=== PATIENT | female | born 1955 | race Caucasian/White ===

== ENCOUNTER 2017-03-06 05:35 | Day surgery (SDC) | payer BC, OTHER ==
[2017-03-02 08:49] VITALS: Ht 170.2 cm; Wt 100.2 kg
--- NOTE | 2017-03-02 09:40 | PAT Medication Instructions ---
Service Date Mar 02, 2017. Current Home Medication List Ascorbic Acid (Vitamin C), 1,000 MG PO QAM Aspirin (Aspirin 81), 81 MG PO QAM Atorvastatin (Lipitor), 40 MG PO QPM Cholecalciferol (Vitamin D3), 2,000 UNIT PO QAM Citalopram Hydrobromide (Citalopram Hydrobromide), 40 MG PO QAM Cyanocobalamin (Vitamin B-12 Inj), 1,000 MCG IM MONTHLY Cyclobenzaprine Hcl (Flexeril), 1 TAB PO TID Diclofenac (Voltaren), 75 MG PO BID Esomeprazole Magnesium (Nexium), 40 MG PO QAM Estrogens, Conjugated (Premarin), 1.25 MG PO HS Ferrous Sulfate (Feosol), 65 MG PO QAM Furosemide (Lasix), 40 MG PO QAM Gabapentin (Neurontin), 100 MG PO QAM Gabapentin (Neurontin), 200 MG PO HS Metformin Hcl (Glucophage), 500 MG PO BID Metoprolol Succinate (Toprol Xl), 25 MG PO QPM Montelukast Sodium (Montelukast Sodium), 10 MG PO QAM Multivitamin (Multivitamin), 1 TAB PO QAM Nitroglycerin (Nitrostat), 0.4 MG UT UD PRN for Chest Pain Pramipexole Dihydrochloride (Pramipexole Dihydrochlori), 2 MG PO HS Valsartan (Diovan), 320 MG PO QAM Medication Instructions For Your Scheduled Surgery - Continue as directed: Cyanocobalamin (Vitamin B-12 Inj), 1,000 MCG IM MONTHLY Nitroglycerin (Nitrostat), 0.4 MG UT UD PRN for Chest Pain - Hold the following medications per surgeon's instructions Aspirin (Aspirin 81), 81 MG PO QAM Diclofenac (Voltaren), 75 MG PO BID - Hold the following medications 48 hours prior to surgery: Metformin Hcl (Glucophage), 500 MG PO BID - Hold the following medications 24 hours prior to surgery: Pramipexole Dihydrochloride (Pramipexole Dihydrochlori), 2 MG PO HS - Hold the following medications the morning of surgery: Valsartan (Diovan), 320 MG PO QAM Ascorbic Acid (Vitamin C), 1,000 MG PO QAM Cyclobenzaprine Hcl (Flexeril), 1 TAB PO TID Ferrous Sulfate (Feosol), 65 MG PO QAM Furosemide (Lasix), 40 MG PO QAM Cholecalciferol (Vitamin D3), 2,000 UNIT PO QAM Multivitamin (Multivitamin), 1 TAB PO QAM - Take the following medications the morning of surgery with a sip of water OTHERWISE NOTHING TO EAT OR DRINK AFTER MIDNIGHT: Citalopram Hydrobromide (Citalopram Hydrobromide), 40 MG PO QAM Montelukast Sodium (Montelukast Sodium), 10 MG PO QAM Esomeprazole Magnesium (Nexium), 40 MG PO QAM Gabapentin (Neurontin), 100 MG PO QAM - Take the following medications as scheduled the night before surgery: Atorvastatin (Lipitor), 40 MG PO QPM Cyclobenzaprine Hcl (Flexeril), 1 TAB PO TID Metoprolol Succinate (Toprol Xl), 25 MG PO QPM Estrogens, Conjugated (Premarin), 1.25 MG PO HS Gabapentin (Neurontin), 200 MG PO HS If you have any questions please call us at [phone] or [phone] or [phone]
--- NOTE | 2017-03-02 10:24 | DIAGNOSTIC IMAGING REPORT ---
CHEST PREADMISSION(PA/LAT) CLINICAL HISTORY: Preoperative chest. Shortness of breath. COMPARISON STUDY: 12/06/2014 FINDINGS: The cardiac and mediastinal contours are normal. There is no evidence of focal pulmonary consolidation. There is no evidence of failure. No pleural effusions are visualized.[ Postsurgical changes are present within the lumbar spine. IMPRESSION: No active disease in the chest. Electronically signed by: Santana Gunderson M.D. 03/02/2017 10:23 AM Dictated Date/Time: 03/02/2017 10:23 AM
[2017-03-02 10:40] LABS: BASO % 0.5 %; BASO ABS # 0.04 K/uL (0-0.2); COMPLETE YES; HEMATOCRIT 36.1 % (37-47); IG% 0.1 %; LYMPH % 24.9 %; LYMPH ABS # 2.02 K/uL (1.2-3.4); MEAN CELL VOLUME 88.5 fL (80-100); MEAN CORPUSCULAR HEMOGLOBIN 28.7 pg (25-34); MEAN CORPUSCULAR HGB CONC 32.4 g/dl (32-36); MONO % 7.5 %; PLATELET COUNT 252 K/uL (130-400); RED BLOOD COUNT 4.08 M/uL (4.2-5.4)
[2017-03-02 10:43] LABS: URINE APPEARANCE CLEAR (CLEAR); URINE BILIRUBIN NEG (NEG); URINE COLOR YELLOW; URINE EPITHELIAL CELL AUTO >30 /lpf (0-5); URINE NITRITE NEG (NEG); URINE PH 5.5 (4.5-7.5); URINE SPECIFIC GRAVITY 1.024 (1.000-1.030); UROBILINOGEN NEG (NEG); ZZUR CULT IF INDIC CLEAN CATCH NO
[2017-03-02 10:44] LABS: MANUAL MICROSCOPIC REQUIRED? NO; REVIEW REQ? YES
[2017-03-02 10:45] LABS: BUN/CREATININE RATIO 25.8 (10-20); CREATININE 1.5 mg/dl (0.60-1.20); POTASSIUM 4.8 mmol/L (3.5-5.1)
[2017-03-02 10:51] LABS: INR 0.9 (0.9-1.1); PARTIAL THROMBOPLASTIN RATIO 0.9
[2017-03-02 11:07] LABS: URINE PATH CASTS 0-3 GRANULAR CASTS /lpf (0)
--- NOTE | 2017-03-05 22:11 | History and Physical ---
History & Physical Date Mar 05, 2017. Chief Complaint Left achilles pain History of Present Illness The patient is a 62 year old female with complaints of left achilles pain after tripping over a stool in December of this year. She had an MRI which showed a partial tear of the midsubstance of the achilles. She is now being set up for surgical management. Past Medical/Surgical History PMH: DM, HTN, hyperlipidemia, osteoarthritis, acid reflux, obesity Past surgical hx: Right and left hand, right knee, right shoulder, cholecystectomy, hysterectomy, C section Allergies Coded Allergies: Morphine (Verified Allergy, Intermediate, RASH, 03/02/17) Sulfa Drugs (Verified Allergy, Intermediate, RASH, 03/02/17) Clarithromycin (Verified Allergy, Unknown, GI SYMPTOMS, 03/02/17) Clindamycin (Verified Allergy, Unknown, GI SYMPTOMS, 03/02/17) Levofloxacin (Verified Allergy, Unknown, HIVES, 03/02/17) Moxifloxacin (Verified Allergy, Unknown, GI SYMPTOMS, 03/02/17) Penicillins (Verified Adverse Reaction, Intermediate, SEVERE VOMITING, ) Prochlorperazine (Verified Adverse Reaction, Intermediate, MUSCLE SPASMS, 03/02/17) Uncoded Allergies: ADHESIVE (Allergy, Unknown, rash, 03/02/17) Home Medications Scheduled Ascorbic Acid (Vitamin C), 1,000 MG PO QAM Aspirin (Aspirin 81), 81 MG PO QAM Atorvastatin (Lipitor), 40 MG PO QPM Cholecalciferol (Vitamin D3), 2,000 UNIT PO QAM Citalopram Hydrobromide (Citalopram Hydrobromide), 40 MG PO QAM Cyanocobalamin (Vitamin B-12 Inj), 1,000 MCG IM MONTHLY Cyclobenzaprine Hcl (Flexeril), 1 TAB PO TID Diclofenac (Voltaren), 75 MG PO BID Esomeprazole Magnesium (Nexium), 40 MG PO QAM Estrogens, Conjugated (Premarin), 1.25 MG PO HS Ferrous Sulfate (Feosol), 65 MG PO QAM Furosemide (Lasix), 40 MG PO QAM Gabapentin (Neurontin), 100 MG PO QAM Gabapentin (Neurontin), 200 MG PO HS Metformin Hcl (Glucophage), 500 MG PO BID Metoprolol Succinate (Toprol Xl), 25 MG PO QPM Montelukast Sodium (Montelukast Sodium), 10 MG PO QAM Multivitamin (Multivitamin), 1 TAB PO QAM Pramipexole Dihydrochloride (Pramipexole Dihydrochlori), 2 MG PO HS Valsartan (Diovan), 320 MG PO QAM Scheduled PRN Nitroglycerin (Nitrostat), 0.4 MG UT UD PRN for Chest Pain Physical Examination Skin: warm/dry, no rash ENT: normal ENT inspection Head: normocephalic, atraumatic Neck: supple Respiratory/Chest: lungs clear, normal breath sounds, no respiratory distress Cardiovascular: regular rate, rhythm, no murmur Abdomen / GI: normal bowel sounds, non tender Extremities: + pertinent finding (Left ankle: swelling and enlargement of the left achilles. Tender to palpation at the midsubstance achilles. 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 Plan of Treatment Recommend a left ankle achilles debridement, resection Carlos's and application PRP. All potential risks, benefits, complications, alternatives and rehab have been discussed and she wishes to proceed. She will be scheduled for 03.06.17 with ASA 81 mg BID x 4 wks for DVT prophylaxis.
[~2017-03-06] VITALS: Ht 170.2 cm; Wt 100.2 kg
[~2017-03-06 05:35] MED LIST: ASCO10003 PO; ASPI-435 PO; ATOR-24 PO; CHOL2000 PO; CITA40TA4 PO; CYAN3INJ IM; CYCL5TAB PO; DICL-201 PO; FERR1TAB24 PO; FRS/40 PO; GABA-112 PO; GLC/500 PO; METO1TAB31 PO; MONT1TAB5 PO; MULT-506 PO; NTRGSL/4 UT; NXM/40 PO; PRAM1TAB6 PO; PRM/125 PO; VALS320T PO
[2017-03-06] MEDS ORDERED: LACTATED RINGER'S 1000ML 1,000 ML IV SCH (06:00)
[2017-03-06] MEDS ORDERED: CEFAZOLIN 2000 MG/60 ML D5W IV SCH (06:00)
[2017-03-06 06:03] VITALS: BP 111/65; PULSE 70; TEMP 36.9; O2SAT 97
[2017-03-06] MEDS ORDERED: DEXAMETHASONE SOD INJ 4 MG/ML VIAL ONE (06:28)
[2017-03-06] MEDS ORDERED: BUPIVACAINE/EPINEPHRINE 0.25% 10 ML VIAL ONE (06:28)
[2017-03-06] MEDS ORDERED: MIDAZOLAM HCL 1 MG/ML 2ML VIAL ONE (06:57)
[2017-03-06] MEDS ORDERED: FENTANYL CITRATE INJ 50 MCG/1 ML 2 ML VIAL ONE ×3 (06:57→10:09)
[2017-03-06] MEDS ORDERED: BACITRACIN 50000 UNIT VIAL ONE (07:01)
--- NOTE | 2017-03-06 07:37 | History & Physical Bridge Note ---
H&P Re-Evaluation Bridge Note: I have examined the patient, reviewed the History & Physical and in the interval since the performance of the History & Physical I have noted the following changes of clinical significance: No changes noted
[2017-03-06] MEDS ORDERED: CALCIUM CHLORIDE 10% 10 ML SYR ONE (08:22)
[2017-03-06] MEDS ORDERED: THROMBIN 5000 UNITS KIT ONE (08:22)
[2017-03-06] MEDS ORDERED: GLYCOPYRROLATE INJ 0.2 MG/ML VIAL ONE (08:55)
[2017-03-06] MEDS ORDERED: LIDOCAINE HCL 2% 2 ML VIAL (20MG/ML) ONE (08:55)
[2017-03-06] MEDS ORDERED: ROCURONIUM BROMIDE 10 MG/ML 5 ML VIAL ONE (08:55)
[2017-03-06] MEDS ORDERED: NEOSTIGMINE METHYLSULFATE 5 MG/5 ML SYR ONE (08:55)
[2017-03-06] MEDS ORDERED: PROPOFOL IV EMULSION 10 MG/ML 20 ML VIAL IV ONE (08:55)
[2017-03-06] MEDS ORDERED: DiphenhydrAMINE HCL 50 MG/ML VIAL ONE (08:56)
[2017-03-06] MEDS ORDERED: ASPI-589 PEG (09:31)
[2017-03-06] MEDS ORDERED: OXYC-57 PO (09:31)
--- NOTE | 2017-03-06 09:32 | Discharge Instructions ---
Discharge Instructions Date of Service Mar 06, 2017. Admission Reason for Admission: Left Ankle Achilles Tendon Partial Tear Discharge Discharge Diagnosis / Problem: left achilles tendon partial tear Discharge Goals Goal(s): Decrease discomfort, Improve function Activity Recommendations Activity Limitations: per Instructions/Follow-up section Weightbearing Status: Left non-weightbearing . Instructions / Follow-Up Instructions / Follow-Up ACTIVITY RECOMMENDATIONS: Limitations: No weight bearing to affected limb at all times. SPECIAL CARE INSTRUCTIONS: * Take Aspirin 81 mg every 12 hours for 30 days. * Some drainage onto the dressing is normal and is no cause for alarm. * Some swelling is natural especially after walking. * When resting, keep your foot elevated above the level of your heart. * Call [facility] if you notice: -Increased drainage -Fever over 101 degrees F -Severe constant pain BANDAGE: * Leave bandage/cast in place unless otherwise directed. * Keep bandage/cast dry at all times. FOLLOW UP VISIT WITH DR. MEYERS If appointment is not already scheduled: Please call [facility] after you get home today to schedule a follow-up appointment for [address] Meyers at . Current Hospital Diet Patient's current hospital diet: Discharge Diet Recommended Diet: Regular Diet Procedures Procedures Performed: Left Ankle Achilles Debridement; Resection Carlos's Deformity; Application of Platelet Rich Plasma Pending Studies Studies pending at discharge: no Medical Emergencies . Who to Call and When: Medical Emergencies: If at any time you feel your situation is an emergency, please call 911 immediately. . Non-Emergent Contact Non-Emergency issues call your: Surgeon Call Non-Emergent contact if: temperature is above 101, your pain is not controlled, your pain is worsening . "Provider Documentation" section prepared by Josh Michael. . VTE Core Measure Inpt VTE Proph given/why not?: Other Anticoagulation, SCD's
--- NOTE | 2017-03-06 09:37 | [facility] Operative Report ---
Operative Report Operative Date Mar 06, 2017. Pre-Operative Diagnosis Left achilles tendinitis and partial tear Left Carlos's deformity. Post-Operative Diagnosis Left achilles tendinitis and partial tear Left Carlos's deformity. Procedure(s) Performed Left Ankle Achilles Debridement; Resection Carlos's Deformity; Application of Platelet Rich Plasma Concentrate Surgeon Dr. Her Adult Neurologist Surgeon(s) Josh Michael PA-C Estimated Blood Loss 1 ML Findings See dict Specimens none per surgeon Drains None Anesthesia GETT w/ popliteal block Complication(s) None Disposition Recovery Room / PACU Indications This is a 62-year-old female with severe left Achilles pain and tendinitis. Is been ongoing for the last 7-8 months. She attempted and failed conservative management including activity modification, home exercises, physical therapy, anti-inflammatories, rest, shoewear modification and bracing. MRI was performed and she was diagnosed with Left Achilles tendonosis and partial tear with Carlos's deformity. She was scheduled for surgery as indicated. Description of Procedure All potential risks, benefits, complications, alternatives, rehabilitation, potential for incomplete relief of symptoms, need for further surgery, persistent numbness, weakness, stiffness, persistent pain, DVT, PE, , bone fracture, hardware breakage, nonunion, malunion or wound complications were discussed with the patient. The patient decided to proceed with the procedure as indicated. Procedure: A popliteal block was administered in the preoperative holding area. The patient and taken to the operative suite and placed supine on the operating table. After review the consent dedication proper operative site the patient was anesthetized and endotracheal tube was placed. Next patient then rolled prone over bolsters with all bony prominences properly padded and protected. A tourniquet was applied high on the left lower extremity over cast padding. The left lower extremity was then sterilely prepped and draped in usual fashion. The left lotion was then elevated and exsanguinated and Esmarch bandage. Tourniquet was inflated to 3 50 mmHg. 15 blade scalpel was make an incision on the lateral aspect of the Achilles. The incision was deepened to subcutaneous tissue. Meticulous hemostasis was achieved with cautery. The peritenon was then identified and incised in line with skin incision. This carefully elevated both superiorly and inferiorly. Next the Carlos deformity was then clearly identified. Hohmann retractors were placed to protect soft tissues. An osteotome and mallet were used to resect the Carlos's deformity. A bone rasp then used to smooth and contour the remainder the calcaneus. This irrigated with sternal saline until clear. A small amount of bone wax was then applied to the cut bony surface of the calcaneus. The residual excess was then removed. Next a 11 blade scalpel was then used to split the Achilles tendon at the site of the thickening and partial tear. This incision was made almost through and through the tendon. Next the central one third of the damaged portion the Achilles tendon was then sharply resected with 11 blade scalpel. Mucoid degeneration was evident within the damaged portion of the Achilles. There is no fluid cyst encountered. Next the incision was scoped C irrigated until clear. Next #2 FiberWire suture was then used to perform a buried locking loop suture within the Achilles tendon and the medial half of the tendon was then closed with a buried locking loop suture. Next the lateral aspect the tendon was then closed using a buried locking loop #2 FiberWire suture. The wound as well as skin was irrigated with sternal saline. Venous blood was harvested from the patient and then spun a proprietary centrifuge and the platelet rich plasma concentrate was then extracted and then injected into the Achilles tendon at the site of the repair and also into the ceramic soft tissues. The peritenon was then closed using 3- 0 Vicryl. The dermis was closed using buried interrupted 3-0 Vicryl. The skin is closed using 4-0 nylon. A sterile compressive dressing and bulky Seth Benedict plaster splint was applied in gravity equinus position. The tourniquet was released. The patient was awakened and taken to recovery in stable condition. I attest to the content of the Intraoperative Record and any orders documented therein. Any exceptions are noted below.
[2017-03-06] MEDS ORDERED: OXYCODONE/ACETAMINOPHEN 5-325 TAB PO PRN (09:45)
[2017-03-06 10:30] VITALS: BP 111/65; PULSE 67; TEMP 36.9; O2SAT 94
[2017-03-06 11:00] VITALS: BP 132/68; PULSE 70; O2SAT 95
--- NOTE | 2017-03-06 11:01 | Anesthesiology Progress Note ---
Anesthesia Post Op Note Date & Time Mar 06, 2017 at 11:00 Vital Signs Pain Intensity: 0 Vital Signs Past 12 Hours Date Time Temp Pulse Resp B/P (MAP) Pulse Ox O2 Delivery O2 Flow Rate FiO2 03/06/17 10:30 36.9 67 18 111/65 94 Room Air 03/06/17 10:21 65 16 125/65 94 03/06/17 10:21 67 16 03/06/17 10:16 63 12 03/06/17 10:16 64 12 96 03/06/17 10:16 36.3 03/06/17 10:15 125/68 03/06/17 10:11 60 12 98 03/06/17 10:11 60 12 03/06/17 10:10 67 12 124/69 97 03/06/17 10:10 67 12 03/06/17 10:06 131/68 03/06/17 10:05 67 15 97 03/06/17 10:05 67 15 03/06/17 10:00 67 13 03/06/17 10:00 67 13 140/71 98 03/06/17 09:56 128/82 03/06/17 09:55 70 14 99 03/06/17 09:55 70 14 03/06/17 09:51 141/80 03/06/17 09:50 71 16 03/06/17 09:50 71 16 100 03/06/17 09:46 127/70 03/06/17 09:45 69 18 03/06/17 09:45 68 18 100 03/06/17 09:41 139/65 03/06/17 09:40 78 18 100 03/06/17 09:40 78 18 03/06/17 09:35 85 12 147/85 100 03/06/17 09:35 85 12 03/06/17 09:35 36.3 87 16 147/85 99 Mask 10 03/06/17 06:03 36.9 70 18 111/65 (80) 97 Room Air Notes Mental Status: alert / awake / arousable, participated in evaluation Pt Amnestic to Procedure: Yes Nausea / Vomiting: adequately controlled Pain: adequately controlled Airway Patency, RR, SpO2: stable & adequate BP & HR: stable & adequate Hydration State: stable & adequate Anesthetic Complications: no major complications apparent Block working well in pacu
[2017-03-06] MEDS ORDERED: ATROPINE SULFATE 0.1 MG/ML 5ML SYR IV PRN (11:15)
[2017-03-06] MEDS ORDERED: PROMETHAZINE HCL INJ 6.25 MG in SODIUM CHLORIDE 0.9% 50ML 50 ML IV PRN (11:15)
[2017-03-06] MEDS ORDERED: ONDANSETRON INJ 2 MG/ML 2 ML VIAL IV PRN (11:15)
[2017-03-06] MEDS ORDERED: FENTANYL CITRATE INJ 50 MCG/1 ML 2 ML VIAL IV PRN (11:15)
[2017-03-06] MEDS ORDERED: EpHEDrine SULFATE INJ 50 MG/ML AMP IV PRN (11:15)
[2017-03-06 11:35] VITALS: BP 131/70; PULSE 69; TEMP 36.8; O2SAT 95
== END 2017-03-06 11:50 | disposition home or self-care (01) ==
LOC: C.ACU 05:35
PROVIDERS: ATTEND Orthopaedic Surgery Sports Medicine
DX: S86.012A Strain of left Achilles tendon, initial encounter (principal); M76.62 Achilles tendinitis, left leg; M21.6X2 Other acquired deformities of left foot; W01.0XXA Fall on same level from slipping, tripping and stumbling without subsequent striking against object, initial encounter; E11.9 Type 2 diabetes mellitus without complications; I10 Essential (primary) hypertension; E78.5 Hyperlipidemia, unspecified; M19.90 Unspecified osteoarthritis, unspecified site; K21.9 Gastro-esophageal reflux disease without esophagitis; E66.9 Obesity, unspecified; Z90.49 Acquired absence of other specified parts of digestive tract; Z90.710 Acquired absence of both cervix and uterus; Z79.82 Long term (current) use of aspirin; I12.9 Hypertensive chronic kidney disease with stage 1 through stage 4 chronic kidney disease, or unspecified chronic kidney disease; I25.10 Atherosclerotic heart disease of native coronary artery without angina pectoris; R00.0 Tachycardia, unspecified
CPT/HCPCS: 0232T; 27650; 28118

== ENCOUNTER 2017-05-26 10:11 | Emergency (ER) | payer OTHER ==
[~2017-05-26] VITALS: Ht 170.2 cm; Wt 97.0 kg
[~2017-05-26 10:11] MED LIST changes: -ASPI-435 PO; +ASPI-589 PEG; -CITA40TA4 PO; -DICL-201 PO; -FRS/40 PO; -GLC/500 PO; +OXYC-57 PO; -PRAM1TAB6 PO; -PRM/125 PO
[2017-05-26 10:15] VITALS: TEMP 36.8; Ht 170.2 cm; Wt 97.0 kg
[2017-05-26] MEDS ORDERED: SODIUM CHLORIDE 0.9% 1000ML 1,000 ML IV STA (10:29)
[2017-05-26] MEDS ORDERED: ONDANSETRON INJ 2 MG/ML 2 ML VIAL IV STA (10:29)
[2017-05-26] MEDS ORDERED: MoRPHine SULFATE 4 MG/ML 1 ML CARP\\VIAL IV PRN (10:30)
--- NOTE | 2017-05-26 10:35 | EMERGENCY ROOM VISIT NOTE ---
History Report prepared by Augustine: Melissa Ramon Under the Supervision of: Dr. Daniel Brennan D.O. First contact with patient: 10:20 Chief Complaint: GI ASSESSMENT Stated Complaint: VOMITING UP BROWN, D, CAN'T EAT, WEAKNESS Nursing Triage Summary: pt reports she has been sick vomiting, diarrhea for 2 weeks smell of food makes her nauseated. vomited coffee ground emesis yetserday. has dry heaves now has not taken any meds History of Present Illness The patient is a 62 year old female who presents to the Emergency Room with complaints of persistent abdominal pain for the past two and a half weeks. She currently rates her discomfort as a 3/10 in severity. The patient states that for the past two and a half weeks she has been experiencing diarrhea and vomiting. She states that she cannot stand the smell of food and cannot keep anything down. The patient states that yesterday she had an episode of coffee ground emesis. She states that she has been experiencing weakness and a decrease in energy. The patient describes her abdominal pain her insides being inflamed. She states that she consulted her PCP last week and he prescribed her Zofran for her nausea, but denies any relief of her symptoms. The patient states that she called her PCP this morning and was instructed to come to the emergency department for further evaluation and treatment. She reports diaphoresis, but denies any melena or hematochezia. The patient states that she has a history of a cholecystectomy and a hysterectomy. She denies any tobacco or alcohol use. The patient reports a history of hypertension, diabetes , and two cardiac blockages. She states that her blood glucose levels have been running high at around 145 mg/dL. Source of History: patient Onset: two and a half weeks Position: abdomen Symptom Intensity: 3/10 Quality: other (inflamed) Timing: other (persistent) Associated Symptoms: + diaphoresis, + nausea, + vomiting, + weakness, No melena Note: Associated Symptoms: decrease in energy Review of Systems See HPI for pertinent positives & negatives. A total of 10 systems reviewed and were otherwise negative. Past Medical & Surgical Medical Problems: (1) Asthma (2) Bronchitis (3) Diabetes (4) Emphysema lung (5) Heart disease (6) Hypertension (7) Pneumonia Surgical Problems: (1) H/O: hysterectomy (2) History of cholecystectomy (3) History of left knee replacement (4) Previous back surgery Family History Cancer Diabetes mellitus Heart disease Hypertension Social History Smoking Status: Never Smoker Smokeless Tobacco Use: No Alcohol Use: none Marital Status: Housing Status: lives with family Occupation Status: employed Current/Historical Medications Scheduled Aspirin (Aspirin Ec), 81 MG PO DAILY Atorvastatin (Lipitor), 40 MG PO QPM Citalopram Hydrobromide (Citalopram Hydrobromide), 40 MG PO QAM Cyanocobalamin (Cyanocobalamin), 1,000 MCG IM MONTHLY Cyclobenzaprine Hcl (Flexeril), 1 TAB PO BID Esomeprazole Magnesium (Nexium), 40 MG PO QAM Estrogens, Conjugated (Premarin), 1.25 MG PO HS Furosemide (Lasix), 40 MG PO QAM Gabapentin (Neurontin), 100 MG PO BID Loperamide Hcl (Imodium), 2 MG PO UD Metformin Hcl (Glucophage), 500 MG PO BID Metoprolol Succinate (Toprol Xl), 25 MG PO QPM Montelukast Sodium (Montelukast Sodium), 10 MG PO QAM Pramipexole Dihydrochloride (Pramipexole Dihydrochlori), 2 MG PO HS Ranitidine Hcl (Zantac), 150 MG PO BID Valsartan (Diovan), 320 MG PO QAM Scheduled PRN Nitroglycerin (Nitrostat), 0.4 MG UT UD PRN for Chest Pain Oxycodone/Acetaminophen 5MG/325MG (Percocet 5MG/325MG), 1-2 TABLETS PO Q4H PRN for Pain Allergies Coded Allergies: Morphine (Verified Allergy, Intermediate, RASH, 05/26/17) Sulfa Drugs (Verified Allergy, Intermediate, RASH, 05/26/17) Clarithromycin (Verified Allergy, Unknown, GI SYMPTOMS, 05/26/17) Clindamycin (Verified Allergy, Unknown, GI SYMPTOMS, 05/26/17) Levofloxacin (Verified Allergy, Unknown, HIVES, 05/26/17) Moxifloxacin (Verified Allergy, Unknown, GI SYMPTOMS, 05/26/17) Penicillins (Verified Adverse Reaction, Intermediate, SEVERE VOMITING, ) Prochlorperazine (Verified Adverse Reaction, Intermediate, MUSCLE SPASMS, 05/26/17) Uncoded Allergies: ADHESIVE (Allergy, Unknown, rash, 03/02/17) Physical Exam Vital Signs Date Time Temp Pulse Resp B/P (MAP) Pulse Ox O2 Delivery O2 Flow Rate FiO2 05/26/17 12:53 61 18 107/62 96 05/26/17 11:57 64 18 101/59 96 Room Air 05/26/17 11:03 62 05/26/17 11:03 64 18 123/62 94 Room Air 05/26/17 10:15 36.8 71 18 125/70 95 Room Air Physical Exam GENERAL: Patient is awake, alert, mildly anxious appearing, but comfortably. EYES: The conjunctivae are clear. The pupils are round and reactive. EARS, NOSE, MOUTH AND THROAT: The nose is without any evidence of any deformity. Mucous membranes are moist tongue is midline NECK: The neck is nontender and supple. RESPIRATORY: Normal respiratory effort is noted there is no evidence of wheezing rhonchi or rales CARDIOVASCULAR: Regular rate and rhythm noted there no murmurs rubs or gallops normal S1 normal S2 GASTROINTESTINAL: The abdomen is mildly distended but soft. Tenderness in the left lower quadrant as well as the epigastric region. No guarding or rigidity. RECTAL: Brown stool, trace heme positive MUSCULOSKELETAL/EXTREMITIES: There is no evidence of gross deformity full range of motion is noted in the hips and shoulders SKIN: There is no obvious evidence of any rash. There are no petechiae, pallor or cyanosis noted. NEUROLOGIC: Patient is awake alert and oriented x3 strength is symmetric patellar reflexes are 2+ bilaterally Medical Decision & Procedures ER Provider Diagnostic Interpretation: Radiology results as stated below per my review and radiologist interpretation: CHEST ONE VIEW PORTABLE CLINICAL HISTORY: ABDOMINAL PAIN/GI pain COMPARISON STUDY: 03/02/2017 FINDINGS: The bones soft tissues and hemidiaphragms are normal. The cardiomediastinal silhouette is normal. The lungs are clear. The pulmonary vasculature is normal. IMPRESSION: Negative chest. The above report was generated using voice recognition software. It may contain grammatical, syntax or spelling errors. Electronically signed by: Skip Rizvi M.D. 05/26/2017 10:59 AM Dictated Date/Time: 05/26/2017 10:58 AM ABD/PELVIS NO IV OR ORAL CONT CT DOSE: 956.79 mGy.cm HISTORY: Nausea vomiting TECHNIQUE: Multiaxial CT images of the abdomen and pelvis were performed without contrast. A dose lowering technique was utilized adhering to the principles of ALARA. COMPARISON STUDY: 03/30/2016 FINDINGS: The lung bases are clear. The unenhanced liver, spleen, gallbladder, pancreas, kidneys, and adrenal glands are within normal limits. No bowel wall thickening or obstruction. The pelvic organs are unremarkable. No suspicious lytic or blastic osseous lesions. Fatty infiltration of liver. Prior cholecystectomy. Nonobstructive bowel pattern. Normal appendix. IMPRESSION: 1. Fatty infiltration of liver. 2. Prior cholecystectomy and lumbar laminectomy. 3. Otherwise negative study. Normal appendix.. The above report was generated using voice recognition software. It may contain grammatical, syntax or spelling errors. Electronically signed by: Skip Rizvi M.D. 05/26/2017 11:29 AM Dictated Date/Time: 05/26/2017 11:25 AM Laboratory Results 05/26/17 10:49 Red Blood Count 3.94, Mean Corpuscular Volume 86.5, Mean Corpuscular Hemoglobin 28.9, Mean Corpuscular Hemoglobin Concent 33.4, Mean Platelet Volume 9.9, Neutrophils (%) (Auto) 57.6, Lymphocytes (%) (Auto) 26.5, Monocytes (%) (Auto) 9.3, Eosinophils (%) (Auto) 6.0, Basophils (%) (Auto) 0.4, Neutrophils # (Auto) 3.17, Lymphocytes # (Auto) 1.46, Monocytes # (Auto) 0.51, Eosinophils # (Auto) 0.33, Basophils # (Auto) 0.02 05/26/17 10:49 Test 05/26/17 10:49 White Blood Count 5.50 K/uL (4.8-10.8) Red Blood Count 3.94 M/uL (4.2-5.4) Hemoglobin 11.4 g/dL (12.0-16.0) Hematocrit 34.1 % (37-47) Mean Corpuscular Volume 86.5 fL (80-100) Mean Corpuscular Hemoglobin 28.9 pg (25-34) Mean Corpuscular Hemoglobin Concent 33.4 g/dl (32-36) Platelet Count 215 K/uL (130-400) Mean Platelet Volume 9.9 fL (7.4-10.4) Neutrophils (%) (Auto) 57.6 % Lymphocytes (%) (Auto) 26.5 % Monocytes (%) (Auto) 9.3 % Eosinophils (%) (Auto) 6.0 % Basophils (%) (Auto) 0.4 % Neutrophils # (Auto) 3.17 K/uL (1.4-6.5) Lymphocytes # (Auto) 1.46 K/uL (1.2-3.4) Monocytes # (Auto) 0.51 K/uL (0.11-0.59) Eosinophils # (Auto) 0.33 K/uL (0-0.5) Basophils # (Auto) 0.02 K/uL (0-0.2) RDW Standard Deviation 44.1 fL (36.4-46.3) RDW Coefficient of Variation 13.9 % (11.5-14.5) Immature Granulocyte % (Auto) 0.2 % Immature Granulocyte # (Auto) 0.01 K/uL (0.00-0.02) Prothrombin Time 10.5 SECONDS (9.0-12.0) Prothromb Time International Ratio 1.0 (0.9-1.1) Activated Partial Thromboplast Time 25.5 SECONDS (21.0-31.0) Partial Thromboplastin Ratio 1.0 Urine Color DK YELLOW Urine Appearance CLOUDY (CLEAR) Urine pH 5.5 (4.5-7.5) Urine Specific [place] 1.021 (1.000-1.030) Urine Protein 1+ (NEG) Urine Glucose (UA) NEG (NEG) Urine Ketones TRACE (NEG) Urine Occult Blood NEG (NEG) Urine Nitrite NEG (NEG) Urine Bilirubin NEG (NEG) Urine Urobilinogen NEG (NEG) Urine Leukocyte Esterase SMALL (NEG) Urine WBC (Auto) 10-30 /hpf (0-5) Urine RBC (Auto) 5-10 /hpf (0-4) Urine Hyaline Casts (Auto) 10-30 /lpf (0-5) Urine Epithelial Cells (Auto) >30 /lpf (0-5) Urine Bacteria (Auto) NEG (NEG) Urine Pathogenic Casts /lpf (0) Urine Mucus PRESENT (NONE PRSENT) Anion Gap 5.0 mmol/L (3-11) Est Creatinine Clear Calc Drug Dose 54.0 ml/min Estimated GFR () 52.1 Estimated GFR (Non- 45.0 BUN/Creatinine Ratio 23.3 (10-20) Calcium Level 8.3 mg/dl (8.5-10.1) Total Bilirubin 0.2 mg/dl (0.2-1) Direct Bilirubin < 0.1 mg/dl (0-0.2) Aspartate Amino Transf (AST/SGOT) 26 U/L (15-37) Alanine Aminotransferase (ALT/SGPT) 37 U/L (12-78) Alkaline Phosphatase 83 U/L (45-117) Total Creatine Kinase 55 U/L (26-192) Creatine Kinase MB 0.7 ng/ml (0.5-3.6) Creatine Kinase MB Ratio 1.3 (0-3.0) Troponin I < 0.015 ng/ml (0-0.045) Total Protein 6.4 gm/dl (6.4-8.2) Albumin 3.0 gm/dl (3.4-5.0) Lipase 93 U/L (73-393) Laboratory results per my review. Medications Administered Medications (Trade) Dose Ordered Sig/Ulisses Route Start Time Stop Time Status Last Admin Dose Admin Sodium Chloride 1,000 ml @ 999 mls/hr Q1H1M STAT IV 05/26/17 10:29 05/26/17 11:29 DC 05/26/17 10:55 999 MLS/HR Ondansetron HCl (Zofran Inj) 4 mg NOW STAT IV 05/26/17 10:29 05/26/17 10:30 DC 05/26/17 10:54 4 MG Morphine Sulfate (MoRPHine SULFATE INJ) 4 mg Q15M PRN IV 05/26/17 10:30 05/26/17 13:13 DC 05/26/17 10:55 4 MG ECG Indication: abdominal pain, nausea, vomiting Rate (beats per minute): 61 Rhythm: normal sinus Findings: no acute ischemic change, no ectopy Comparison ECG Date: 03/02/17 Change: no significant change ED Course 1026: The patient was evaluated in room C10. A complete history and physical examination were performed. 1029: Ordered Zofran Inj 4 mg IV, Sodium Chloride 1000 ml @ 999 mls/hr IV, Morphine Sulfate 4 mg IV. 1220: I reevaluated the patient and she is resting comfortably. I performed a rectal exam at this time, see physical exam for further detail. I discussed the exam findings with her and I discussed the treatment plan. She verbalized complete understanding and agreement. She is ready to go home. Medical Decision Differential diagnosis: Etiologies such as appendicitis, diverticulitis, PUD, biliary pathology, UTI, pancreatitis, obstruction, mesenteric ischemia, aortic pathology, infections, inflammatory bowel disease, renal colic, as well as others were entertained. Nursing notes reviewed. The patient is a 62-year-old female who presented to the emergency department for an evaluation of 2 weeks of upper abdominal pain and vomiting. The patient currently takes a proton pump inhibitor. The patient did not have a physical exam consistent with an acute surgical abdomen. Her rectal exam revealed brown stool which was heme positive. The patient was encouraged to continue all medications as prescribed. I discussed the patient's laboratory and radiographic studies with her. She was also encouraged to start taking an H2 jose david. She was also encouraged to follow-up with her primary care physician this week for reevaluation and discuss the possibility that she may need to see a game programmer again. Otherwise she was encouraged to return to the emergency department immediately if symptoms change worsen or if the need arises. Medication Reconcilliation Current Medication List: was personally reviewed by me Impression Primary Impression: Gastritis Additional Impressions: Vomiting Heme positive stool Scribe Attestation The scribe's documentation has been prepared under my direction and personally reviewed by me in its entirety. I confirm that the note above accurately reflects all work, treatment, procedures, and medical decision making performed by me. Departure Information Dispostion Home / Self-Care Prescriptions Ranitidine Hcl (ZANTAC) 150 Mg Tab 150 MG PO BID, #60 TAB Prov: Daniel Brennan, 05/26/17 Referrals Joel Valladares M.D. (PCP) Forms HOME CARE DOCUMENTATION FORM, IMPORTANT VISIT INFORMATION, Work Instructions Patient Instructions Gastritis, [facility] Additional Instructions Call your family to schedule a follow-up appointment. Continue all medications as prescribed. Discuss the possibility with your family for a referral to a game programmer for further evaluation. Return to the emergency department immediately if symptoms change worsen or the need arises. Problem Qualifiers Primary Impression: Gastritis Gastritis type: unspecified gastritis Chronicity: acute Gastritis bleeding : with bleeding Qualified Codes: K29.01 - Acute gastritis with bleeding Additional Impressions: Vomiting Vomiting type: unspecified Vomiting Intractability: non-intractable Nausea presence: with nausea Qualified Codes: R11.2 - Nausea with vomiting, unspecified
[2017-05-26] MEDS ORDERED: ASPI81TA28 PO (10:36)
[2017-05-26] MEDS ORDERED: IMD2X PO (10:39)
[2017-05-26] MEDS ORDERED: CYNI1000 IM (10:39)
--- NOTE | 2017-05-26 11:00 | DIAGNOSTIC IMAGING REPORT ---
CHEST ONE VIEW PORTABLE CLINICAL HISTORY: ABDOMINAL PAIN/GI pain COMPARISON STUDY: 03/02/2017 FINDINGS: The bones soft tissues and hemidiaphragms are normal. The cardiomediastinal silhouette is normal. The lungs are clear. The pulmonary vasculature is normal. IMPRESSION: Negative chest. The above report was generated using voice recognition software. It may contain grammatical, syntax or spelling errors. Electronically signed by: Skip Rizvi M.D. 05/26/2017 10:59 AM Dictated Date/Time: 05/26/2017 10:58 AM
[2017-05-26 11:09] LABS: BASO % 0.4 %; BASO ABS # 0.02 K/uL (0-0.2); COMPLETE YES; HEMATOCRIT 34.1 % (37-47); IG% 0.2 %; LYMPH % 26.5 %; LYMPH ABS # 1.46 K/uL (1.2-3.4); MEAN CELL VOLUME 86.5 fL (80-100); MEAN CORPUSCULAR HEMOGLOBIN 28.9 pg (25-34); MEAN CORPUSCULAR HGB CONC 33.4 g/dl (32-36); MEAN PLATELET VOLUME 9.9 fL (7.4-10.4); MONO % 9.3 %; NEUT % 57.6 %; PLATELET COUNT 215 K/uL (130-400); RED BLOOD COUNT 3.94 M/uL (4.2-5.4)
[2017-05-26 11:19] LABS: PROTHROMBIN TIME (PATIENT) 10.5 SECONDS (9.0-12.0)
[2017-05-26 11:22] LABS: URINE APPEARANCE CLOUDY (CLEAR); URINE COLOR DK YELLOW; URINE EPITHELIAL CELL AUTO >30 /lpf (0-5); URINE NITRITE NEG (NEG); URINE PH 5.5 (4.5-7.5); URINE SPECIFIC GRAVITY 1.021 (1.000-1.030); UROBILINOGEN NEG (NEG)
[2017-05-26 11:27] LABS: ALT/SGPT 37 U/L (12-78); AST/SGOT 26 U/L (15-37); BLOOD UREA NITROGEN 29 mg/dl (7-18); BUN/CREATININE RATIO 23.3 (10-20); CALCIUM 8.3 mg/dl (8.5-10.1); CARBON DIOXIDE 28 mmol/L (21-32); CHLORIDE 106 mmol/L (98-107); CREATININE 1.26 mg/dl (0.60-1.20); GLUCOSE 104 mg/dl (70-99); POTASSIUM 4.3 mmol/L (3.5-5.1); SODIUM 139 mmol/L (136-145)
--- NOTE | 2017-05-26 11:31 | DIAGNOSTIC IMAGING REPORT ---
ABD/PELVIS NO IV OR ORAL CONT CT DOSE: 956.79 mGy.cm HISTORY: Nausea vomiting TECHNIQUE: Multiaxial CT images of the abdomen and pelvis were performed without contrast. A dose lowering technique was utilized adhering to the principles of ALARA. COMPARISON STUDY: 03/30/2016 FINDINGS: The lung bases are clear. The unenhanced liver, spleen, gallbladder, pancreas, kidneys, and adrenal glands are within normal limits. No bowel wall thickening or obstruction. The pelvic organs are unremarkable. No suspicious lytic or blastic osseous lesions. Fatty infiltration of liver. Prior cholecystectomy. Nonobstructive bowel pattern. Normal appendix. IMPRESSION: 1. Fatty infiltration of liver. 2. Prior cholecystectomy and lumbar laminectomy. 3. Otherwise negative study. Normal appendix.. The above report was generated using voice recognition software. It may contain grammatical, syntax or spelling errors. Electronically signed by: Skip Rizvi M.D. 05/26/2017 11:29 AM Dictated Date/Time: 05/26/2017 11:25 AM
[2017-05-26 11:32] LABS: ALKALINE PHOSPHATASE 83 U/L (45-117); CKMB/CK RATIO 1.3 (0-3.0)
[2017-05-26 11:44] LABS: MANUAL MICROSCOPIC REQUIRED? NO; REVIEW REQ? YES; URINE BILIRUBIN NEG (NEG)
[2017-05-26 11:49] LABS: URINE MUCUS PRESENT (NONE PRSENT)
[2017-05-26] MEDS ORDERED: RANI150T3 PO (12:31)
[2017-05-26] MEDS ORDERED: GLC/500 PO (12:49)
[2017-05-26] MEDS ORDERED: FRS/40 PO (12:49)
[2017-05-26] MEDS ORDERED: PRM/125 PO (12:49)
[2017-05-26] MEDS ORDERED: PRAM1TAB6 PO (12:49)
[2017-05-26 12:53] VITALS: BP 107/62; PULSE 61; O2SAT 96
[2017-05-26] MEDS ORDERED: CITA40TA4 PO (14:01)
== END 2017-05-26 12:54 | disposition home or self-care (01) ==
LOC: C.EDB 10:12 → C.EDC 12:54
DX: K29.01 Acute gastritis with bleeding (principal); R11.2 Nausea with vomiting, unspecified; R19.5 Other fecal abnormalities; R53.1 Weakness; R61 Generalized hyperhidrosis; I10 Essential (primary) hypertension; E11.9 Type 2 diabetes mellitus without complications; J45.909 Unspecified asthma, uncomplicated; Z79.82 Long term (current) use of aspirin; Z79.84 Long term (current) use of oral hypoglycemic drugs; Z79.899 Other long term (current) drug therapy; Z87.01 Personal history of pneumonia (recurrent); Z87.09 Personal history of other diseases of the respiratory system; Z82.49 Family history of ischemic heart disease and other diseases of the circulatory system; Z83.3 Family history of diabetes mellitus

== ENCOUNTER → 2017-06-15 | Day surgery (SDC) | payer OTHER ==
[2017-06-04 10:57] VITALS: Ht 170.2 cm; Wt 96.4 kg
[~2017-06-15] VITALS: Ht 170.2 cm; Wt 96.4 kg
[~2017-06-15] MED LIST changes: -ASCO10003 PO; -ASPI-589 PEG; +ASPI81TA28 PO; -CHOL2000 PO; +CITA40TA4 PO; +CLON0.5T3 PO; -CYAN3INJ IM; +CYNI1000 IM; -FERR1TAB24 PO; +FRS/40 PO; +GLC/500 PO; +IMD2X PO; +LIDOCAINE HCL 2% 2 ML VIAL (20MG/ML) ONE; +METO-478 PO; -METO1TAB31 PO; +MIDAZOLAM HCL 1 MG/ML 2ML VIAL ONE; -MULT-506 PO; +PRAM1TAB6 PO; +PREG1CAP28 PO; +PRM/125 PO; +PROPOFOL IV EMULSION 10 MG/ML 20 ML VIAL IV ONE; +RANI150T3 PO
--- NOTE | 2017-06-15 09:30 | Endo History and Physical ---
History & Physical Date of Service: Jun 15, 2017. Chief Complaint: Abdominal pain and hematemesis Referring Physician: Dr. Valladares History of Present Illness 62 yo CF who presents for EGD secondary to abdominal pain and hematemesis. Past Medical History Diabetes, Arthritis Past Surgical History Hx Cardiac Surgery: No (HEART CATH-NO STENTS) Hx Internal Defibrillator: No Hx Pacemaker: No Hx Abdominal Surgery: Yes (, CARL, LAURITA BSO) Hx Post-Op Nausea and Vomiting: Yes Hx Cancer Surgery: No Hx Thoracic Surgery: No Hx Orthopedic: Yes (RIGHT HAND TENDON, RIGHT TKA, LEFT KNEE SCOPE, LEFT HAND CTR, LEFT ACHILLES) Hx Urinary Tract Surgery: No Family History IBD Social History Smoking Status: Never Smoker Hx Substance Use: No (SEE MAR) Hx Alcohol Use: No Allergies Coded Allergies: Morphine (Verified Allergy, Intermediate, RASH, 06/04/17) Sulfa Drugs (Verified Allergy, Intermediate, RASH, 06/04/17) Clarithromycin (Verified Allergy, Unknown, GI SYMPTOMS, 06/04/17) Clindamycin (Verified Allergy, Unknown, GI SYMPTOMS, 06/04/17) Levofloxacin (Verified Allergy, Unknown, HIVES, 06/04/17) Moxifloxacin (Verified Allergy, Unknown, GI SYMPTOMS, 06/04/17) Penicillins (Verified Adverse Reaction, Intermediate, SEVERE VOMITING, 06/04/17) Prochlorperazine (Verified Adverse Reaction, Intermediate, MUSCLE SPASMS, 06/04/17) Uncoded Allergies: ADHESIVE (Allergy, Unknown, rash, 03/02/17) Current Medications Reported Home Medications Medications Dose Route/Sig Max Daily Dose Days Date Category Dose Instructions Lyrica (Pregabalin) 75 Mg Cap 75 Mg PO DAILY 06/15/17 Reported Klonopin (Clonazepam) 0.5 Mg Tab 0.5 Mg PO TID PRN 06/04/17 Reported Zantac (Ranitidine HCl) 150 Mg Tab 150 Mg PO BID 05/26/17 Rx Imodium (Loperamide Hcl) 2 Mg Cap 2 Mg PO UD 05/26/17 Reported Cyanocobalamin 1,000 Mcg/Ml Inj 1,000 Mcg IM MONTHLY 05/26/17 Reported Aspirin Ec (Aspirin) 81 Mg Tab 81 Mg PO QAM 05/26/17 Reported Percocet 5MG/325MG (Oxycodone/Acetaminophen) Tab 1-2 Tablets PO Q4H PRN 03/06/17 Rx PAIN Nexium (Esomeprazole Magnesium) 40 Mg Capcr 40 Mg PO QAM 03/02/17 Reported Flexeril (Cyclobenzaprine Hcl) 5 Mg Tab 1 Tab PO BID 10 03/02/17 Reported Toprol Xl (Metoprolol Succinate) 25 Mg Tab 25 Mg PO QPM 03/30/16 Reported Montelukast Sodium 10 Mg Tab 10 Mg PO QAM 03/30/16 Reported Diovan (Valsartan) 320 Mg Tab 320 Mg PO QAM 03/30/16 Reported Lipitor (Atorvastatin Calcium) 40 Mg Tab 40 Mg PO QPM 03/30/16 Reported Nitrostat (Nitroglycerin) 0.4 Mg Tab 0.4 Mg UT UD PRN 03/30/16 Reported Citalopram Hydrobromide 40 Mg Tab 40 Mg PO QAM 12/07/14 Reported Premarin (Estrogens, Conjugated) 1.25 Mg Tab 1.25 Mg PO HS 11/29/14 Reported Pramipexole Dihydrochlori (Pramipexole Dihydrochloride) 1 Mg Tab 2 Mg PO HS 11/29/14 Reported Lasix (Furosemide) 40 Mg Tab 40 Mg PO QAM 11/29/14 Reported Glucophage (Metformin Hcl) 500 Mg Tab 500 Mg PO BID 11/29/14 Reported Vital Signs Weight (Kilograms): 96.36 Height (Feet): 5 Height (Inches): 7 Date Time Temp Pulse Resp B/P (MAP) Pulse Ox O2 Delivery O2 Flow Rate FiO2 06/15/17 09:17 36.9 64 16 115/68 (84) 97 Room Air Physical Exam General Appearance: WD/WN, no apparent distress Respiratory/Chest: Auscultation: breath sounds normal Cardiovascular: Heart Auscultation: RRR Abdomen: Bowel Sounds: normal Inspection & Palpation: soft, non-distended, no tenderness, guarding & rebound Assessment and Plan Assessment: 62 yo CF who presents for EGD secondary to abdominal pain and hematemesis. Plan: Proceed with EGD.
--- NOTE | 2017-06-15 09:54 | GI REPORT ---
Procedure Date: 06/15/2017 9:06 AM Procedure: Upper GI endoscopy Indications: Epigastric abdominal pain, Hematemesis Medicines: Monitored Anesthesia Care Complications: No immediate complications. Estimated Blood Loss: Estimated blood loss: none. Procedure: Pre-Anesthesia Assessment: - Prior to the procedure, a History and Physical was performed, and patient medications and allergies were reviewed. The patient's tolerance of previous anesthesia was also reviewed. The risks and benefits of the procedure and the sedation options and risks were discussed with the patient. All questions were answered, and informed consent was obtained. Prior Anticoagulants: The patient has taken aspirin, last dose was 4 days prior to procedure. ASA Grade Assessment: II - A patient with mild systemic disease. After reviewing the risks and benefits, the patient was deemed in satisfactory condition to undergo the procedure. After obtaining informed consent, the endoscope was passed under direct vision. Throughout the procedure, the patient's blood pressure, pulse, and oxygen saturations were monitored continuously. The scope was introduced through the mouth, and advanced to the second part of duodenum. The upper GI endoscopy was accomplished without difficulty. The patient tolerated the procedure well. Findings: The Z-line was irregular. Biopsies were taken with a cold forceps for histology. Localized mild inflammation characterized by erythema was found in the gastric antrum. Biopsies were taken with a cold forceps for histology. The examined duodenum was normal. Impression: - Z-line irregular. Biopsied. - Gastritis. Biopsied. - Normal examined duodenum. Recommendation: - Resume previous diet. - Continue present medications. - Await pathology results. - Return to primary care physician as previously scheduled. Storm Chávez, 06/15/2017 9:53:19 AM This report has been signed electronically. Note Initiated On: 06/15/2017 9:06 AM I attest to the content of the Intraoperative Record and orders documented therein, exceptions below
--- NOTE | 2017-06-15 09:55 | Discharge Instructions ---
Endoscopy Patient Instructions Date / Procedure(s) Performed Jun 15, 2017. EGD Allergy Information Coded Allergies: Morphine (Verified Allergy, Intermediate, RASH, 06/04/17) Sulfa Drugs (Verified Allergy, Intermediate, RASH, 06/04/17) Clarithromycin (Verified Allergy, Unknown, GI SYMPTOMS, 06/04/17) Clindamycin (Verified Allergy, Unknown, GI SYMPTOMS, 06/04/17) Levofloxacin (Verified Allergy, Unknown, HIVES, 06/04/17) Moxifloxacin (Verified Allergy, Unknown, GI SYMPTOMS, 06/04/17) Penicillins (Verified Adverse Reaction, Intermediate, SEVERE VOMITING, 06/04/17) Prochlorperazine (Verified Adverse Reaction, Intermediate, MUSCLE SPASMS, 06/04/17) Uncoded Allergies: ADHESIVE (Allergy, Unknown, rash, 03/02/17) Discharge Date / Findings Jun 15, 2017. Gastritis s/p biopsies Distal esophageal biopsies Medication Instructions Stopped Medication(s): ASPIRIN 06/11/17 OK to resume all medications today as prescribed Reported Home Medications Medications Dose Route/Sig Max Daily Dose Days Date Category Dose Instructions Lyrica (Pregabalin) 75 Mg Cap 75 Mg PO DAILY 06/15/17 Reported Klonopin (Clonazepam) 0.5 Mg Tab 0.5 Mg PO TID PRN 06/04/17 Reported Zantac (Ranitidine HCl) 150 Mg Tab 150 Mg PO BID 05/26/17 Rx Imodium (Loperamide Hcl) 2 Mg Cap 2 Mg PO UD 05/26/17 Reported Cyanocobalamin 1,000 Mcg/Ml Inj 1,000 Mcg IM MONTHLY 05/26/17 Reported Aspirin Ec (Aspirin) 81 Mg Tab 81 Mg PO QAM 05/26/17 Reported Percocet 5MG/325MG (Oxycodone/Acetaminophen) Tab 1-2 Tablets PO Q4H PRN 03/06/17 Rx PAIN Nexium (Esomeprazole Magnesium) 40 Mg Capcr 40 Mg PO QAM 03/02/17 Reported Flexeril (Cyclobenzaprine Hcl) 5 Mg Tab 1 Tab PO BID 10 03/02/17 Reported Toprol Xl (Metoprolol Succinate) 25 Mg Tab 25 Mg PO QPM 03/30/16 Reported Montelukast Sodium 10 Mg Tab 10 Mg PO QAM 03/30/16 Reported Diovan (Valsartan) 320 Mg Tab 320 Mg PO QAM 03/30/16 Reported Lipitor (Atorvastatin Calcium) 40 Mg Tab 40 Mg PO QPM 03/30/16 Reported Nitrostat (Nitroglycerin) 0.4 Mg Tab 0.4 Mg UT UD PRN 03/30/16 Reported Citalopram Hydrobromide 40 Mg Tab 40 Mg PO QAM 12/07/14 Reported Premarin (Estrogens, Conjugated) 1.25 Mg Tab 1.25 Mg PO HS 11/29/14 Reported Pramipexole Dihydrochlori (Pramipexole Dihydrochloride) 1 Mg Tab 2 Mg PO HS 11/29/14 Reported Lasix (Furosemide) 40 Mg Tab 40 Mg PO QAM 11/29/14 Reported Glucophage (Metformin Hcl) 500 Mg Tab 500 Mg PO BID 11/29/14 Reported Provider Instructions Activity Restrictions - No exercising or heavy lifting for 24 hours. - Do not drink alcohol the day of the procedure. - Do not drive a car or operate machinery until the day after the procedure. - Do not make any important decisions or sign important papers in 24 hours after the procedure. Following Day: - Return to full activity which may include returning to work/school. Diet Start your diet with liquids and light foods (jello, soup, juice, toast). Then eat your usual diet if not nauseated. Treatment For Common After Affects For mild abdominal pain, bloating, or excessive gas: - Rest - Eat lightly - Lie on right side Follow-Up Information Follow-up with DR. GUTIERREZ as scheduled Anesthesia Information What You Should Know You have had a procedure that required some medicine to reduce anxiety and discomfort. This treatment is called moderate sedation. After receiving the treatment, you may be sleepy, but you will be able to breathe on your own. The effects of the treatment may last for several hours. Follow these instructions along with Activity/Diet recommendations noted above: * Do NOT do anything where dizziness or clumsiness would be dangerous. * Rest quietly at home today, then you can be up and about tomorrow. * Have a responsible person stay with you the rest of today. * You may have had an I.V. today. If so, you may take the dressing off later today. Recommendations Call your doctor if: * Trouble breathing * Continuous vomiting for more than 24 hours * Temperature above 101 degrees * Severe abdominal pain or bloating * Pain not relieved by pain medicine ordered * There is increased drainage or redness from any incision * A large amount of rectal bleeding greater than 2-3 tablespoons. (If you had a polyp/s removed or have hemorrhoids, a small amount of blood - from the rectum is to be expected.) * You have any unanswered questions or concerns. IN THE EVENT OF A SERIOUS EMERGENCY, GO TO THE NEAREST EMERGENCY ROOM Your discharge instructions were prepared by provider Storm Chávez. Patient Instructions Signature Page Rayne Nayak Patient (or Guardian) Signature/Date: I have read and understand the instructions given to me by my caregivers. Caregiver/RN/Doctor Signature/Date: The above-named patient and/or guardian has received patient instructions on this date. + Original Patient Signature Page (only) stays with chart. Please make copy for patient.
[2017-06-15 10:24] VITALS: BP 130/64; PULSE 62; O2SAT 98
--- NOTE | 2017-06-15 10:36 | Anesthesiology Progress Note ---
Anesthesia Post Op Note Date & Time Jun 15, 2017 at 10:36 Vital Signs Pain Intensity: 0 Vital Signs Past 12 Hours Date Time Temp Pulse Resp B/P (MAP) Pulse Ox O2 Delivery O2 Flow Rate FiO2 06/15/17 10:24 62 16 130/64 (86) 98 Room Air 06/15/17 10:05 67 16 115/65 (82) 96 Room Air 06/15/17 09:50 68 16 104/57 (73) 95 Room Air 06/15/17 09:17 36.9 64 16 115/68 (84) 97 Room Air Notes Mental Status: alert / awake / arousable, participated in evaluation Pt Amnestic to Procedure: Yes Nausea / Vomiting: adequately controlled Pain: adequately controlled Airway Patency, RR, SpO2: stable & adequate BP & HR: stable & adequate Hydration State: stable & adequate Anesthetic Complications: no major complications apparent
== END | disposition home or self-care (01) ==
LOC: C.GI 08:43
PROVIDERS: ATTEND Internal Medicine
DX: K29.50 Unspecified chronic gastritis without bleeding (principal); Z83.79 Family history of other diseases of the digestive system; Z79.82 Long term (current) use of aspirin; Z79.899 Other long term (current) drug therapy

== ENCOUNTER 2018-11-09 07:29 | Inpatient (IN) ==
--- NOTE | 2018-10-28 16:44 | PAT Medication Instructions ---
Medication Instructions Date of Service October 28, 2018 Home Medications aspirin [Aspir-Low] 81 mg PO QAM atorvastatin 40 mg PO HS cholecalciferol (vitamin D3) 2,000 unit PO QAM citalopram 60 mg PO QAM cyanocobalamin (vitamin B-12) 1,000 mcg SUBCUT MONTHLY cyclobenzaprine 1 - 2 tab PO TID PRN empagliflozin [Jardiance] 10 mg PO QAM ergocalciferol (vitamin D2) 50,000 unit PO WK esomeprazole magnesium [Nexium] 40 mg PO QAM ferrous sulfate [Slow Fe] 142 mg PO QAM furosemide [Lasix] 40 mg PO QAM irbesartan 300 mg PO QAM metformin 2 tab PO BID metoprolol succinate [Toprol XL] 50 mg PO QAM montelukast [Singulair] 10 mg PO QAM pramipexole [Mirapex] 2 tab PO HS pregabalin [Lyrica] 75 mg PO UD tramadol 50 mg PO Q8H PRN Continue as directed cyanocobalamin (vitamin B-12) 1,000 mcg SUBCUT MONTHLY STOP taking 24 hours before surgery pramipexole [Mirapex] 2 tab PO HS DO NOT take the morning of surgery cholecalciferol (vitamin D3) 2,000 unit PO QAM cyclobenzaprine 1 - 2 tab PO TID PRN empagliflozin [Jardiance] 10 mg PO QAM ergocalciferol (vitamin D2) 50,000 unit PO WK ferrous sulfate [Slow Fe] 142 mg PO QAM furosemide [Lasix] 40 mg PO QAM irbesartan 300 mg PO QAM metformin 2 tab PO BID montelukast [Singulair] 10 mg PO QAM Take morning of surgery With a small sip of water, OTHERWISE NOTHING TO EAT OR DRINK AFTER MIDNIGHT: aspirin [Aspir-Low] 81 mg PO QAM citalopram 60 mg PO QAM esomeprazole magnesium [Nexium] 40 mg PO QAM metoprolol succinate [Toprol XL] 50 mg PO QAM pregabalin [Lyrica] 75 mg PO UD tramadol 50 mg PO Q8H PRN (if needed, may be taken up to four hours before surgery) Take evening before surgery atorvastatin 40 mg PO HS cyclobenzaprine 1 - 2 tab PO TID PRN (if needed) metformin 2 tab PO BID pregabalin [Lyrica] 75 mg PO UD tramadol 50 mg PO Q8H PRN (if needed) Other Notes If you have any questions please call us at [phone] or [phone] or [phone] or [phone]
--- NOTE | 2018-10-29 12:07 | Anesthesiology Consultation ---
Date of Service October 29, 2018 Assessment & Plan (1) Encounter for pre-operative examination: PCP clearance 10/26/2018: Her EKG showed Q waves in lead III, unchanged from last March, will do echo. If echo is normal the patient is medically optimized for surgery. Addendum: "Her echocardiogram was reviewed and patient is cleared, medically stable and optimized for her surgery." *Given h/o lumbar surgery and subsequent spinal hematoma requiring evacuation, pt was educated re: SAB and GA. Chart Review Chart Review: Acceptable Risk for Surgery and Patient seen in Pre Admission Testing Teaching & Discussion Instructed NPO after midnight before surgery, except medications with 15 cc of water. Medication instructions provided according to the PAT guidelines. History Surgery Operation Date: 11/09/18 11:15 Proposed Procedures p Left Total Knee Arthroplasty - Dalton Reyes DO Height/Weight Height: 5 ft 7 in Weight: 103.3 kg Allergies Allergy/AdvReac Type Severity Reaction Status Date / Time prochlorperazine Allergy Intermediate MUSCHLE Verified 10/28/18 08:34 [From Compazine] SPASMS adhesive Allergy Mild Rash Verified 10/28/18 08:34 ciprofloxacin [From Cipro] Allergy Mild GI SYMPTOMS Verified 10/28/18 08:34 clarithromycin [From Biaxin] Allergy Mild GI SYMPTOMS Verified 10/28/18 08:34 clindamycin Allergy Mild GI SYMPTOMS Verified 10/28/18 08:34 levofloxacin [From Levaquin] Allergy Mild GI SYMPTOMS Verified 10/28/18 08:34 morphine Allergy Mild Rash Verified 10/28/18 08:34 moxifloxacin [From Avelox] Allergy Mild N/V Verified 10/28/18 08:34 Penicillins Allergy Mild GI SYMPTOMS Verified 10/28/18 08:34 Sulfa (Sulfonamide Allergy Mild Rash Verified 10/28/18 08:34 Antibiotics) Medications Home Medications Medication Instructions Recorded Confirmed Last Taken aspirin [Aspir-Low] 81 mg PO QAM 10/28/18 10/28/18 Unknown atorvastatin 40 mg PO HS 10/28/18 10/28/18 Unknown cholecalciferol (vitamin D3) 2,000 unit PO QAM 10/28/18 10/28/18 Unknown [Vitamin D3] citalopram 60 mg PO QAM 10/28/18 10/28/18 Unknown cyanocobalamin (vitamin B-12) 1,000 mcg SUBCUT MONTHLY 10/28/18 10/28/18 Unknown cyclobenzaprine 1 - 2 tab PO TID PRN 10/28/18 10/28/18 Unknown empagliflozin [Jardiance] 10 mg PO QAM 10/28/18 10/28/18 Unknown ergocalciferol (vitamin D2) 50,000 unit PO WK 10/28/18 10/28/18 Unknown esomeprazole magnesium [Nexium] 40 mg PO QAM 10/28/18 10/28/18 Unknown ferrous sulfate [Slow Fe] 142 mg PO QAM 10/28/18 10/28/18 Unknown furosemide [Lasix] 40 mg PO QAM 10/28/18 10/28/18 Unknown irbesartan 300 mg PO QAM 10/28/18 10/28/18 Unknown metformin 2 tab PO BID 10/28/18 10/28/18 Unknown metoprolol succinate [Toprol XL] 50 mg PO QAM 10/28/18 10/28/18 Unknown montelukast [Singulair] 10 mg PO QAM 10/28/18 10/28/18 Unknown pramipexole [Mirapex] 2 tab PO HS 10/28/18 10/28/18 Unknown pregabalin [Lyrica] 75 mg PO UD 10/28/18 10/28/18 Unknown tramadol 50 mg PO Q8H PRN 10/28/18 10/28/18 Unknown Past Medical History Medical History Anemia Anxiety Chronic kidney disease STAGE ? Deep vein thrombosis 04/2018 S/P ACHILLES TENDON REPAIR. Discharged from ED on Eliquis. Degenerative disc disease Depression Diabetes mellitus, type 2 GERD (gastroesophageal reflux disease) Headache Hematoma Spinal hematoma after lumbar d+f 2 YEARS AGO, required evacuation. Hyperlipidemia Hypertension Irregular heart beat NSR on EKG 04/2018. Per pt, PCP noted irregularity and is to have echo 4/2. Osteoarthritis Peripheral neuropathy BLE Restless leg syndrome Thyroid nodule BIOPSY BENIGN Past Family History Family History Grandfather (Maternal) Family history of diabetes mellitus Past Surgical History Surgical History Achilles tendon tear RT/LEFT REPAIRED Fusion of spine X 2 (HEMATOMA EVACUATED) H/O hand surgery RT TENDON History of anesthesia reaction 3-4 YEARS AGO AFTER TKA REVISION (BECAME UNRESPONSIVE AFTER RECOVERY) History of cardiac cath 2 TOTAL (LAST ONE 2017) NO STENTS PLACED History of carpal tunnel release LEFT History of cataract surgery RT/LEFT WITH IMPLANTS History of section X 1 History of cholecystectomy History of colonoscopy History of endoscopic sinus surgery History of esophagogastroduodenoscopy (EGD) History of repair of rotator cuff RT History of tooth extraction History of total abdominal hysterectomy and bilateral salpingo-oophorectomy History of total knee replacement RT AND REVISION Past Anesthesia History No Family Hx of Anesthesia Complications and Other With 2014 TKA ([facility] -- SAB and PNB without issue, no anesthesia complications. Progress note in PACU all WNL. While being transported, patient went unresponsive in elevator (per her account). Had full neurology workup including EEG. Patient fully recovered, no etiology uncovered. History of PONV Yes Motion Sickness Screening History of Motion Sickness: Yes Social History Smoking Status: Never smoker Do You Dip or Chew Tobacco: No Hx Alcohol Use: No Hx Substance Use: No substance use type: does not use Exercise / Class Metabolic Activity II 4-5 Yardwork/Stairs/Walk up hill Review of Systems Pt denies any recent chest pain, shortness of breath, palpitations, cough, fever or URI. Physical Exam Vital Signs BP: 116/76 P: 100bpm SPO2: 98% RA T: 98.1 F R: 18 ENMT Mouth: no dental restorations, no chipped teeth and no loose teeth Thyromental Distance: > or= 3.5 Finger Breadths (3.5) Mallampati Class: II Neck + short neck; neck extension not limited Respiratory normal respiratory effort Auscultation: lungs clear to auscultation bilaterally Cardiovascular Rate/Rhythm: regular rhythm and + tachycardic (slightly) Heart Sounds: no murmur Vessels: no carotid bruit Extremities: no edema Testing Electrocardiogram Date: 04/09/18 Findings: + NSR @ (78) Chest X-Ray Date: 04/09/18 Findings: + NAD Echocardiogram Date: 11/02/18 EF: 55-60% Normal left ventricular size. Left ventricle has normal systolic function. Normal right ventricle size. Normal right ventricle function. Thickened mitral valve. Grade 1 diastolic dysfunction. Laboratory Results 10/29/18 11:42 10/29/18 11:42 Blood Type O Positive 10/29/18 11:42 Antibody Screen NEGATIVE 10/29/18 11:42 PT 10.3 Seconds (9.0-12.0) 10/29/18 11:42 INR 1.0 (0.9-1.1) 10/29/18 11:42 APTT 24.4 Seconds (21.0-31.0) 10/29/18 11:42 Hemoglobin A1c 7.6 % (4.5-5.6) H 10/29/18 11:42 Urine Color Yellow 10/29/18 11:42 Urine Appearance Clear (Clear) 10/29/18 11:42 Urine pH 5.5 (4.5-7.5) 10/29/18 11:42 Ur Specific [place] <= 1.005 (1.000-1.030) 10/29/18 11:42 Urine Protein Negative (Negative) 10/29/18 11:42 Urine Glucose (UA) Negative (Negative) 10/29/18 11:42 Urine Ketones Negative (Negative) 10/29/18 11:42 Urine Nitrite Negative (Negative) 10/29/18 11:42 Ur Leukocyte Esterase Negative (Negative) 10/29/18 11:42 *Anemia ~ baseline, pt is on PO Fe.
[2018-10-29 13:48] LABS: Basophils # (auto) 0.05 K/uL (0-0.2); Basophils % (auto) 0.7 %; Eosinophils # (auto) 0.58 K/uL (0-0.5); Eosinophils % (auto) 7.8 %; Hematocrit (blood only) 32.8 % (37-47); Hemoglobin 10.2 g/dL (12.0-16.0); Immature Granulocytes # (auto) 0.01 K/uL (0.00-0.02); Immature Granulocytes % (auto) 0.1 %; Lymphocytes % (auto) 28.3 %; Mean Corpuscular Hgb Conc 31.1 g/dL (32-36); Mean Corpuscular Volume 80.8 fL (80-100); Mean Platelet Volume 10.5 fL (7.4-10.4); Monocytes # (auto) 0.45 K/uL (0.11-0.59); Monocytes % (auto) 6.1 %; Neutrophils # (auto) 4.23 K/uL (1.4-6.5); Platelet Count 290 K/uL (130-400); RDW Coefficient of Variation 15.8 % (11.5-14.5); RDW Standard Deviation 46.6 fL (36.4-46.3); Red Blood Count 4.06 M/uL (4.2-5.4); White Blood Count 7.42 K/uL (4.8-10.8)
[2018-10-29 14:04] LABS: Estimated Average Glucose 171 mg/dl; Hemoglobin A1C 7.6 % (4.5-5.6)
[2018-10-29 14:08] LABS: Potassium 4.7 mmol/L (3.5-5.1)
[2018-10-29 14:09] LABS: Albumin Level 3.6 gm/dl (3.4-5.0); Calcium 9.4 mg/dl (8.5-10.1); Creatinine Clr Calc Pharmacy 61.9 ml/min; Est GFR (African American) 59.7; Est GFR (Non-African American) 51.5
[2018-10-29 14:12] LABS: Partial Thromboplastin Ratio 0.9; Partial Thromboplastin Time 24.4 Seconds (21.0-31.0); Prothrombin Time 10.3 Seconds (9.0-12.0)
[2018-10-29 15:00] LABS: Appearance Urine Clear (Clear); Bilirubin Urine Negative (Negative); Blood Urine Negative (Negative); Color Urine Yellow; Glucose Urine UA Negative (Negative); Ketones Urine Negative (Negative); Leukocyte Esterase Urine Negative (Negative); Nitrite Urine Negative (Negative); Protein Urine Negative (Negative); Specific Gravity Urine <= 1.005 (1.000-1.030); Urobilinogen Urine Negative (Negative); pH Urine 5.5 (4.5-7.5)
--- NOTE | 2018-11-05 10:11 | History & Physical Report ---
Date of Service November 05, 2018 Date of Surgery: 11-09-18 Assessment & Plan (1) Primary osteoarthritis of left knee: Risks and benefits of procedure discussed in detail today, patient would like to proceed with a left total knee replacement at [facility] as scheduled. will obtain medical clearance prior to surgery as well as obtain PATs at [facility], has history of DVT, will place on Eliquis x 4 weeks post- op, f/u 2 weeks post op for routine post-operative care and x-ray, sooner if having any problems. will make arrangements for HHPT at the time of discharge. At this point in time, has failed conservative measures and would like to proceed with surgical intervention. History of Present Illness Chief Complaint: Left knee pain Primary Care Provider: Lola Long MD Ms Nayak is a 63 year old female who complains of left knee pain, presents for pre-op evaluation prior to a left total knee replacement at [facility] on 11-09-18. She presents with pain, crepitus, decreased rom, stiffness, instability and weakness on the left side. She states that the symptoms have been chronic non-traumatic. The symptoms occur constantly with intermittent worsening. Currently the patient states that the symptoms are severe. The pain is described as aching, throbbing and discomforting. She rates her current pain as 8/10. The symptoms are ag gravated by ascending stairs, daily activities, descending stairs, first steps while awake, standing, movement, walking and weight bearing. Rayne states that the symptoms are relieved by no specific activity. In addition to left knee pain the patient is also experiencing crepitus, decreased mobility, joint pain, limping, instability, loss of motion, nighttime awakening, pain, pain after activity and stiffness. Prior NSAIDs include Advil and Aleve. Prior pain medications include Ultram. She has been treated with a corticosteroid injection on the left side. She has also used a brace. Patient has had previous therapy. Patient has had arthroscopic surgery, on 09-15-13 Dr. Reyes performed Left knee arthroscopy with partial medial meniscectomy and chondroplasty. Pt. also had her Right knee Replaced in [address] Reyes. Allergies Allergy/AdvReac Type Severity Reaction Status Date / Time adhesive Allergy Mild Rash Verified 10/28/18 08:34 morphine Allergy Mild Rash Verified 10/28/18 08:34 Sulfa (Sulfonamide Allergy Mild Rash Verified 10/28/18 08:34 Antibiotics) prochlorperazine AdvReac Intermediate MUSCHLE Verified 11/04/18 13:52 [From Compazine] SPASMS ciprofloxacin [From Cipro] AdvReac Mild GI SYMPTOMS Verified 11/04/18 13:52 clarithromycin [From Biaxin] AdvReac Mild GI SYMPTOMS Verified 11/04/18 13:52 clindamycin AdvReac Mild GI SYMPTOMS Verified 11/04/18 13:52 levofloxacin [From Levaquin] AdvReac Mild GI SYMPTOMS Verified 11/04/18 13:52 moxifloxacin [From Avelox] AdvReac Mild N/V Verified 11/04/18 13:52 Penicillins AdvReac Mild GI SYMPTOMS Verified 11/04/18 13:52 Home Medications Home Medications Medication Instructions Recorded Confirmed Type aspirin [Aspir-Low] 81 mg PO QAM 10/28/18 10/28/18 History atorvastatin 40 mg PO HS 10/28/18 10/28/18 History cholecalciferol (vitamin D3) 2,000 unit PO QAM 10/28/18 10/28/18 History [Vitamin D3] citalopram 60 mg PO QAM 10/28/18 10/28/18 History cyanocobalamin (vitamin B-12) 1,000 mcg SUBCUT MONTHLY 10/28/18 10/28/18 History cyclobenzaprine 1 - 2 tab PO TID PRN 10/28/18 10/28/18 History empagliflozin [Jardiance] 10 mg PO QAM 10/28/18 10/28/18 History ergocalciferol (vitamin D2) 50,000 unit PO WK 10/28/18 10/28/18 History esomeprazole magnesium [Nexium] 40 mg PO QAM 10/28/18 10/28/18 History ferrous sulfate [Slow Fe] 142 mg PO QAM 10/28/18 10/28/18 History furosemide [Lasix] 40 mg PO QAM 10/28/18 10/28/18 History irbesartan 300 mg PO QAM 10/28/18 10/28/18 History metformin 2 tab PO BID 10/28/18 10/28/18 History metoprolol succinate [Toprol XL] 50 mg PO QAM 10/28/18 10/28/18 History montelukast [Singulair] 10 mg PO QAM 10/28/18 10/28/18 History pramipexole [Mirapex] 2 tab PO HS 10/28/18 10/28/18 History pregabalin [Lyrica] 75 mg PO UD 10/28/18 10/28/18 History tramadol 50 mg PO Q8H PRN 10/28/18 10/28/18 History Past Med/Surg History Medical History Anemia Anxiety Chronic kidney disease STAGE ? Deep vein thrombosis 04/2018 S/P ACHILLES TENDON REPAIR. Discharged from ED on Eliquis. Degenerative disc disease Depression Diabetes mellitus, type 2 GERD (gastroesophageal reflux disease) Headache Hematoma Spinal hematoma after lumbar d+f 2 YEARS AGO, required evacuation. Hyperlipidemia Hypertension Irregular heart beat NSR on EKG 04/2018. Per pt, PCP noted irregularity and is to have echo 4/2. Osteoarthritis Peripheral neuropathy BLE Restless leg syndrome Thyroid nodule BIOPSY BENIGN Surgical History Achilles tendon tear RT/LEFT REPAIRED Fusion of spine X 2 (HEMATOMA EVACUATED) H/O hand surgery RT TENDON History of anesthesia reaction 3-4 YEARS AGO AFTER TKA REVISION (BECAME UNRESPONSIVE AFTER RECOVERY) History of cardiac cath 2 TOTAL (LAST ONE 2017) NO STENTS PLACED History of carpal tunnel release LEFT History of cataract surgery RT/LEFT WITH IMPLANTS History of section X 1 History of cholecystectomy History of colonoscopy History of endoscopic sinus surgery History of esophagogastroduodenoscopy (EGD) History of repair of rotator cuff RT History of tooth extraction History of total abdominal hysterectomy and bilateral salpingo-oophorectomy History of total knee replacement RT AND REVISION Family History Grandfather (Maternal) Family history of diabetes mellitus Social History Preferred Language: Romansh Communication Ability: Effective Hand Box Folder Required: No Beliefs That Will Affect Care: None Current Living Situation: Spouse Other Information That Helps Us Care for You: No Feels Safe at Home: Yes Safety Concerns: Feels Safe At This Time Smoking Status: Never smoker Hx Alcohol Use: No Hx Substance Use: No Review of Systems All systems reviewed & are unremarkable except as noted in HPI & below Constitutional: no fever and no chills Respiratory: no cough and no dyspnea Cardiovascular: no chest pain, no dyspnea and no orthopnea Gastrointestinal: no abdominal pain, no nausea and no vomiting Musculoskeletal: as per Subjective / HPI Integumentary: no rash and no lesions Physical Exam Vital Signs (Past 24 Hours): Ht: 5ft 7 inches Wt: 103.3kg BP:118/70 Pulse: 68 Constitutional: WD/WN, vitals as above no acute distress Respiratory: normal respiratory effort, lungs clear to auscultation no respiratory distress and does not use accessory muscles Cardiovascular: RRR, no murmur, no edema Gastrointestinal (Abdomen): normal bowel sounds, soft, nontender, no hepa tosplenomegaly Musculoskeletal: Left Knee Physical Exam Patient ambulates with a limp and no assistance devices, overall varus alignment. There is no erythema or warmth, no atrophy or ecchymosis noted, mild suprapatellar effusion, maximum tenderness over her medial joint line negative patellar apprehension , mild crepitation with motion, biju's Negative, posterior drawer negative. positive mcmurrays medially, negative anterior drawer, knee stable with valgus/varus stress. no extensor lag. pain with active range of motion, AROM 0/3/110, Passive ROM 0/3/115. No pain with active/passive ROM of ankle. Lower Extremity Strength normal. Lower Extremity Neuro-vascular is normal Skin: no rashes, warm and dry Results & Data Diagnostic Findings Left Knee X-ray from 10-12-18 showing left knee advanced degenerative changes to the left knee, greatest medial compartments and patellofemoral joint, showing joint space narrowing of the medial compartment and patellofemoral joints, osteophyte formation and subchondral sclerosis. no acute bony pathology noted.
[~2018-11-09 07:29] MED LIST changes: +ACETAMINOPHEN 500 MG TAB PO SCH; -ASPI81TA28 PO; -ATOR-24 PO; +BUPIVACAINE 0.5 % 5 MG/1 ML PF 10ML VIAL ONE; +CEFAZOLIN 2000MG 2,000 MG/15 ML SYR IV SCH; -CITA40TA4 PO; -CLON0.5T3 PO; -CYCL5TAB PO; -CYNI1000 IM; +CeleBREX 200 MG CAP PO SCH; +FAMOTIDINE 20 MG TAB PO SCH; -FRS/40 PO; -GABA-112 PO; +GABAPENTIN 300 MG PO SCH; -GLC/500 PO; -IMD2X PO; -LIDOCAINE HCL 2% 2 ML VIAL (20MG/ML) ONE; +LR 500ML BOLUS, THEN 15ML/HR IV SCH; -METO-478 PO; +METOCLOPRAMIDE HCL 10 MG TABLET PO SCH; -MIDAZOLAM HCL 1 MG/ML 2ML VIAL ONE; -MONT1TAB5 PO; -NTRGSL/4 UT; -NXM/40 PO; -OXYC-57 PO; -PRAM1TAB6 PO; -PREG1CAP28 PO; -PRM/125 PO; -PROPOFOL IV EMULSION 10 MG/ML 20 ML VIAL IV ONE; -RANI150T3 PO; +ROPIVACAINE 0.5% 5 MG/ML 30 ML VIAL ONE; +ROPIVACAINE 0.5% HCL/PF 150 MG, BUPIVACAINE 0.5% MPF 30 ML, EPINEPHrine 30MG/30ML (OR U... INFIL SCH; -VALS320T PO; +dexAMETHasone 4 MG TAB PO SCH
[2018-11-09] MEDS ORDERED: MIDAZOLAM HCL 1 MG/ML 2ML VIAL ONE ×2 (08:00)
[2018-11-09] MEDS ORDERED: LIDOCAINE HCL 2% 2 ML VIAL/AMP(20MG/ML) INFIL ONE (08:29)
[2018-11-09] MEDS ORDERED: PROPOFOL IV EMULSION 10 MG/ML 20 ML VIAL IV ONE ×2 (08:29→11:49)
--- NOTE | 2018-11-09 08:30 | History & Physical Bridge Note ---
Date of Service November 09, 2018 History & Physical Bridge Note I have examined the patient, reviewed the History & Physical and in the interval since the performance of the History & Physical I have noted the following changes of clinical significance: no changes noted
[2018-11-09] MEDS ORDERED: POVIDONE-IODINE OP SOLN 30 ML BTL ONE (09:11)
[2018-11-09] MEDS ORDERED: ORTHO JOINT ANESTHETIC ONE (09:11)
[2018-11-09] MEDS ORDERED: BACITRACIN INJ 50,000 UNIT VIAL ONE (09:12)
[2018-11-09] MEDS ORDERED: LABETALOL HCL IV 5 MG/ML 20ML IV PRN (09:38)
[2018-11-09] MEDS ORDERED: ATROPINE SULFATE 0.1 MG/ML 10ML SYR IV PRN ×2 (09:38→12:31)
[2018-11-09] MEDS ORDERED: PROMETHAZINE HCL 6.25 MG in SODIUM CHLORIDE 0.9% 50 ML IV PRN (09:38)
[2018-11-09] MEDS ORDERED: HYDROmorphone INJ 1 MG/ML SYRINGE IV PRN (09:38)
[2018-11-09] MEDS ORDERED: ONDANSETRON INJ 2 MG/ML 2 ML VIAL IV PRN ×2 (09:38→13:16)
[2018-11-09] MEDS ORDERED: SCOPOLAMINE 1.5 MG TDSY TD ONE (09:39)
[2018-11-09] MEDS ORDERED: SCOPOLAMINE 1.5 MG TDSY ONE (09:40)
[2018-11-09] MEDS ORDERED: DEXAMETHASONE SOD INJ 4 MG/ML VIAL ONE (09:43)
[2018-11-09] MEDS ORDERED: ONDANSETRON INJ 2 MG/ML 2 ML VIAL ONE (09:43)
[2018-11-09] MEDS ORDERED: fentaNYL citrate 100 MCG/2 ML VIAL ONE ×2 (09:43→10:35)
[2018-11-09] MEDS ORDERED: ROCURONIUM BROMIDE 10 MG/ML 5 ML VIAL ONE (10:44)
[2018-11-09] MEDS ORDERED: NEOSTIGMINE METHYLSULFATE 5 MG/5 ML SYR ONE (10:44)
[2018-11-09] MEDS ORDERED: GLYCOPYRROLATE 0.2 MG/ML VIAL ONE (10:44)
[2018-11-09] MEDS ORDERED: HYDROmorphone INJ 2 MG/ML SYR/VIAL ONE (10:49)
--- NOTE | 2018-11-09 11:20 | Operative Report ---
Post Operative Report Pre & Post Diagnosis Operation Date: 11/09/18 09:50 Pre-Op Diagnosis: Left Knee Osteoathritis Post-Op Diagnosis: Left Knee Osteoathritis Procedure Operation Date: 11/09/18 09:50 Actual Procedures p Left Total Knee Arthroplasty(Left) utilizing Kane persona left total knee arthroplasty femur size 8 narrow CR tibia size EE poly-medial congruent MC 10 mm patella oval 31 x 8 asymmetric- Dalton Reyes DO Surgeon Dalton Reyes DO [employer] Member Skip JONES Estimated Blood Loss 5 Findings Consistent with Post-Op Diagnosis Presents with DJD subchondral bone cystic changes marginal osteophytes eburnated bone moderate to large effusion with [id number] changes and DJD 40 for a total knee arthroplasty after failed attempts at conservative management left knee Specimens Bone and cartilage Drains Medium bore Hemovac Complications none Disposition Accompanied Patient To Recovery: No Disposition: Recovery Room Indications Patient presents with ongoing planes of pain throughout her left knee no response to conservative management presents was after failed attempts at conservative management including physical therapy anti-inflammatories relative rest activity modification corticosteroid injections Visco supplementations relative resting bracing she presents for left total knee arthroplasty Description of Procedure After proper prepping draping the left lower extremity a anterior midline incision made in the region of the extensor mechanism and a medial parapatellar incision made the patella was subluxed lateralward medial lateral meniscal remnants were excised proximal tibia and distal femur both size and evaluated a size 8 narrow CR femur was subsequently cut utilizing for 1 block excellent me dial lateral coverage anterior posterior coverage noted be excellent the proximal tibia was then subsequently underwent osteotomy utilizing extramedullary the proximal tibial cut gave excellent coverage with a size E medial lateral meniscal rims were excised as were anterior posterior shoulder remnants the tibial peg was punched the femoral trial was placed with excellent stability in both full extension flexion 145 degrees mid flexion notes of instability was noted throughout a range of motion with a 10 mm medial congruent poly-system the patella was cut to size 31 x 8 with excellent patellar tracking noted subsequently the trials were removed the wound was irrigated with copious muscle sterile saline solution a joint injection was placed in the posterior capsule special attention paid to protect neurovascular structures at all times as well as heel periosteal sleeves the wound was irrigated with copious muscle sterile saline solution the final components were brought on the field and cemented in the following order tibia femur patella excess cement was removed medial parapatellar incision closed #1 Vicryl subcu was closed with 2-0 Vicryl skin was closed with a running subcuticular suture 3-0 Monocryl a sterile compressive dressing with Ashia was placed the patient was taken recovery in stable condition operative report dictated by Eric please note Skip JONES was necessary prepping draping retraction wound closure of the fascia subcu and skin was necessary for the case I attest to the content of the Intraoperative Record and any orders documented therein. Any exceptions are noted below.
[2018-11-09] MEDS ORDERED: LABETALOL HCL IV 5 MG/ML 20ML IV ONE (11:49)
[2018-11-09] MEDS ORDERED: METOPROLOL TARTRATE 1 MG/ML VIAL IV STA (12:31)
[2018-11-09] MEDS ORDERED: ePHEDrine sulfate 50 MG/ML AMP IV PRN (12:31)
[2018-11-09] MEDS ORDERED: METOPROLOL TARTRATE 1 MG/ML VIAL IV ONE (12:33)
--- NOTE | 2018-11-09 12:47 | Anesthesiology Progress Note ---
Date of Service November 09, 2018 Anesthesia Post Procedure Vital Signs Vital Signs: Temp Pulse Pulse Resp BP BP BP 11/09/18 12:40 94 H 12 117/77 11/09/18 12:34 118 H 122/75 11/09/18 12:30 109 H 12 122/75 11/09/18 12:20 98 H 12 111/71 11/09/18 12:10 107 H 12 152/70 H 11/09/18 12:04 37.2 C 111 H 15 143/76 H 11/09/18 07:44 36.7 C 91 H 20 140/92 Pulse Ox 11/09/18 12:40 96 11/09/18 12:34 11/09/18 12:30 94 11/09/18 12:20 98 11/09/18 12:10 97 11/09/18 12:04 98 11/09/18 07:44 96 Pain Intensity Left Knee: Pain Intensity: 0 Notes Mental Status: alert / awake / arousable Patient Amnestic to Procedure: Yes Nausea / Vomiting: adequately controlled Pain: adequately controlled Airway Patency, RR, SpO2: stable & adequate BP & HR: stable & adequate Hydration State: stable & adequate Anesthetic Complications: no major complications apparent
--- NOTE | 2018-11-09 13:01 | XRay Report ---
XR knee LT 2V routine CLINICAL HISTORY: Surgical Post Op COMPARISON: None. DISCUSSION: There are postsurgical changes of a total left knee arthroplasty and patellar resurfacing . Overlying surgical drains are evident. The femoral tibial components appear well seated. There is g as present within soft tissues consistent with the history of recent surgery. IMPRESSION: Postsurgical changes of a total left knee arthroplasty. Electronically signed by: Santana Gunderson M.D. 11/09/2018 1:00 PM
[2018-11-09] MEDS ORDERED: BISACODYL 10 MG SUPP PR PRN (13:16)
[2018-11-09] MEDS ORDERED: NON-FORMULARY MEDICATION (Cyanocobalamin (Vitamin B-12) 1,000 MCG) SQ SCH (13:16)
[2018-11-09] MEDS ORDERED: CYCLOBENZAPRINE HCL 10 MG TAB PO PRN (13:16)
[2018-11-09] MEDS ORDERED: METOCLOPRAMIDE HCL INJ 5 MG/ML 2 ML VIAL IV PRN (13:16)
[2018-11-09] MEDS ORDERED: MAGNESIUM HYDROXIDE SUSP 30 ML UDC PO PRN (13:16)
[2018-11-09] MEDS ORDERED: NALOXONE HCL 0.4 MG/1 ML VIAL/CARP IV PRN (13:16)
[2018-11-09] MEDS ORDERED: PHARMACY GLYCEMIC MGMT CONSULT PRN (14:38)
[2018-11-09] MEDS: OXYCODONE HCL IR 5 MG TAB (IMMEDIATE RELEASE) PO PRN ×2 (15:27→22:15)
[2018-11-09] MEDS ORDERED: SODIUM CHLORIDE 0.9% 1000ML 1,000 ML IV SCH (15:30)
[2018-11-09] MEDS ORDERED: INSULIN GLARGINE SOLOSTAR 100 UNITS/ML 3 ML PEN SC ONE (15:30)
--- NOTE | 2018-11-09 15:35 | Pharmacy Report ---
Glycemic Control Consultation - Date of Service November 09, 2018 - Scope Scope: Glycemic Pharmacist consulted by Skip Stevens PA-C on 11/09/17 for glycemic control and to write orders per [facility] inpatient glycemic control protocol - Objective Weight: 101.8 kg Accuchecks BSG (last 24hrs): 11/09/18 11/09/18 07:53 12:07 POC Glucose 138 H 191 H HbA1c: Hemoglobin A1c 7.6 % (4.5-5.6) H 10/29/18 11:42 - Recent Pertinent Medications Outpatient Anti-diabetic Regimen: * Empagliflozin 10 mg QAM, Metformin ER 1000 mg BID? (outpatient instructions 4 tabs daily (2000 mg daily) * A1c = 7.6 % 10/29/18 The patient is currently receiving: Risk Factors for Insulin Resistance: * Steroids: Dexamethasone 8 mg PO, dex 4 mg IV/Top? * Recent Surgery: POD #0 * Diet: T2DM - Assessment & Plan Assessment & Plan: ASSESSMENT: * Patient underwent left knee arthroplasty, POD #0, received 8 mg dexamethasone po * BSG up to 191 post-op, Lantus x1 then scale for PM * Start novolog scale weight based between stress of 2 and 3 PLAN FOR INPATIENT GLYCEMIC CONTROL: * Holding outpatient oral diabetes medications * Basal insulin * Lantus 25 units x 1 * Scale for PM: * BSG <140: Hold * BSG 140-180: 5 Units * BSG>180: 10 units * Bolus insulin * NovoLog per scale ACHS or Q6hrs while NPO * Goal Range: Low 110 mg/dL - High 180 mg/dL * Correction Factor: 20 mg/dL/unit * Nutritional / Prandial insulin per carb ratio of 1 unit per 6 grams CHO consumed * Please note that the plan above was derived based on current level of insulin resistance and hospital stress. These recommendations are appropriate for inpatient admission only. Plan of care upon discharge will need to be reassessed to avoid potential outpatient hypo/hyperglycemia. Thank you.
[2018-11-09] MEDS ORDERED: CHECK SCOPOLAMINE PATCH PLACEMENT SCH (16:00)
[2018-11-09] MEDS: INSULIN ASPART 100 UNITS/ML 3 ML PEN SC SCH ×2 (19:32→21:22)
[2018-11-09] MEDS: CEFAZOLIN 2000MG 2,000 MG/15 ML SYR IV SCH (19:36)
[2018-11-09] MEDS: SENNA 8.6 MG TAB PO SCH (19:53)
--- NOTE | 2018-11-09 20:10 | Consultation ---
Date of Consultation November 09, 2018 Assessment & Plan (1) Primary osteoarthritis of left knee: As per ortho Pre-op Hb 10.2 (2) History of DVT (deep vein thrombosis): Provoked post-op Pt states she was on aspirin 81mg QD at that time Would advise for further DVT proph in the jefferson-operative setting (3) Heart disease: Hx of cath, no stents placed but states there were two blockages noted (4) Diabetes: continue home meds ortho has requested pharmacy management (5) HTN (hypertension): continue home meds (6) Depression: continue home meds (7) Anxiety: continue home meds (8) RLS (restless legs syndrome): continue home meds (9) Iron deficiency: continue home meds (10) Leg swelling: Lasix, continue (11) DVT prophylaxis: As per ortho History of Present Illness Attending Physician: Dalton Reyes DO History of Present Illness 63 y/o F who was admitted on 11/09 s/p L TKA with Dr. Reyes. Pt is doing well post-op. Tolerating PO without issue. Pt denies fever, SOB, chest pain, abd pain, n/v/c/d, LE swelling. Pt has hx of DVT in 2018 s/p R Achilles repair. She was on aspirin 81mg QD at that time. Pt also has hx of ulcer without bleeding. Allergies Allergy/AdvReac Type Severity Reaction Status Date / Time adhesive Allergy Mild Rash Verified 11/09/18 07:55 morphine Allergy Mild Rash Verified 11/09/18 07:55 Sulfa (Sulfonamide Allergy Mild Rash Verified 11/09/18 07:55 Antibiotics) prochlorperazine AdvReac Intermediate MUSCHLE Verified 11/09/18 07:55 [From Compazine] SPASMS ciprofloxacin [From Cipro] AdvReac Mild GI SYMPTOMS Verified 11/09/18 07:55 clarithromycin [From Biaxin] AdvReac Mild GI SYMPTOMS Verified 11/09/18 07:55 clindamycin AdvReac Mild GI SYMPTOMS Verified 11/09/18 07:55 levofloxacin [From Levaquin] AdvReac Mild GI SYMPTOMS Verified 11/09/18 07:55 moxifloxacin [From Avelox] AdvReac Mild N/V Verified 11/09/18 07:55 Penicillins AdvReac Mild GI SYMPTOMS Verified 11/09/18 07:55 Home Medications Home Medications Medication Instructions Recorded Confirmed Type aspirin [Aspir-Low] 81 mg PO QAM 10/28/18 11/09/18 History atorvastatin 40 mg PO HS 10/28/18 11/09/18 History cholecalciferol (vitamin D3) 2,000 unit PO QAM 10/28/18 11/09/18 History [Vitamin D3] citalopram 60 mg PO QAM 10/28/18 11/09/18 History cyanocobalamin (vitamin B-12) 1,000 mcg SUBCUT MONTHLY 10/28/18 11/09/18 History cyclobenzaprine 2 tab PO TID PRN 10/28/18 11/09/18 History empagliflozin [Jardiance] 10 mg PO QAM 10/28/18 11/09/18 History ergocalciferol (vitamin D2) 50,000 unit PO WK 10/28/18 11/09/18 History esomeprazole magnesium [Nexium] 40 mg PO QAM 10/28/18 11/09/18 History ferrous sulfate [Slow Fe] 142 mg PO QAM 10/28/18 11/09/18 History furosemide [Lasix] 40 mg PO QAM 10/28/18 11/09/18 History irbesartan 300 mg PO QAM 10/28/18 11/09/18 History metformin 2 tab PO BID 10/28/18 11/09/18 History metoprolol succinate [Toprol XL] 50 mg PO QAM 10/28/18 11/09/18 History montelukast [Singulair] 10 mg PO QAM 10/28/18 11/09/18 History pramipexole [Mirapex] 2 tab PO HS 10/28/18 11/09/18 History pregabalin [Lyrica] 75 mg PO UD 10/28/18 11/09/18 History tramadol 50 mg PO Q8H PRN 10/28/18 11/09/18 History Patient History Medical History Anemia Anxiety Chronic kidney disease STAGE ? Deep vein thrombosis 04/2018 S/P ACHILLES TENDON REPAIR. Discharged from ED on Eliquis. Degenerative disc disease Depression Diabetes mellitus, type 2 GERD (gastroesophageal reflux disease) Headache Hematoma Spinal hematoma after lumbar d+f 2 YEARS AGO, required evacuation. Hyperlipidemia Hypertension Irregular heart beat NSR on EKG 04/2018. Per pt, PCP noted irregularity and is to have echo 4/2. Osteoarthritis Peripheral neuropathy BLE Restless leg syndrome Thyroid nodule BIOPSY BENIGN Surgical History Achilles tendon tear RT/LEFT REPAIRED Fusion of spine X 2 (HEMATOMA EVACUATED) H/O hand surgery RT TENDON History of anesthesia reaction 3-4 YEARS AGO AFTER TKA REVISION (BECAME UNRESPONSIVE AFTER RECOVERY) History of cardiac cath 2 TOTAL (LAST ONE 2017) NO STENTS PLACED History of carpal tunnel release LEFT History of cataract surgery RT/LEFT WITH IMPLANTS History of section X 1 History of cholecystectomy History of colonoscopy History of endoscopic sinus surgery History of esophagogastroduodenoscopy (EGD) History of repair of rotator cuff RT History of tooth extraction History of total abdominal hysterectomy and bilateral salpingo-oophorectomy History of total knee replacement RT AND REVISION Family History Grandfather (Maternal) Family history of diabetes mellitus Social History Preferred Language: Yakut Communication Ability: Effective 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 Helper Required: No Beliefs That Will Affect Care: None Current Living Situation: Spouse Other Information That Helps Us Care for You: No Feels Safe at Home: Yes Safety Concerns: Feels Safe At This Time Smoking Status: Never smoker Hx Alcohol Use: No Hx Substance Use: No Review of Systems Pertinent positives and negatives reviewed in HPI--all others negative Physical Exam Vital Signs (Past 24 Hours): Last Vital Signs Temp 36.6 C 11/09/18 19:40 Pulse 118 H 11/09/18 19:40 Resp 17 11/09/18 19:40 BP 116/65 11/09/18 19:40 Pulse Ox 94 11/09/18 19:40 Constitutional: WD/WN, vitals as above Eyes: normal visual schmitt by confrontation and + anicteric sclerae Neck: normal visual inspection and trachea midline Respiratory: normal respiratory effort, lungs clear to auscultation Cardiovascular: Rate/Rhythm: regular rate and regular rhythm Gastrointestinal (Abdomen): Inspection/Auscultation: abdomen not distended Percussion/Palpation: abdomen soft; abdomen nontender Musculoskeletal: Head/Neck/Chest: normocephalic and head atraumatic negative for edema, peripheral pulses intact Skin: no rashes, warm and dry Neurologic: awake; not confused Speech / Cognition: normal speech Psychiatric: A+Ox3, euthymic affect
[2018-11-09] MEDS: ATORVASTATIN 40 MG TAB PO SCH (21:19)
[2018-11-09] MEDS: PREGABALIN 75 MG CAP PO SCH (21:19)
[2018-11-09] MEDS: PRAMIPEXOLE DIHYDROCHLO 0.25 MG TAB PO SCH (21:19)
[2018-11-09] MEDS: DOCUSATE SODIUM 100 MG CAP PO SCH (21:20)
[2018-11-09] MEDS: ACETAMINOPHEN 500 MG TAB PO SCH (21:20)
[2018-11-10] MEDS: INSULIN ASPART 100 UNITS/ML 3 ML PEN SC SCH ×6 (01:06→21:44)
[2018-11-10] MEDS: CEFAZOLIN 2000MG 2,000 MG/15 ML SYR IV SCH (02:17)
[2018-11-10] MEDS ORDERED: COUGH DROP (SUGAR FREE) LOZ 24 LOZ/1 BOX BUCCAL PRN (04:13)
[2018-11-10] MEDS: ACETAMINOPHEN 500 MG TAB PO SCH ×3 (05:50→21:34)
[2018-11-10] MEDS: OXYCODONE HCL IR 5 MG TAB (IMMEDIATE RELEASE) PO PRN ×2 (05:53→10:53)
[2018-11-10] MEDS: HYDROmorphone INJ 0.5 MG/0.5 ML SYR IV PRN ×3 (07:04→21:39)
[2018-11-10 07:25] LABS: Hematocrit (blood only) 27.3 % (37-47); Hemoglobin 8.7 g/dL (12.0-16.0); Mean Corpuscular Hgb Conc 31.9 g/dL (32-36); Mean Corpuscular Volume 80.3 fL (80-100); Platelet Count 242 K/uL (130-400); RDW Coefficient of Variation 15.9 % (11.5-14.5); RDW Standard Deviation 46.7 fL (36.4-46.3); White Blood Count 11.56 K/uL (4.8-10.8)
[2018-11-10 07:46] LABS: Calcium 8.6 mg/dl (8.5-10.1); Creatinine Clr Calc Pharmacy 54.6 ml/min; Est GFR (African American) 51.8; Est GFR (Non-African American) 44.7; Potassium 4.1 mmol/L (3.5-5.1)
--- NOTE | 2018-11-10 08:22 | Orthopedic Progress Note ---
Date of Service November 10, 2018 Assessment & Plan (1) Left knee DJD: Begin PT and OT protocols today. Weightbearing as tolerated. DVT prophylaxis with apixaban, SCDs, DEMARIO hose. Pain management with acetaminophen, hydromorphone, oxycodone. Medical management per susan Patel physician group hospitalist service. DC planning-patient is planning on home health services when discharged home. Subjective Postop day 1 status post left total knee arthroplasty. Patient is currently sitting up in bed. She is awake and alert and oriented. She has no overt complaints. She states that she did not sleep well due to being up to the bathroom multiple times during the night. Pain is currently controlled. She denies shortness of breath, chest pain, lightheadedness. She did state that she has a history of her heart racing off and on. Apparently this occurred just shortly after surgery and also once when she got appear on the floor. Physical Exam Vital Signs (Past 24 Hours): Last Vital Signs Temp 36.5 C 11/10/18 07:18 Pulse 82 11/10/18 07:18 Resp 19 11/10/18 07:18 BP 116/72 11/10/18 07:18 Pulse Ox 95 11/10/18 07:18 Physical Exam: Dressings are clean, dry, and intact. Calves are soft nontender. Neurovascular is intact. Toes are mobile. Hemovac drainage was 125 mL's from the previous shift Results & Data Laboratory Results 11/10/18 11/10/18 11/10/18 Range/Units 06:49 06:49 04:05 WBC 11.56 H (4.8-10.8) K/uL RBC 3.40 L (4.2-5.4) M/uL Hgb 8.7 L (12.0-16.0) g/dL Hct 27.3 L (37-47) % MCV 80.3 (80-100) fL MCH 25.6 (25-34) pg MCHC 31.9 L (32-36) g/dL RDW Std Deviation 46.7 H (36.4-46.3) fL RDW Coeff of Jana 15.9 H (11.5-14.5) % Plt Count 242 (130-400) K/uL MPV 10.0 (7.4-10.4) fL Sodium 137 (136-145) mmol/L Potassium 4.1 (3.5-5.1) mmol/L Chloride 109 H (98-107) mmol/L Carbon Dioxide 22 (21-32) mmol/L Anion Gap 6.0 (3-11) BUN 29 H (7-18) mg/dl Creatinine 1.26 H (0.6-1.2) mg/dl Est Cr Clr Drug Dosing 54.6 ml/min Est GFR ( Amer) 51.8 Est GFR (Non-Af Amer) 44.7 BUN/Creatinine Ratio 23.0 H (10-20) Glucose 186 H (70-99) mg/dl POC Glucose 138 H (70-99) Calcium 8.6 (8.5-10.1) mg/dl 11/09/18 11/09/18 11/09/18 Range/Units 23:49 20:41 17:14 WBC (4.8-10.8) K/uL RBC (4.2-5.4) M/uL Hgb (12.0-16.0) g/dL Hct (37-47) % MCV (80-100) fL MCH (25-34) pg MCHC (32-36) g/dL RDW Std Deviation (36.4-46.3) fL RDW Coeff of Jana (11.5-14.5) % Plt Count (130-400) K/uL MPV (7.4-10.4) fL Sodium (136-145) mmol/L Potassium (3.5-5.1) mmol/L Chloride (98-107) mmol/L Carbon Dioxide (21-32) mmol/L Anion Gap (3-11) BUN (7-18) mg/dl Creatinine (0.6-1.2) mg/dl Est Cr Clr Drug Dosing ml/min Est GFR ( Amer) Est GFR (Non-Af Amer) BUN/Creatinine Ratio (10-20) Glucose (70-99) mg/dl POC Glucose 125 H 226 H 206 H (70-99) Calcium (8.5-10.1) mg/dl 11/09/18 Range/Units 12:07 WBC (4.8-10.8) K/uL RBC (4.2-5.4) M/uL Hgb (12.0-16.0) g/dL Hct (37-47) % MCV (80-100) fL MCH (25-34) pg MCHC (32-36) g/dL RDW Std Deviation (36.4-46.3) fL RDW Coeff of Jana (11.5-14.5) % Plt Count (130-400) K/uL MPV (7.4-10.4) fL Sodium (136-145) mmol/L Potassium (3.5-5.1) mmol/L Chloride (98-107) mmol/L Carbon Dioxide (21-32) mmol/L Anion Gap (3-11) BUN (7-18) mg/dl Creatinine (0.6-1.2) mg/dl Est Cr Clr Drug Dosing ml/min Est GFR ( Amer) Est GFR (Non-Af Amer) BUN/Creatinine Ratio (10-20) Glucose (70-99) mg/dl POC Glucose 191 H (70-99) Calcium (8.5-10.1) mg/dl
--- NOTE | 2018-11-10 08:30 | Anesthesiology Progress Note ---
Date of Service November 10, 2018 Anesthesia Post Procedure Vital Signs Vital Signs: Temp Pulse Pulse Pulse Resp BP BP 11/10/18 07:18 36.5 C 82 19 116/72 11/10/18 04:00 36.5 C 74 18 115/74 11/09/18 23:37 36.6 C 79 17 100/62 11/09/18 19:40 36.6 C 118 H 17 116/65 11/09/18 16:22 36.7 C 117 H 18 130/74 11/09/18 15:15 111 H 16 114/73 11/09/18 14:34 123 H 21 134/71 11/09/18 14:10 95 H 18 127/76 11/09/18 13:44 115 H 18 142/79 H 11/09/18 13:15 36.7 C 120 H 18 134/74 11/09/18 13:05 93 H 15 116/85 11/09/18 12:50 37.2 C 98 H 14 106/88 11/09/18 12:40 94 H 12 117/77 11/09/18 12:34 118 H 122/75 11/09/18 12:30 109 H 12 122/75 11/09/18 12:20 98 H 12 111/71 11/09/18 12:10 107 H 12 152/70 H 11/09/18 12:04 37.2 C 111 H 15 143/76 H Pulse Ox 11/10/18 07:18 95 11/10/18 04:00 95 11/09/18 23:37 90 11/09/18 19:40 94 11/09/18 16:22 96 11/09/18 15:15 96 11/09/18 14:34 96 11/09/18 14:10 95 11/09/18 13:44 93 11/09/18 13:15 97 11/09/18 13:05 95 11/09/18 12:50 99 11/09/18 12:40 96 11/09/18 12:34 11/09/18 12:30 94 11/09/18 12:20 98 11/09/18 12:10 97 11/09/18 12:04 98 Notes Mental Status: alert / awake / arousable and participated in evaluation Nausea / Vomiting: adequately controlled Pain: adequately controlled Airway Patency, RR, SpO2: stable & adequate BP & HR: stable & adequate Hydration State: stable & adequate Neuraxial Anesthesia: sensory block resolved Anesthetic Complications: Pt Satisfied with anesthetic care
[2018-11-10] MEDS: CHOLECALCIFEROL 1,000 UNITS TAB PO SCH (08:36)
[2018-11-10] MEDS: MULTIVITAMIN TAB PO SCH (08:36)
[2018-11-10] MEDS: DOCUSATE SODIUM 100 MG CAP PO SCH ×2 (08:36→20:43)
[2018-11-10] MEDS: APIXABAN 5 MG TABLET PO SCH ×2 (08:36→20:44)
[2018-11-10] MEDS: FERROUS SULFATE 325 MG TAB PO SCH (08:37)
[2018-11-10] MEDS: METOPROLOL SUCC 50MG EXT REL TAB PO SCH (08:37)
[2018-11-10] MEDS: CITALOPRAM 40 MG TAB PO SCH (08:38)
[2018-11-10] MEDS: MONTELUKAST SODIUM 10 MG TABLET PO SCH (08:38)
[2018-11-10] MEDS: PREGABALIN 75 MG CAP PO SCH ×2 (08:45→20:44)
[2018-11-10] MEDS ORDERED: INSULIN GLARGINE SOLOSTAR 100 UNITS/ML 3 ML PEN SC ONE ×2 (09:00→21:00)
[2018-11-10] MEDS ORDERED: FERROUS SULFATE 325 MG TAB PO SCH (09:00)
[2018-11-10] MEDS ORDERED: FERROUS SULFATE ELIX 220MG/5ML PO SCH (09:00)
--- NOTE | 2018-11-10 14:47 | Pharmacy Report ---
Pharmacy Glycemic Short Note 2 - Date of Service November 10, 2018 - Glycemic Short BSG Results (Last 24 hours): 11/09/18 11/09/18 11/09/18 17:14 20:41 23:49 Glucose POC Glucose 206 H 226 H 125 H 11/10/18 11/10/18 04:05 06:49 Glucose 186 H POC Glucose 138 H OUTPATIENT ANTIDIABETIC REGIMEN: * Empagliflozin 10 mg qam, Metformin ER 1000 mg BID ASSESSMENT: * Post-op day #1 following left knee replacement; received dexamethasone 8 mg PO preop/dex 4 mg IV? and no further steroids * BSGs yesterday 125-226; Fasting this AM 186- did not order intended HS lantus dose- will increase scale today * Prandial BSGs better controlled today- will continue current novolog parameters PLAN FOR INPATIENT GLYCEMIC CONTROL: * Hold outpatient oral diabetes medications * Basal insulin * Lantus 15 units AM x 1 * Scale for PM * <110: Hold * 110-140: 5 Units * 141-180: 10 Units * >180: 15 Units * Bolus insulin * NovoLog per scale ACHS or Q6hrs while NPO * Goal Range: Low 110 mg/dL - High 140 mg/dL * Correction Factor: 20 mg/dL/unit * Nutritional / Prandial insulin per carb ratio of 1 unit per 6 grams CHO consumed
[2018-11-10] MEDS: SENNA 8.6 MG TAB PO SCH (20:43)
[2018-11-10] MEDS: ATORVASTATIN 40 MG TAB PO SCH (20:43)
--- NOTE | 2018-11-10 21:31 | Hospitalist Progress Note ---
Date of Service November 10, 2018 Assessment & Plan (1) Primary osteoarthritis of left knee: POD #1 s/p left TKR DVT proph, pain control, dispo - per ortho (2) History of DVT (deep vein thrombosis): Provoked post-op during prior surgery agree with eliquis 5mg BID for DVTproph (3) Heart disease: nonobstructive CAD cont BB, statin resume asa at earliest time possible (4) Diabetes: pharmacy managing control very adequate (5) HTN (hypertension): continue home meds controlled (6) Depression: continue home meds no issues (7) Anxiety: continue home meds (8) RLS (restless legs syndrome): continue mirapex (9) Iron deficiency: history of such now with superimposed acute blood loss anemia repeat CBC am will need Fe supplementation larger dose at dc and outpt f/u (10) Rash: oxycodone allergy? rash on face however looks like rosacea or even butterfly malar rash follow this carefully to resolution (11) DVT prophylaxis: Ortho has ordered eliquis 5mg BID Subjective overall good day today she did, however, develop pruritic rash on arms sometime late this am after taking flexeril and oxycodone she has taken flexeril "for years" she also developed rash on her face she has tendency towards "tenisha cheeks" but the appearance today is much worse than typical reports chronic anemia and outpatient w/u has been unrevealing +flatus and eating well Constitutional: no fever Respiratory: no cough and no dyspnea Cardiovascular: no chest pain Gastrointestinal: no abdominal pain Physical Exam Vital Signs (Past 24 Hours): Last Vital Signs Temp 36.7 C 11/10/18 15:05 Pulse 83 11/10/18 15:05 Resp 17 11/10/18 15:05 BP 125/78 11/10/18 15:05 Pulse Ox 99 11/10/18 15:05 Constitutional: well developed, well nourished and + obese; no acute distress ENMT: external ear and nose normal, oropharynx normal Respiratory: normal respiratory effort, lungs clear to auscultation Cardiovascular: Rate/Rhythm: regular rate and regular rhythm Heart Sounds: normal S1 and normal S2; no murmur Vessels: posterior tibial pulses present and dorsalis pedis pulses present; no JVD Extremities: + edema (minimal - left ankle) Gastrointestinal (Abdomen): normal bowel sounds, soft, nontender, no hepatosplenomegaly Musculoskeletal: left knee wrapped in large dressing w/ drain in place Skin: rosacea vs malar rash vs drug reaction rash on face; erythematous papules on b/l arms with dry skin background Psychiatric: A+Ox3, euthymic affect Results & Data Laboratory Results Laboratory Results - last 24 hr 11/09/18 11/10/18 11/10/18 23:49 04:05 06:49 WBC 11.56 H RBC 3.40 L Hgb 8.7 L Hct 27.3 L MCV 80.3 MCH 25.6 MCHC 31.9 L RDW Std Deviation 46.7 H RDW Coeff of Jana 15.9 H Plt Count 242 MPV 10.0 Sodium Potassium Chloride Carbon Dioxide Anion Gap BUN Creatinine Est Cr Clr Drug Dosing Est GFR ( Amer) Est GFR (Non-Af Amer) BUN/Creatinine Ratio Glucose POC Glucose 125 H 138 H Calcium 11/10/18 11/10/18 11/10/18 06:49 08:11 12:00 WBC RBC Hgb Hct MCV MCH MCHC RDW Std Deviation RDW Coeff of Jana Plt Count MPV Sodium 137 Potassium 4.1 Chloride 109 H Carbon Dioxide 22 Anion Gap 6.0 BUN 29 H Creatinine 1.26 H Est Cr Clr Drug Dosing 54.6 Est GFR ( Amer) 51.8 Est GFR (Non-Af Amer) 44.7 BUN/Creatinine Ratio 23.0 H Glucose 186 H POC Glucose 190 H 143 H Calcium 8.6 11/10/18 17:01 WBC RBC Hgb Hct MCV MCH MCHC RDW Std Deviation RDW Coeff of Jana Plt Count MPV Sodium Potassium Chloride Carbon Dioxide Anion Gap BUN Creatinine Est Cr Clr Drug Dosing Est GFR ( Amer) Est GFR (Non-Af Amer) BUN/Creatinine Ratio Glucose POC Glucose 107 H Calcium (1) Diabetes Diabetes mellitus type: type 2 Diabetes mellitus terminal superintendent insulin use: without skilled nursing use Diabetes mellitus complication status: without complication Qualified Code(s): E11.9 - Type 2 diabetes mellitus without complications (2) Depression Depression Type: unspecified Qualified Code(s): F32.9 - Major depressive disorder, single episode, unspecified (3) HTN (hypertension) Hypertension type: essential hypertension Qualified Code(s): I10 - Essential (primary) hypertension
[2018-11-10] MEDS ORDERED: PRAMIPEXOLE DIHYDROCHLO 0.5 MG TAB PO ONE (22:45)
[2018-11-10] MEDS: PRAMIPEXOLE DIHYDROCHLO 0.25 MG TAB PO SCH (22:50)
[2018-11-10] MEDS: HYDROCODONE/ACETAMOPHEN 5/325MG TAB PO PRN (23:28)
[2018-11-11] MEDS: HYDROmorphone INJ 0.5 MG/0.5 ML SYR IV PRN (04:15)
[2018-11-11] MEDS: ACETAMINOPHEN 500 MG TAB PO SCH ×3 (05:57→14:25)
[2018-11-11] MEDS: HYDROCODONE/ACETAMOPHEN 5/325MG TAB PO PRN (06:05)
[2018-11-11 06:58] LABS: Hematocrit (blood only) 27.3 % (37-47); Hemoglobin 8.6 g/dL (12.0-16.0); Mean Corpuscular Hgb Conc 31.5 g/dL (32-36); Mean Corpuscular Volume 80.1 fL (80-100); Mean Platelet Volume 9.5 fL (7.4-10.4); Platelet Count 228 K/uL (130-400); RDW Coefficient of Variation 16.4 % (11.5-14.5); RDW Standard Deviation 47.9 fL (36.4-46.3); Red Blood Count 3.41 M/uL (4.2-5.4); White Blood Count 9.91 K/uL (4.8-10.8)
--- NOTE | 2018-11-11 07:34 | Orthopedic Progress Note ---
Date of Service November 11, 2018 Assessment & Plan (1) Left knee DJD: POD #2 s/p Left tKA PT and OT protocols today. Weightbearing as tolerated. DVT prophylaxis with apixaban, SCDs, DEMARIO hose. Pain management with acetaminophen, hydromorphone, did d/c the oxy and using [place], no issues since switching. Medical management per [facility] physician group hospitalist service. DC planning-patient is planning on home health services when discharged home. Subjective Postop day 2 status post left total knee arthroplasty. Patient is currently sitting up in bed. She is awake and alert and oriented. She has no overt complaints. pain better today. rash on face has resolved. Musculoskeletal: as per Subjective / HPI Physical Exam Vital Signs (Past 24 Hours): Last Vital Signs Temp 37.0 C 11/11/18 06:59 Pulse 82 11/11/18 06:59 Resp 17 11/11/18 06:59 BP 145/76 H 11/11/18 06:59 Pulse Ox 94 11/11/18 06:59 Constitutional: WD/WN, vitals as above no acute distress Musculoskeletal: left knee: NVDI, calf SNT, negative binh sign. DP palpable, able to wiggle toes/ankle movement without difficulty. AJIT dressing clean dry and intact. expected post-operative bruising noted.
[2018-11-11 07:35] LABS: Calcium 8.7 mg/dl (8.5-10.1); Creatinine Clr Calc Pharmacy 64.9 ml/min; Est GFR (African American) 63.8; Est GFR (Non-African American) 55.1; Potassium 4.6 mmol/L (3.5-5.1)
--- NOTE | 2018-11-11 07:42 | Discharge Summary ---
Date of Service Date of Discharge: November 11, 2018 Date of Admission: 11-09-18 Admission HPI Per Admitting Provider Ms Nayak is a 63 year old female who complains of left knee pain, presents for pre-op evaluation prior to a left total knee replacement at [facility] on 11-09-18. She presents with pain, crepitus, decreased rom, stiffness, instability and weakness on the left side. She states that the symptoms have been chronic non-traumatic. The symptoms occur constantly with intermittent worsening. Currently the patient states that the symptoms are severe. The pain is described as aching, throbbing and discomforting. She rates her current pain as 8/10. The symptoms are aggravated by ascending stairs, daily activities, descending stairs, first steps while awake, standing, movement, walking and weight bearing. Rayne states that the symptoms are relieved by no specific activity. In addition to left knee pain the patient is also experiencing crepitus, decreased mobility, joint pain, limping, instability, loss of motion, nighttime awakening, pain, pain after activity and stiffness. Prior NSAIDs include Advil and Aleve. Prior pain medications include Ultram. She has been treated with a corticosteroid injection on the left side. She has also used a brace. Patient has had previous therapy. Patient has had arthroscopic surgery, on 09-15-13 Dr. Reyes performed Left knee arthroscopy with partial medial meniscectomy and chondroplasty. Pt. also had her Right knee Replaced in [address] Reyes. Principal Diagnosis left knee osteoarthritis Discharge Exam Constitutional WD/WN, vitals as above no acute distress Respiratory normal respiratory effort, lungs clear to auscultation no respiratory distress and does not use accessory muscles Cardiovascular RRR, no murmur, no edema Gastrointestinal (Abdomen) normal bowel sounds, soft, nontender, no hepatosplenomegaly Musculoskeletal left knee: NVDI, calf SNT, negative binh sign. DP palpable, able to wiggle toes/ankle movement without difficulty. AJIT dressing clean dry and intact. exp ected post-operative bruising noted. Skin no rashes, warm and dry Discharge Data Allergies Allergy/AdvReac Type Severity Reaction Status Date / Time adhesive Allergy Mild Rash Verified 11/09/18 07:55 morphine Allergy Mild Rash Verified 11/09/18 07:55 Sulfa (Sulfonamide Allergy Mild Rash Verified 11/09/18 07:55 Antibiotics) prochlorperazine AdvReac Intermediate MUSCHLE Verified 11/09/18 07:55 [From Compazine] SPASMS ciprofloxacin [From Cipro] AdvReac Mild GI SYMPTOMS Verified 11/09/18 07:55 clarithromycin [From Biaxin] AdvReac Mild GI SYMPTOMS Verified 11/09/18 07:55 clindamycin AdvReac Mild GI SYMPTOMS Verified 11/09/18 07:55 levofloxacin [From Levaquin] AdvReac Mild GI SYMPTOMS Verified 11/09/18 07:55 moxifloxacin [From Avelox] AdvReac Mild N/V Verified 11/09/18 07:55 Penicillins AdvReac Mild GI SYMPTOMS Verified 11/09/18 07:55 Consultations 11/09/18 13:16 Consult Case Management - Discharge Planning Routine Consult Hospitalist Routine Procedures Performed Operation Date: 11/09/18 09:50 Actual Procedures p Left Total Knee Arthroplasty(Left) - Dalton Reyes DO Ordered Studies 11/09/18 05:00 US - OR guided needle placemen Routine XR knee LT 2V routine CLINICAL HISTORY: Surgical Post Op COMPARISON: None. DISCUSSION: There are postsurgical changes of a total left knee arthroplasty and patellar resurfacing. Overlying surgical drains are evident. The femoral tibial components appear well seated. There is gas present within soft tissues consistent with the history of recent surgery. IMPRESSION: Postsurgical changes of a total left knee arthroplasty. Hospital Course (1) Left knee DJD: POD #2 s/p Left tKA PT and OT protocols today. Weightbearing as tolerated. DVT prophylaxis with apixaban, SCDs, DEMARIO hose. Pain management with acetaminophen, hydromorphone, did d/c the oxy and using [place], no issues since switching. Medical management per [facility] physician group hospitalist service. DC planning-patient is planning on home health services when discharged home. Patient was a same day admission after undergoing a successful left TKA. She tolerated the procedure well. Post-operatively, her activity was progressed and well tolerated. Please refer to daily progress notes and PT notes for complete details. After exam on 11/11/18, patient felt to be stable for discharge home with HHPT. Patient will f/u in the office in 2 weeks for further evaluation including x-rays and incision check, sooner if having any issues or concerns. Below are pertinent labs/studies during their hospital stay: Laboratory Results WBC 9.91 K/uL (4.8-10.8) 11/11/18 06:47 RBC 3.41 M/uL (4.2-5.4) L 11/11/18 06:47 Hgb 8.6 g/dL (12.0-16.0) L 11/11/18 06:47 Hct 27.3 % (37-47) L 11/11/18 06:47 MCV 80.1 fL (80-100) 11/11/18 06:47 MCH 25.2 pg (25-34) 11/11/18 06:47 MCHC 31.5 g/dL (32-36) L 11/11/18 06:47 RDW Std Deviation 47.9 fL (36.4-46.3) H 11/11/18 06:47 RDW Coeff of Jana 16.4 % (11.5-14.5) H 11/11/18 06:47 Plt Count 228 K/uL (130-400) 11/11/18 06:47 MPV 9.5 fL (7.4-10.4) 11/11/18 06:47 Immature Gran % (Auto) 0.1 % 10/29/18 11:42 Neut % (Auto) 57.0 % 10/29/18 11:42 Lymph % (Auto) 28.3 % 10/29/18 11:42 [place] % (Auto) 6.1 % 10/29/18 11:42 Eos % (Auto) 7.8 % 10/29/18 11:42 Baso % (Auto) 0.7 % 10/29/18 11:42 Immature Gran # (Auto) 0.01 K/uL (0.00-0.02) 10/29/18 11:42 Neut # (Auto) 4.23 K/uL (1.4-6.5) 10/29/18 11:42 Lymph # (Auto) 2.10 K/uL (1.2-3.4) 10/29/18 11:42 [place] # (Auto) 0.45 K/uL (0.11-0.59) 10/29/18 11:42 Eos # (Auto) 0.58 K/uL (0-0.5) H 10/29/18 11:42 Baso # (Auto) 0.05 K/uL (0-0.2) 10/29/18 11:42 PT 10.3 Seconds (9.0-12.0) 10/29/18 11:42 INR 1.0 (0.9-1.1) 10/29/18 11:42 APTT 24.4 Seconds (21.0-31.0) 10/29/18 11:42 PTT Ratio 0.9 10/29/18 11:42 Sodium 136 mmol/L (136-145) 11/11/18 06:47 Potassium 4.6 mmol/L (3.5-5.1) 11/11/18 06:47 Chloride 109 mmol/L (98-107) H 11/11/18 06:47 Carbon Dioxide 24 mmol/L (21-32) 11/11/18 06:47 Anion Gap 3.0 (3-11) 11/11/18 06:47 BUN 23 mg/dl (7-18) H 11/11/18 06:47 Creatinine 1.06 mg/dl (0.6-1.2) 11/11/18 06:47 Est Cr Clr Drug Dosing 64.9 ml/min 11/11/18 06:47 Est GFR ( Amer) 63.8 11/11/18 06:47 Est GFR (Non-Af Amer) 55.1 11/11/18 06:47 BUN/Creatinine Ratio 22.0 (10-20) H 11/11/18 06:47 Glucose 142 mg/dl (70-99) H 11/11/18 06:47 POC Glucose 103 (70-99) H 11/10/18 21:06 Estimat Average Glucose 171 mg/dl 10/29/18 11:42 Hemoglobin A1c 7.6 % (4.5-5.6) H 10/29/18 11:42 Calcium 8.7 mg/dl (8.5-10.1) 11/11/18 06:47 Albumin 3.6 gm/dl (3.4-5.0) 10/29/18 11:42 Urine Color Yellow 10/29/18 11:42 Urine Appearance Clear (Clear) 10/29/18 11:42 Urine pH 5.5 (4.5-7.5) 10/29/18 11:42 Ur Specific [place] <= 1.005 (1.000-1.030) 10/29/18 11:42 Urine Protein Negative (Negative) 10/29/18 11:42 Urine Glucose (UA) Negative (Negative) 10/29/18 11:42 Urine Ketones Negative (Negative) 10/29/18 11:42 Urine Blood Negative (Negative) 10/29/18 11:42 Urine Nitrite Negative (Negative) 10/29/18 11:42 Urine Bilirubin Negative (Negative) 10/29/18 11:42 Urine Urobilinogen Negative (Negative) 10/29/18 11:42 Ur Leukocyte Esterase Negative (Negative) 10/29/18 11:42 Blood Type O Positive 10/29/18 11:42 Antibody Screen NEGATIVE 10/29/18 11:42 Total Time Total Time Spent Total Time Spent (In Minutes): 20 Total Time Includes: Examination of the Patient, Discharge Planning and Me dication Reconciliation Discharge Plan Discharge Items Patient Disposition: Home - Home Health Services Reason For Visit: LEFT KNEE OSTEOARTHRITIS Discharge Diagnosis: left total knee replacement Condition: Good Discharge Goals: Decrease discomfort, Improve function and Increase independence Activity: Per 'Additional Instructions' section Lifting: Wait until after follow-up appointment Driving/Machine Use Comment: no driving until cleared by your surgeon Weightbearing: Left weightbearing Weightbearing Comment: WBAT with walker Non-emergency contact: Primary Care Provider and Surgeon Call non-emergency contact if: you have any medication questions, your temperature is above 101, your wound has increased redness and your wound pain has increased Follow-up/Referrals: Lola Long MD [Primary Care Provider] - Diet: Carb Consistent or DM2 Addtl Provider Instructions: ACTIVITY RECOMMENDATIONS: SELF CARE INSTRUCTIONS AFTER TOTAL KNEE REPLACEMENT A. You may need to continue a physical therapy program after discharge from the hospital. There are several options available to you. Your doctor will assist you in selecting the best one for you. 1. An out-patient facility 2 to 3 times a week for therapy or home therapy. 2. Continue working on all exercises taught to you in the hospital. Your goals should be to increase bending of your knee to 90 degrees and beyond and to fully straighten your knee. B. You may progress at your own pace from walking with a walker or crutches to a cane; then to no assistive devices. C. Make walking a part of your daily routine. Be up as much as comfortable with rest periods throughout the day. Rest with leg elevation is very important. Use the ice wrap frequently for the first 3-4 weeks. D. There are no restrictions on activities. You may ride in a car, shop, participate in head of history and all social activities. E. Wear the long elastic stockings (DEMARIO hose) 20 hours a day for 2 weeks after surgery. They can be removed several times a day for laundering and for a bath. F. You may shower, no tub baths until cleared by your doctor. SPECIAL CARE INSTRUCTIONS: VERY IMPORTANT TO READ AND REVIEW A. There are a few signs you need to watch for after you are home. Call [facility] if you notice any of the followin. Increased severe knee pain. Some pain is expected especially when you exercise. 2. Increased swelling in your leg or knee; pain or swelling of the calf muscle in either lower leg. 3. Any fluid drainage from the incision. 4. Shortness of breath or chest pain. B. Please call [facility] at if you have any concerns or questions about your operation or recovery. The doctor or his nurse will return your call promptly. C. You must take antibiotics before dental work, bladder, bowel or other surgery. Your doctor will provide you with a permanent care to carry describing this precaution. IMPORTANT: * REMEMBER TO TAKE ASPIRIN, 81 MG, TWICE DAILY FOR 4 WEEKS UNLESS OTHERWISE DIRECTED. THIS IS YOUR BLOOD THINNER. * HIGH RISK PATIENTS MAY BE PRESCRIBED A STRONGER BLOOD THINNER. THIS WILL BE PROVIDED AT DISCHARGE. * CALL IF INCREASED PAIN, REDNESS, DRAINAGE OR FEVER GREATER THAT 101. * WEAR DEMARIO HOSE 20 HOURS PER DAY FOR 2 WEEKS. * AJIT Dressing- This is a large suction dressing covering your incision. This will help pull any excess drainage from the wound and allow your incision to heal properly. You may shower with this if you can keep the unit outside of the shower. If any bleeding or leakage is noted please call your doctor's office. This will remain on your incision for 7 days and then should be removed. This can be done yourself or by the home nursing staff if applicable. The entire unit is disposable once removed. Once removed, keep incision clean and dry. If redness or drainage is noted, please call your surgeon. once ajit is removed, follow these instructions: DERMABOND Prineo- This is a mesh tape dressing that is covered with glue. It should remain in place until the incision is properly healed, usually 10-14 days. This dressing is designed to naturally slough off. You may trim the excess mesh tape as it peels off. Incision may be briefly wet in a shower. Dry immediately by blotting with a clean, dry towel. Do not bath or swim until instructed by your doctor. Do not scratch, rub, or pick at the dressing. Do not apply any topical ointments or lotions until dressing is completely removed and/or instructed by your doctor. There may be a small piece of suture material at one end of your incision. Do not pull or trim this. If it is bothersome or catching on clothing, you may cover it with a band-aid. IF INCISION IS LEAKING THROUGH DRESSING, CALL THE OFFICE . FOLLOW UP VISIT: If appointment is not already scheduled: Please call [facility] to make a follow-up appointment for 2 weeks after your surgery at . Prescriptions: New hydrocodone-acetaminophen [[place]] 5-325 mg Tablet 1 - 2 tab PO .q6-8 hours PRN (Reason: pain) Qty: 30 RF: 0 ferrous sulfate 325 mg (65 mg iron) Tablet,Delayed Release (Dr/Ec) 325 mg PO QAM 14 Days Qty: 14 RF: 0 Eliquis 5 mg Tablet 5 mg PO BID 26 Days Qty: 52 RF: 0 docusate sodium 100 mg Capsule 100 mg PO BID 10 Days Qty: 20 RF: 0 cefadroxil 500 mg capsule 500 mg PO BID 10 Days Qty: 20 RF: 0 Continued cyclobenzaprine 10 mg Tablet 2 tab PO TID PRN (Reason: Pain) RF: 0 atorvastatin 40 mg Tablet 40 mg PO HS RF: 0 citalopram 40 mg Tablet 60 mg PO QAM RF: 0 ergocalciferol (vitamin D2) 50,000 unit Capsule 50,000 unit PO WK RF: 0 cholecalciferol (vitamin D3) [Vitamin D3] 2,000 unit Tablet 2,000 unit PO QAM RF: 0 cyanocobalamin (vitamin B-12) 1,000 mcg/mL Kit 1,000 mcg SUBCUT MONTHLY RF: 0 furosemide [Lasix] 40 mg Tablet 40 mg PO QAM RF: 0 metoprolol succinate [Toprol XL] 50 mg Tablet Extended Release 24 Hr 50 mg PO QAM RF: 0 esomeprazole magnesium [Nexium] 40 mg Capsule,Delayed Release(Dr/Ec) 40 mg PO QAM RF: 0 pramipexole [Mirapex] 0.125 mg Tablet 2 tab PO HS RF: 0 montelukast [Singulair] 10 mg Tablet 10 mg PO QAM RF: 0 metformin 500 mg Tablet Extended Release 24 Hr 2 tab PO BID RF: 0 irbesartan 300 mg Tablet 300 mg PO QAM RF: 0 Lyrica 75 mg Capsule 75 mg PO UD RF: 0 Jardiance 10 mg Tablet 10 mg PO QAM RF: 0 Discontinued tramadol 50 mg Tablet 50 mg PO Q8H PRN (Reason: Pain) RF: 0 Slow Fe 142 mg (45 mg iron) Tablet Extended Release 142 mg PO QAM RF: 0 aspirin [Aspir-Low] 81 mg Tablet,Delayed Release (Dr/Ec) 81 mg PO QAM RF: 0 Stand-Alone Forms: [facility] Discharge Orders: Discharge Order (Routine); Ordered 11/11/18 Ordered By: Skip Stevens Admission Data Admit Date/Time: 11/09/18 12:13 Attending Provider: Dalton Reyes Admit Provider: Dalton Reyes Primary Care Provider: Lola Long Other Providers: Dalton Morales Service: Surgical Services Other Pending Studies at Discharge: No
[2018-11-11] MEDS ORDERED: PRAMIPEXOLE DIHYDROCHLO 0.5 MG TAB PO SCH ×2 (09:00→21:00)
[2018-11-11] MEDS ORDERED: METFORMIN HCL ER 500 MG TABCR PO SCH (09:00)
[2018-11-11] MEDS: APIXABAN 5 MG TABLET PO SCH (09:18)
[2018-11-11] MEDS: FERROUS SULFATE 325 MG TAB PO SCH (09:18)
[2018-11-11] MEDS: DOCUSATE SODIUM 100 MG CAP PO SCH (09:18)
[2018-11-11] MEDS: CITALOPRAM 40 MG TAB PO SCH (09:18)
[2018-11-11] MEDS: METOPROLOL SUCC 50MG EXT REL TAB PO SCH (09:20)
[2018-11-11] MEDS: MONTELUKAST SODIUM 10 MG TABLET PO SCH (09:20)
[2018-11-11] MEDS: PREGABALIN 75 MG CAP PO SCH (09:20)
[2018-11-11] MEDS: MULTIVITAMIN TAB PO SCH (09:20)
[2018-11-11] MEDS: CHOLECALCIFEROL 1,000 UNITS TAB PO SCH (09:21)
[2018-11-11] MEDS: INSULIN ASPART 100 UNITS/ML 3 ML PEN SC SCH ×2 (09:34→13:14)
[2018-11-11] MEDS ORDERED: HYDROCODONE/ACETAMOPHEN 5/325MG TAB PO PRN (12:20)
[2018-11-11] MEDS ORDERED: KETOROLAC TROMETHAMINE 15 MG/ML VIAL IM PRN (13:19)
[2018-11-11] MEDS ORDERED: SODIUM CHLORIDE 0.9% 1000ML 500 ML IV ONE (14:13)
--- NOTE | 2018-11-12 05:08 | Hospitalist Progress Note ---
Date of Service late entry for visit November 11, 2018 Assessment & Plan (1) Orthostasis: technically not orthostatic with respect to lying/sitting/standing BPs but HRs went up quickly with sitting / standing. due to symptoms elected to give NS bolus of 500cc this am. EKG obtained due to tachycardia -- NSR, no ST changes. Present on Admission?: No (2) Primary osteoarthritis of left knee: POD #2 s/p left TKR DVT proph, pain control, dispo - per ortho I spoke with the orthopedic PA relaying the pt's concerns that her pain control of the left knee was inadequate Defer adjustment of pain meds to them consider NSAID -- CrCl is acceptable for such (3) History of DVT (deep vein thrombosis): Provoked post-op during a prior surgery agree with eliquis 5mg BID for DVT proph at d/c (4) Heart disease: nonobstructive CAD cont BB, statin resume asa at earliest time possible (5) Diabetes: pharmacy managing control acceptable (6) HTN (hypertension): continue home meds controlled see "orthostasis" above (7) Depression: continue home meds no issues (8) Anxiety: continue home meds (9) RLS (restless legs syndrome): continue mirapex continue Fe supplementation as Fe def makes RLS much worse (10) Iron deficiency: history of such now with superimposed acute blood loss anemia repeat CBC today acceptable recommend ferrous sulfate 325mg BID at d/c x 3 months (11) Rash: oxycodone allergy? rash on face and arms nearly resolved (12) DVT prophylaxis: eliquis 5mg BID I relayed my concerns about her pain control to the primary orthopedic team as long as pain is relatively controlled and she does not have "shakiness" / weakness with ambulation (and orthostatics are ok) she could be a candidate for d/c later today Subjective pt with multiple complaints including severe pain of left knee despite use of norco, feeling shaky and weak when she worked with PT this am, and feeling a little dizzy with standing. rash on arms and face IS better today. passing flatus; no stool yet. eating ok without nausea/vomiting. no chest pain or dyspnea. Constitutional: no fever and no chills Respiratory: no cough and no dyspnea Cardiovascular: + palpitations; no chest pain Gastrointestinal: no abdominal pain Physical Exam Vital Signs (Past 24 Hours): Last Vital Signs Temp 37.1 C 11/11/18 16:16 Pulse 87 11/11/18 16:16 Resp 17 11/11/18 16:16 BP 156/87 H 11/11/18 16:16 Pulse Ox 98 11/11/18 16:16 Constitutional: well developed, well nourished and + obese; no acute distress ENMT: external ear and nose normal, oropharynx normal Respiratory: normal respiratory effort, lungs clear to auscultation Cardiovascular: Rate/Rhythm: regular rhythm and + tachycardic Heart Sounds: normal S1 and normal S2; no murmur Vessels: posterior tibial pulses present and dorsalis pedis pulses present; no JVD Extremities: + edema (minimal - left ankle) Gastrointestinal (Abdomen): normal bowel sounds, soft, nontender, no hepatosplenomegaly Musculoskeletal: left knee - moderate effusion, dressings in place, drain absent Skin: rash on face/arms nearly resolved Psychiatric: Orientation: alert and oriented x 3 Affect: + anxious affect Results & Data Laboratory Results Laboratory Results - last 24 hr 11/11/18 11/11/18 11/11/18 06:47 06:47 09:24 WBC 9.91 RBC 3.41 L Hgb 8.6 L Hct 27.3 L MCV 80.1 MCH 25.2 MCHC 31.5 L RDW Std Deviation 47.9 H RDW Coeff of Jana 16.4 H Plt Count 228 MPV 9.5 Sodium 136 Potassium 4.6 Chloride 109 H Carbon Dioxide 24 Anion Gap 3.0 BUN 23 H Creatinine 1.06 Est Cr Clr Drug Dosing 64.9 Est GFR ( Amer) 63.8 Est GFR (Non-Af Amer) 55.1 BUN/Creatinine Ratio 22.0 H Glucose 142 H POC Glucose 212 H Calcium 8.7 11/11/18 11/11/18 11:46 12:08 WBC RBC Hgb Hct MCV MCH MCHC RDW Std Deviation RDW Coeff of Jana Plt Count MPV Sodium Potassium Chloride Carbon Dioxide Anion Gap BUN Creatinine Est Cr Clr Drug Dosing Est GFR ( Amer) Est GFR (Non-Af Amer) BUN/Creatinine Ratio Glucose POC Glucose 162 H 146 H Calcium (1) Diabetes Diabetes mellitus type: type 2 Diabetes mellitus superintendent [employer] insulin use: without superintendent [employer] use Diabetes mellitus complication status: without complicat ion Qualified Code(s): E11.9 - Type 2 diabetes mellitus without complications (2) HTN (hypertension) Hypertension type: essential hypertension Qualified Code(s): I10 - Essential (primary) hypertension (3) Depression Depression Type: unspecified Qualified Code(s): F32.9 - Major depressive disorder, single episode, unspecified
[2018-11-15] MEDS ORDERED: ERGOCALCIFEROL 50,000 UNITS CAP PO SCH (09:00)
== END 2018-11-11 16:57 | disposition home health service (06) | DRG 470 ==
LOC: ASU 07:29 → 3E 12:13

== ENCOUNTER 2018-11-16 13:13 | Observation (INO) ==
[2018-11-16] MEDS ORDERED: ASPIRIN CHEW 324 MG PO STA (14:09)
[2018-11-16] MEDS ORDERED: SODIUM CHLORIDE 0.9% 1000ML 1,000 ML IV SCH (14:15)
[2018-11-16 14:17] LABS: Basophils # (auto) 0.04 K/uL (0-0.2); Basophils % (auto) 0.3 %; Eosinophils # (auto) 0.52 K/uL (0-0.5); Eosinophils % (auto) 4.5 %; Hematocrit (blood only) 30.1 % (37-47); Hemoglobin 9.7 g/dL (12.0-16.0); Immature Granulocytes # (auto) 0.03 K/uL (0.00-0.02); Immature Granulocytes % (auto) 0.3 %; Lymphocytes # (auto) 2.49 K/uL (1.2-3.4); Lymphocytes % (auto) 21.7 %; Mean Corpuscular Hgb Conc 32.2 g/dL (32-36); Mean Corpuscular Volume 80.3 fL (80-100); Mean Platelet Volume 9.7 fL (7.4-10.4); Monocytes # (auto) 0.92 K/uL (0.11-0.59); Neutrophils # (auto) 7.46 K/uL (1.4-6.5); Neutrophils % (auto) 65.2 %; Platelet Count 383 K/uL (130-400); RDW Standard Deviation 46.9 fL (36.4-46.3); Red Blood Count 3.75 M/uL (4.2-5.4); White Blood Count 11.46 K/uL (4.8-10.8)
[2018-11-16 14:26] LABS: Blood Urea Nitrogen 26 mg/dl (7-18); Calcium 9.9 mg/dl (8.5-10.1); Carbon Dioxide 24 mmol/L (21-32); Chloride 104 mmol/L (98-107); Creatinine Clr Calc Pharmacy 55.9 ml/min; Est GFR (African American) 53.8; Est GFR (Non-African American) 46.5; Glucose 162 mg/dl (70-99); Potassium 4.1 mmol/L (3.5-5.1); Sodium 136 mmol/L (136-145)
[2018-11-16 14:27] LABS: Partial Thromboplastin Time 27.1 Seconds (21.0-31.0); Prothrombin Time 10.4 Seconds (9.0-12.0)
[2018-11-16 14:30] LABS: Troponin I < 0.015 ng/ml (0-0.045)
--- NOTE | 2018-11-16 14:32 | XRay Report ---
XR chest 1V portable CLINICAL HISTORY: Atypical chest pain COMPARISON STUDY: April 2018 FINDINGS: The cardiac and mediastinal contours are normal. There is no evidence of focal pulmonary co nsolidation. There is no evidence of failure. No pleural effusions are visualized.[ There are postsur gical changes of prior thoracolumbar spinal rodding. IMPRESSION: No active disease in the chest. Electronically signed by: Santana Gunderson M.D. 11/16/2018 2:30 PM
--- NOTE | 2018-11-16 15:24 | Ultrasound Report ---
US venous doppler LE BI CLINICAL HISTORY: Bilateral leg swelling COMPARISON STUDY: April 09, 2018 FINDINGS: Real-time and color flow Doppler imaging were performed. Flow was seen within the femoral, popliteal and calf veins with no intraluminal thrombus demonstrated. The saphenous vein is patent. IMPRESSION: No evidence of lower extremity DVT. Electronically signed by: Santana Gunderson M.D. 11/16/2018 3:23 PM
[2018-11-16] MEDS ORDERED: OPTIRAY 320 125ml IV PRN (16:06)
[2018-11-16] MEDS ORDERED: HYDROCODONE/ACETAMOPHEN 5/325MG TAB PO STA (16:16)
--- NOTE | 2018-11-16 16:20 | CT Scan Report ---
CT ANGIOGRAM OF THE CHEST CLINICAL HISTORY: Atypical chest pain. COMPARISON STUDY: Chest x-ray dated 11/16/2018. Chest CT scan dated 04/09/2018. TECHNIQUE: Following the IV administration of 119 cc of Optiray 320, CT angiogram of the chest was pe rformed from the upper abdomen to the thoracic inlet utilizing the pulmonary embolus protocol. Images are reviewed in the axial, sagittal, and coronal planes. 3-D MIPS images are created and assessed. I V contrast was administered without complication. A dose lowering technique was utilized adhering to the principles of ALARA. CT DOSE: 460.52 mGy.cm FINDINGS: Thyroid: Imaged portions of the thyroid gland are normal in size and attenuation. Thoracic aorta: The thoracic aorta is normal in caliber and demonstrates standard 3-vessel arch anato my. No dissection is seen. Pulmonary vasculature: The pulmonary trunk is normal in caliber. There are no filling defects identif ied in main, lobar, or segmental pulmonary branches to suggest pulmonary embolus. Heart: The heart is normal in size and without pericardial effusion. The coronary arteries are densel y calcified. Lungs and pleural spaces: There are scattered calcified granulomas. The lungs and pleural spaces are otherwise clear. The lung bases were excluded due to angiographic phase technique. The trachea and ce ntral airways are clear. Mediastinum: There is no mediastinal lymphadenopathy. Carly: Clear. Axillae: There is no axillary lymphadenopathy. Upper abdomen: The liver appears steatotic. Skeletal structures: Postoperative change is partially imaged at the thoracolumbar junction. No lytic or blastic bony lesions are seen. IMPRESSION: 1. There is no evidence of pulmonary embolus in the main, lobar, or segmental pulmonary arteries. 2. There is no airspace consolidation or pleural effusion. 3. The coronary arteries are densely calcified. Consider nonemergent cardiology follow-up. Electronically signed by: Jhonny Villalobos M.D. 11/16/2018 4:18 PM
[2018-11-16] MEDS ORDERED: NON-FORMULARY MEDICATION (Cyanocobalamin (Vitamin B-12) 1,000 MCG) SQ SCH (18:58)
[2018-11-16] MEDS ORDERED: ONDANSETRON INJ 2 MG/ML 2 ML VIAL IV PRN (18:58)
[2018-11-16] MEDS ORDERED: ACETAMINOPHEN 325 MG TAB PO PRN (18:58)
[2018-11-16] MEDS ORDERED: MAGNESIUM HYDROXIDE SUSP 30 ML UDC PO PRN (18:58)
[2018-11-16] MEDS ORDERED: ALUMINUM/MAGNESIUM SUSP 30 ML UDC PO PRN (18:58)
[2018-11-16] MEDS ORDERED: POLYETHYLENE (MIRALAX) 17 GM PACK PO PRN (18:58)
--- NOTE | 2018-11-16 20:32 | History & Physical Report ---
Date of Service November 16, 2018 Assessment & Plan (1) Weakness: Likely multifactorial. Probably degree of element of deconditioning related to her recent surgery, but most acutely she seems to be appearing like someone who is low on volume. Seems especially true given her tachycardia, her elevated creatinine, her hemoglobin that significantly higher than discharged just a few days ago (suggesting hemoconcentration), and the frequency at which people appear to be volume depleted after knee replacement surgery. -There is certainly concern with her tachycardia as to whether or not she could have some underlying arrhythmia, but sinus tachycardia with ectopy could certainly appear this way as well. That said arrhythmia needs to be ruled out see below -There is also certainly concern as to whether or not she has a degree of coronary artery disease that is manifest by her fatigue and weakness that while not in acute angina type of situation is a bit of an undercurrent driving some of her overall weakness and poor well-being. 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 -There is almost certainly an element of deconditioning at play with this as well. (3) Heart palpitations: See above, certainly tachycardia from volume depletion with some ectopy would explain her findings earlier today, but no arrhythmia needs to be the diagnosis of exclusion. We will follow her on telemetry, and if telemetry has no yield, we will then set her up for an event monitor after discharge. (4) History of DVT (deep vein thrombosis): Continue anticoagulation (5) Iron deficiency: Continue home meds, outpatient follow-up (6) RLS (restless legs syndrome): Continue home meds, outpatient follow-up (7) HTN (hypertension): Hold Lasix and losartan for now (8) Fatigue: See above, biggest concerns would be how much it relates to coronary disease and how much relates to deconditioning. Acutely certainly volume depletion will play a role as well (9) Anxiety: (10) DVT prophylaxis: Continue home meds (11) Depression: Continue home meds (12) Diabetes: Follow glucoses continue home meds, review if there is been a recent A1c (13) Asthma: Asymptomatic, lungs are clear (14) Discharge planning issues: Goal will be home with outpatient therapy once all of above sorted out. History of Present Illness Chief Complaint: weakness Primary Care Provider: Lola Long MD Very pleasant 63-year-old female just discharged a few days ago after knee surgery. She notes she had been feeling weak and shaky after the surgery, gradually improved to where she felt she could go home. But at home things were going fairly badly. She continued to feel very weak she had palpitations and home therapy felt that her heart sounded irregular and fast calculating a pulse of about 120 and noting it sounded irregular. She felt like everything was excess exertion, feeling difficulty going up and down stairs or showering or regular activities of daily living feeling like a massive amount of exertion. Because of all of this she was not feeling well, and this combined with her heart rate of 120 while at rest with therapy saying it sounded irregular led to her coming to the ER. She also notes a history of some degree of coronary disease on cath done in [place] about 2 years ago. She notes a degree of easy fatigability and easy dyspnea on exertion, but she notes with her rather extensive and heavily recent surgical history she has a hard time telling what could possibly be coronary disease versus what is simply deconditioning and weakness from everything her body has gone through. Allergies Allergy/AdvReac Type Severity Reaction Status Date / Time adhesive Allergy Mild Rash Verified 11/09/18 07:55 morphine Allergy Mild Rash Verified 11/09/18 07:55 Sulfa (Sulfonamide Allergy Mild Rash Verified 11/09/18 07:55 Antibiotics) prochlorperazine AdvReac Intermediate MUSCHLE Verified 11/09/18 07:55 [From Compazine] SPASMS ciprofloxacin [From Cipro] AdvReac Mild GI SYMPTOMS Verified 11/09/18 07:55 clarithromycin [From Biaxin] AdvReac Mild GI SYMPTOMS Verified 11/09/18 07:55 clindamycin AdvReac Mild GI SYMPTOMS Verified 11/09/18 07:55 levofloxacin [From Levaquin] AdvReac Mild GI SYMPTOMS Verified 11/09/18 07:55 moxifloxacin [From Avelox] AdvReac Mild N/V Verified 11/09/18 07:55 Penicillins AdvReac Mild GI SYMPTOMS Verified 11/09/18 07:55 Home Medications Home Medications Medication Instructions Recorded Confirmed Type Jardiance 10 mg PO QAM 10/28/18 11/16/18 History Lyrica 75 mg PO UD 10/28/18 11/16/18 History atorvastatin 40 mg PO HS 10/28/18 11/16/18 History cholecalciferol (vitamin D3) 2,000 unit PO QAM 10/28/18 11/16/18 History [Vitamin D3] citalopram 60 mg PO QAM 10/28/18 11/16/18 History cyanocobalamin (vitamin B-12) 1,000 mcg SUBCUT MONTHLY 10/28/18 11/16/18 History cyclobenzaprine 2 tab PO TID PRN 10/28/18 11/16/18 History ergocalciferol (vitamin D2) 50,000 unit PO WK 10/28/18 11/16/18 History esomeprazole magnesium [Nexium] 40 mg PO QAM 10/28/18 11/16/18 History furosemide [Lasix] 40 mg PO QAM 10/28/18 11/16/18 History irbesartan 300 mg PO QAM 10/28/18 11/16/18 History metformin 2 tab PO BID 10/28/18 11/16/18 History metoprolol succinate [Toprol XL] 50 mg PO QAM 10/28/18 11/16/18 History montelukast [Singulair] 10 mg PO QAM 10/28/18 11/16/18 History pramipexole [Mirapex] 2 tab PO HS 10/28/18 11/16/18 History apixaban [Eliquis] 5 mg PO BID 26 Days #52 tab 11/11/18 11/16/18 Rx cefadroxil 500 mg PO BID 10 Days #20 cap 11/11/18 11/16/18 Rx docusate sodium 100 mg PO BID 10 Days #20 cap 11/11/18 11/16/18 Rx ferrous sulfate 325 mg PO QAM 14 Days #14 tab 11/11/18 11/16/18 Rx hydrocodone-acetaminophen [[place]] 1 - 2 tab PO .q6-8 hours PRN #30 11/11/18 11/16/18 Rx tab Past Med/Surg History Medical History Anemia Anxiety Chronic kidney disease STAGE ? Deep vein thrombosis 04/2018 S/P ACHILLES TENDON REPAIR. Discharged from ED on Eliquis. Degenerative disc disease Depression Diabetes mellitus, type 2 GERD (gastroesophageal reflux disease) Headache Hematoma Spinal hematoma after lumbar d+f 2 YEARS AGO, required evacuation. Hyperlipidemia Hypertension Irregular heart beat NSR on EKG 04/2018. Per pt, PCP noted irregularity and is to have echo 4/2. Osteoarthritis Peripheral neuropathy BLE Restless leg syndrome Thyroid nodule BIOPSY BENIGN Surgical History Achilles tendon tear RT/LEFT REPAIRED Fusion of spine X 2 (HEMATOMA EVACUATED) H/O hand surgery RT TENDON History of anesthesia reaction 3-4 YEARS AGO AFTER TKA REVISION (BECAME UNRESPONSIVE AFTER RECOVERY) History of cardiac cath 2 TOTAL (LAST ONE 2017) NO STENTS PLACED History of carpal tunnel release LEFT History of cataract surgery RT/LEFT WITH IMPLANTS History of section X 1 History of cholecystectomy History of colonoscopy History of endoscopic sinus surgery History of esophagogastroduodenoscopy (EGD) History of repair of rotator cuff RT History of tooth extraction History of total abdominal hysterectomy and bilateral salpingo-oophorectomy History of total knee replacement RT AND REVISION Family History Grandfather (Maternal) Family history of diabetes mellitus Social History Preferred Language: Sinhala Communication Ability: Effective Learning And Development Assistant Required: No Beliefs That Will Affect Care: None marital status: Current Living Situation: Spouse Other Information That Helps Us Care for You: No Feels Safe at Home: No Safety Concerns: Feels Safe At This Time Smoking Status: Never smoker Hx Alcohol Use: No Hx Substance Use: No Review of Systems All systems reviewed & are unremarkable except as noted in HPI & below Physical Exam Vital Signs (Past 24 Hours): Last Vital Signs Temp 36.7 C 11/16/18 18:58 Pulse 90 11/16/18 18:58 Resp 20 11/16/18 18:58 BP 149/82 H 11/16/18 18:58 Pulse Ox 99 11/16/18 18:58 Physical Exam: In general she is awake alert oriented x3, pleasant no distress HEENT normal cephalic atraumatic mucous members are moist Cardio is regular without any rubs murmurs gallops Lungs clear to auscultation bilaterally no rales rhonchi or wheeze with good effort, no accessory muscle use Abdomen is soft nondistended nontender no masses or organomegaly Extremities show no cyanosis or clubbing about trace bilateral lower extremity edema no erythema Skin shows no rashes no pallor or icterus, her left knee incision is dressed and everything appears clean/dry/intact overall. There is no surrounding erythema Neuro shows cranial nerves II through XII are grossly intact gross motor and sensory are intact Musculoskeletal exam shows no gross lesions, the knee appears intact as well. Mental status shows good recent and remote recall normal mood and affect good judgment and insight Results & Data Laboratory Results Diagnostics noted. EKG with some nonspecific T wave changes mostly laterally (1) HTN (hypertension) Hypertension type: essential hypertension Qualified Code(s): I10 - Essential (primary) hypertension (2) Depression Depression Type: unspecified Qualified Code(s): F32.9 - Major depressive disorder, single episode, unspecified (3) Diabetes Diabetes mellitus type: type 2 Diabetes mellitus fci insulin use: without fci use Diabetes mellitus complication status: without complication Qualified Code(s): E11.9 - Type 2 diabetes mellitus without complications
[2018-11-16] MEDS ORDERED: PREGABALIN 150 MG CAP PO SCH (21:00)
[2018-11-16] MEDS ORDERED: PRAMIPEXOLE DIHYDROCHLO 0.25 MG TAB PO SCH (21:00)
[2018-11-16] MEDS ORDERED: ATORVASTATIN 40 MG TAB PO SCH (21:00)
--- NOTE | 2018-11-16 21:12 | Emergency Department Note ---
Entered by Honorio Mohan acting as a scribe for Gibson Issa History of Present Illness General Chief complaint: Tachycardia Stated complaint: TACHYCARDIA,IRREGULARY HEART BEAT,COLD SWEAT Time Seen by Provider: 11/16/18 14:02 Source: patient History of Present Illness Onset (ago): week(s) (symptoms since one week ago) Location: chest (heart) Pain Consistency: + intermittent (diaphoresis and palpitations) and + other (persistent weakness) Quality: + other (tachycardia/palpitations) Associated symptoms: + shortness of breath (with climbing stairs) Treatments prior to arrival: other (knee surgery one week ago) The patient is a 63 year old female who presents to the Emergency Room with complaints of tachycardia. The patient reports that she had a surgery on the left knee one week ago performed by Dr. Reyes, and prior to discharge she was cleared by her doctor with an unremarkable EKG. Since that time she reports persistent weakness and loss of appetite, as well as intermittent palpitations and diaphoresis. Prior to arrival her heart rate was 120 bpm at rest measured by her physical therapist. She also reports temporary shortness of breath with climbing stairs today. She notes some left calf/thigh pain but states that the knee itself is doing well. She denies chest pain or fevers. She states that she is on Eliquis and has not missed any doses. Home Medications Home Medications Medication Instructions Recorded Confirmed Type Jardiance 10 mg PO QAM 10/28/18 11/16/18 History Lyrica 75 mg PO UD 10/28/18 11/16/18 History atorvastatin 40 mg PO HS 10/28/18 11/16/18 History cholecalciferol (vitamin D3) 2,000 unit PO QAM 10/28/18 11/16/18 History [Vitamin D3] citalopram 60 mg PO QAM 10/28/18 11/16/18 History cyanocobalamin (vitamin B-12) 1,000 mcg SUBCUT MONTHLY 10/28/18 11/16/18 History cyclobenzaprine 2 tab PO TID PRN 10/28/18 11/16/18 History ergocalciferol (vitamin D2) 50,000 unit PO WK 10/28/18 11/16/18 History esomeprazole magnesium [Nexium] 40 mg PO QAM 10/28/18 11/16/18 History furosemide [Lasix] 40 mg PO QAM 10/28/18 11/16/18 History irbesartan 300 mg PO QAM 10/28/18 11/16/18 History metformin 2 tab PO BID 10/28/18 11/16/18 History metoprolol succinate [Toprol XL] 50 mg PO QAM 10/28/18 11/16/18 History montelukast [Singulair] 10 mg PO QAM 10/28/18 11/16/18 History pramipexole [Mirapex] 2 tab PO HS 10/28/18 11/16/18 History apixaban [Eliquis] 5 mg PO BID 26 Days #52 tab 11/11/18 11/16/18 Rx cefadroxil 500 mg PO BID 10 Days #20 cap 11/11/18 11/16/18 Rx docusate sodium 100 mg PO BID 10 Days #20 cap 11/11/18 11/16/18 Rx ferrous sulfate 325 mg PO QAM 14 Days #14 tab 11/11/18 11/16/18 Rx hydrocodone-acetaminophen [Afton] 1 - 2 tab PO .q6-8 hours PRN #30 11/11/18 11/16/18 Rx tab Allergies Allergy/AdvReac Type Severity Reaction Status Date / Time adhesive Allergy Mild Rash Verified 11/09/18 07:55 morphine Allergy Mild Rash Verified 11/09/18 07:55 Sulfa (Sulfonamide Allergy Mild Rash Verified 11/09/18 07:55 Antibiotics) prochlorperazine AdvReac Intermediate MUSCHLE Verified 11/09/18 07:55 [From Compazine] SPASMS ciprofloxacin [From Cipro] AdvReac Mild GI SYMPTOMS Verified 11/09/18 07:55 clarithromycin [From Biaxin] AdvReac Mild GI SYMPTOMS Verified 11/09/18 07:55 clindamycin AdvReac Mild GI SYMPTOMS Verified 11/09/18 07:55 levofloxacin [From Levaquin] AdvReac Mild GI SYMPTOMS Verified 11/09/18 07:55 moxifloxacin [From Avelox] AdvReac Mild N/V Verified 11/09/18 07:55 Penicillins AdvReac Mild GI SYMPTOMS Verified 11/09/18 07:55 Past Med/Surg History Medical History Anemia Anxiety Chronic kidney disease STAGE ? Deep vein thrombosis 04/2018 S/P ACHILLES TENDON REPAIR. Discharged from ED on Eliquis. Degenerative disc disease Depression Diabetes mellitus, type 2 GERD (gastroesophageal reflux disease) Headache Hematoma Spinal hematoma after lumbar d+f 2 YEARS AGO, required evacuation. Hyperlipidemia Hypertension Irregular heart beat NSR on EKG 04/2018. Per pt, PCP noted irregularity and is to have echo 4/2. Osteoarthritis Peripheral neuropathy BLE Restless leg syndrome Thyroid nodule BIOPSY BENIGN Surgical History Achilles tendon tear RT/LEFT REPAIRED Fusion of spine X 2 (HEMATOMA EVACUATED) H/O hand surgery RT TENDON History of anesthesia reaction 3-4 YEARS AGO AFTER TKA REVISION (BECAME UNRESPONSIVE AFTER RECOVERY) History of cardiac cath 2 TOTAL (LAST ONE 2017) NO STENTS PLACED History of carpal tunnel release LEFT History of cataract surgery RT/LEFT WITH IMPLANTS History of section X 1 History of cholecystectomy History of colonoscopy History of endoscopic sinus surgery History of esophagogastroduodenoscopy (EGD) History of repair of rotator cuff RT History of tooth extraction History of total abdominal hysterectomy and bilateral salpingo-oophorectomy History of total knee replacement RT AND REVISION Family History Grandfather (Maternal) Family history of diabetes mellitus Social History Preferred Language: Bruneian Communication Ability: Effective Insurance Claims Processor Required: No Beliefs That Will Affect Care: None marital status: Current Living Situation: Spouse Other Information That Helps Us Care for You: No Feels Safe at Home: No Safety Concerns: Feels Safe At This Time Smoking Status: Never smoker Hx Alcohol Use: No Hx Substance Use: No Review of Systems See HPI for pertinent positives & negatives. and A total of 10 systems reviewed and were otherwise negative Physical Exam Vital Signs Vital Signs - 24 hr 11/16/18 13:21 11/16/18 13:50 11/16/18 14:10 Temperature 37 C Temperature Source Oral Oral Sepsis Recent Fever Within 48 Hours No Sepsis New/Unexplained Change in Mental Status No Sepsis Action Taken by Nursing No Action Required Pulse Rate 115 H Pulse Rate [Apical] Pulse Rhythm [Apical] Pulse Strength [Apical] Respiratory Rate 18 Respiratory Effort / Characteristics Non-Labored Spontaneous Respiratory Depth Normal Respiratory Pattern Regular Blood Pressure 127/76 Blood Pressure [Left Arm] Blood Pressure Mean 93 Blood Pressure Mean [Left Arm] Blood Pressure Position Sitting Blood Pressure Position [Left Arm] Pulse Oximetry 98 99 99 Oxygen Delivery Method Room Air Room Air Room Air 11/16/18 16:13 11/16/18 18:28 11/16/18 18:58 Temperature 36.7 C Temperature Source Oral Sepsis Recent Fever Within 48 Hours Sepsis New/Unexplained Change in Mental Status Sepsis Action Taken by Nursing Pulse Rate 90 Pulse Rate [Apical] 93 H 90 Pulse Rhythm [Apical] Regular Regular Pulse Strength [Apical] Normal Normal Respiratory Rate 19 17 20 Respiratory Effort / Characteristics Non-Labored Spontaneous Non-Labored Spontaneous Respiratory Depth Normal Normal Respiratory Pattern Regular Regular Blood Pressure 133/81 Blood Pressure [Left Arm] 134/82 149/82 H Blood Pressure Mean Blood Pressure Mean [Left Arm] 99 104 Blood Pressure Position Blood Pressure Position [Left Arm] Sitting Pulse Oximetry 100 95 99 Oxygen Delivery Method Room Air Room Air Room Air GENERAL: She is oriented to person, place, and time. She appears well-developed and well-nourished. She does not appear distressed. HENT: Exam performed. Head: Normocephalic and atraumatic. Right Ear: External ear normal. No mastoid tenderness. Left Ear: External ear normal. No mastoid tenderness. Mouth/Throat: The oropharynx is clear and moist. No trismus in the jaw. No de ntal abscesses or uvula swelling. No oropharyngeal exudate or tonsillar abscesses. EYES: Conjunctivae and EOM are normal. Pupils are equal, round, and reactive to light. Right eye exhibits no discharge. Left eye exhibits no discharge. No scleral icterus. NECK: Normal range of motion. Neck supple. No JVD present. No spinous process tenderness present. No carotid bruit present. No rigidity. No tracheal deviation and normal range of motion present. No Brudzinski's sign and no Kernig's sign noted. CV: Tachycardic rate, regular rhythm, normal heart sounds and intact distal pulses. There is no peripheral edema. Palpable radial pulses bue. PULM/CHEST: Effort normal and breath sounds normal. No respiratory distress. No stridor. She has no wheezes. She has no rales. Chest Wall: She exhibits no tenderness. ABD: The abdomen is soft. Bowel sounds are normal. She has no distension. No mass is present. There is no tenderness. There is no rebound, no guarding, no Hebert's sign and no tenderness at McBurney's point. Rovsig negative. MUSC/SKEL: Normal range of motion. Pain on palpation of the left calf. Wound dressing on the left anterior knee. There is no peripheral edema or deformity. LYMPH: No cervical adenopathy. NEURO: She is alert and oriented to person, place, and time. She has normal strength. No cranial nerve deficit or sensory deficit. Coordination and gait normal. GCS eye subscore is 4. GCS verbal subscore is 5. GCS motor subscore is 6. cerbellar tests wnl. SKIN: Skin is warm and dry. She is not diaphoretic. PSYCH: She has a normal mood and affect. Her behavior is normal. Judgment and thought content normal. Course 1404: The patient was evaluated in room C4, and a complete history and physical examination were performed. 1708: Vital signs stable. Labs and imaging within normal limits. CT of the chest does not show PE. Does show significant coronary calcifications. Given the patient's exertional dyspnea and CTA findings, the patient was offered inpatient observation for rule out ACS. She states she prefers to the inpatient observation for rule out ACS and to have cardiology evaluation and possible stress test in the morning. I consulted Dr. Médnez [facility] Hospitalist. The patient will be reevaluated for hospitalization. Administered Medications Discontinued Medications Hydrocodone Bitart/Acetaminophen (Afton 5/325) 1 tab PO NOW STA Stop: 11/16/18 16:17 Last Admin: 11/16/18 16:20 Dose: 1 tab Documented by: [id number] Aspirin (Aspirin) 324 mg PO NOW STA Stop: 11/16/18 14:10 Last Admin: 11/16/18 14:40 Dose: 324 mg Documented by: [id number] Sodium Chloride (Nss 1000ml) 1,000 mls @ 999 mls/hr IV .Q1H1M MARIJA Stop: 11/16/18 15:15 Last Infusion: 11/16/18 15:41 Dose: 0 mls/hr Documented by: [id number] Admin: 11/16/18 14:40 Dose: 999 mls/hr Documented by: [id number] Ioversol (Optiray 320 125ml) 119 ml IV ONCE PRN PRN Reason: Interaction Checking Stop: 11/20/18 16:05 Last Admin: 11/16/18 16:06 Dose: 119 ml Documented by: [id number] Medical Decision Making Medical Records Attestation: I reviewed the patient's medical records. Home Medications Current Medication List: was personally reviewed by me Laboratory Data Attestation: I reviewed the patient's lab results. Result diagrams: 11/16/18 13:31 11/16/18 13:31 Lab Results 11/16/18 11/16/18 11/16/18 Range/Units 13:31 13:31 13:31 WBC 11.46 H (4.8-10.8) K/uL RBC 3.75 L (4.2-5.4) M/uL Hgb 9.7 L (12.0-16.0) g/dL Hct 30.1 L (37-47) % MCV 80.3 (80-100) fL MCH 25.9 (25-34) pg MCHC 32.2 (32-36) g/dL RDW Std Deviation 46.9 H (36.4-46.3) fL RDW Coeff of Jana 16.0 H (11.5-14.5) % Plt Count 383 (130-400) K/uL MPV 9.7 (7.4-10.4) fL Immature Gran % (Auto) 0.3 % Neut % (Auto) 65.2 % Lymph % (Auto) 21.7 % [place] % (Auto) 8.0 % Eos % (Auto) 4.5 % Baso % (Auto) 0.3 % Immature Gran # (Auto) 0.03 H (0.00-0.02) K/uL Neut # (Auto) 7.46 H (1.4-6.5) K/uL Lymph # (Auto) 2.49 (1.2-3.4) K/uL [place] # (Auto) 0.92 H (0.11-0.59) K/uL Eos # (Auto) 0.52 H (0-0.5) K/uL Baso # (Auto) 0.04 (0-0.2) K/uL PT 10.4 (9.0-12.0) Seconds INR 1.0 (0.9-1.1) APTT 27.1 (21.0-31.0) Seconds PTT Ratio 1.0 Sodium 136 (136-145) mmol/L Potassium 4.1 (3.5-5.1) mmol/L Chloride 104 (98-107) mmol/L Carbon Dioxide 24 (21-32) mmol/L Anion Gap 8.0 (3-11) BUN 26 H (7-18) mg/dl Creatinine 1.22 H (0.6-1.2) mg/dl Est Cr Clr Drug Dosing 55.9 ml/min Est GFR ( Amer) 53.8 Est GFR (Non-Af Amer) 46.5 BUN/Creatinine Ratio 21.0 H (10-20) Glucose 162 H (70-99) mg/dl POC Glucose (70-99) Calcium 9.9 (8.5-10.1) mg/dl Troponin I < 0.015 (0-0.045) ng/ml 11/16/18 11/16/18 Range/Units 19:24 20:24 WBC (4.8-10.8) K/uL RBC (4.2-5.4) M/uL Hgb (12.0-16.0) g/dL Hct (37-47) % MCV (80-100) fL MCH (25-34) pg MCHC (32-36) g/dL RDW Std Deviation (36.4-46.3) fL RDW Coeff of Jana (11.5-14.5) % Plt Count (130-400) K/uL MPV (7.4-10.4) fL Immature Gran % (Auto) % Neut % (Auto) % Lymph % (Auto) % [place] % (Auto) % Eos % (Auto) % Baso % (Auto) % Immature Gran # (Auto) (0.00-0.02) K/uL Neut # (Auto) (1.4-6.5) K/uL Lymph # (Auto) (1.2-3.4) K/uL [place] # (Auto) (0.11-0.59) K/uL Eos # (Auto) (0-0.5) K/uL Baso # (Auto) (0-0.2) K/uL PT (9.0-12.0) Seconds INR (0.9-1.1) APTT (21.0-31.0) Seconds PTT Ratio Sodium (136-145) mmol/L Potassium (3.5-5.1) mmol/L Chloride (98-107) mmol/L Carbon Dioxide (21-32) mmol/L Anion Gap (3-11) BUN (7-18) mg/dl Creatinine (0.6-1.2) mg/dl Est Cr Clr Drug Dosing ml/min Est GFR ( Amer) Est GFR (Non-Af Amer) BUN/Creatinine Ratio (10-20) Glucose (70-99) mg/dl POC Glucose 144 H (70-99) Calcium (8.5-10.1) mg/dl Troponin I < 0.015 (0-0.045) ng/ml Imaging Data Radiologist's Impression: Radiology results as stated below per my review and the radiologist's interpretation: CT ANGIOGRAM OF THE CHEST CLINICAL HISTORY: Atypical chest pain. COMPARISON STUDY: Chest x-ray dated 11/16/2018. Chest CT scan dated 04/09/2018. TECHNIQUE: Following the IV administration of 119 cc of Optiray 320, CT angiogra m of the chest was performed from the upper abdomen to the thoracic inlet utilizing the pulmonary embolus protocol. Images are reviewed in the axial, sagittal, and coronal planes. 3-D MIPS images are created and assessed. IV contrast was administered without complication. A dose lowering technique was utilized adhering to the principles of ALARA. CT DOSE: 460.52 mGy.cm FINDINGS: Thyroid: Imaged portions of the thyroid gland are normal in size and attenuation. Thoracic aorta: The thoracic aorta is normal in caliber and demonstrates standard 3-vessel arch anatomy. No dissection is seen. Pulmonary vasculature: The pulmonary trunk is normal in caliber. There are no filling defects identified in main, lobar, or segmental pulmonary branches to suggest pulmonary embolus. Heart: The heart is normal in size and without pericardial effusion. The coronary arteries are densely calcified. Lungs and pleural spaces: There are scattered calcified granulomas. The lungs and pleural spaces are otherwise clear. The lung bases were excluded due to angiographic phase technique. The trachea and central airways are clear. Mediastinum: There is no mediastinal lymphadenopathy. Carly: Clear. Axillae: There is no axillary lymphadenopathy. Upper abdomen: The liver appears steatotic. Skeletal structures: Postoperative change is partially imaged at the thoracolumbar junction. No lytic or blastic bony lesions are seen. IMPRESSION: 1. There is no evidence of pulmonary embolus in the main, lobar, or segmental pulmonary arteries. 2. There is no airspace consolidation or pleural effusion. 3. The coronary arteries are densely calcified. Consider nonemergent cardiology follow-up. Electronically signed by: Jhonny Villalobos M.D. 11/16/2018 4:18 PM XR chest 1V portable CLINICAL HISTORY: Atypical chest pain COMPARISON STUDY: April 2018 FINDINGS: The cardiac and mediastinal contours are normal. There is no evidence of focal pulmonary consolidation. There is no evidence of failure. No pleural effusions are visualized.[ There are postsurgical changes of prior thoracolumbar spinal rodding. IMPRESSION: No active disease in the chest. Electronically signed by: Santana Gunderson M.D. 11/16/2018 2:30 PM US venous doppler LE BI CLINICAL HISTORY: Bilateral leg swelling COMPARISON STUDY: April 09, 2018 FINDINGS: Real-time and color flow Doppler imaging were performed. Flow was seen within the femoral, popliteal and calf veins with no intraluminal thrombus demonstrated. The saphenous vein is patent. IMPRESSION: No evidence of lower extremity DVT. Electronically signed by: Santana Gunderson M.D. 11/16/2018 3:23 PM ECG Data Attestation: I personally reviewed and interpreted this ECG as follows: Indication: tachycardia Rate (beats per minute): 108 Rhythm: sinus rhythm Findings: + other (CA, QRS and QTc intervals within normal limits); no ST depression and no ST elevation Blood Pressure Blood Pressure Findings: Normal blood pressure Blood Pressure Disposition: did not require urgent referral MDM Narrative Vital signs stable. Labs and imaging within normal limits. CT of the chest does not show PE. Does show significant coronary calcifications. Given the patient's exertional dyspnea and CTA findings, the patient was offered inpatient observation for rule out ACS. She states she prefers to the inpatient observation for rule out ACS and to have cardiology evaluation and possible stress test in the morning. I consulted Dr. Méndez [facility] Hospitalist. The patient will be reevaluated for hospitalization. Impression & Plan Heart palpitations, Dyspnea on exertion Discharge Plan Visit Data *Final* Discharge Date/Time: 11/16/18 18:28 Chief Complaint: Tachycardia Stated Complaint: TACHYCARDIA,IRREGULARY HEART BEAT,COLD SWEAT ED Provider: Gibson Issa Discharge Problem: Heart palpitations, Dyspnea on exertion Patient Disposition: Being Evaluated by Hospitalist Discharge Instructions Interventions: ED Discharge Assessment Last Done: 11/16/18 18:28 The scribe's documentation has been prepared under my direction and personally reviewed by me in its entirety. I confirm that the note above accurately r eflects all work, treatment, procedures, and medical decision making performed by me.
[2018-11-16] MEDS: SODIUM CHLORIDE 0.9% 1000ML 1,000 ML IV SCH ×6 (21:38→23:06)
[2018-11-16] MEDS: SODIUM CHLOR 0.45% + 20MEQ KCL 20 MEQ/1,000 ML BAG IV SCH (21:38)
[2018-11-16] MEDS: INSULIN ASPART 100 UNITS/ML 3 ML PEN SC SCH (21:39)
[2018-11-16] MEDS: DOCUSATE SODIUM 100 MG CAP PO SCH (21:41)
[2018-11-16] MEDS: APIXABAN 5 MG TABLET PO SCH (21:43)
[2018-11-16] MEDS: CYCLOBENZAPRINE HCL 10 MG TAB PO PRN (21:43)
[2018-11-16] MEDS: HYDROCODONE/ACETAMOPHEN 5/325MG TAB PO PRN (23:13)
[2018-11-17] MEDS: SODIUM CHLOR 0.45% + 20MEQ KCL 20 MEQ/1,000 ML BAG IV SCH (05:10)
[2018-11-17] MEDS: HYDROCODONE/ACETAMOPHEN 5/325MG TAB PO PRN ×2 (05:10→11:10)
[2018-11-17 06:41] LABS: Basophils # (auto) 0.04 K/uL (0-0.2); Basophils % (auto) 0.4 %; Eosinophils % (auto) 5.6 %; Hematocrit (blood only) 27.2 % (37-47); Hemoglobin 8.4 g/dL (12.0-16.0); Immature Granulocytes # (auto) 0.02 K/uL (0.00-0.02); Immature Granulocytes % (auto) 0.2 %; Lymphocytes # (auto) 2.03 K/uL (1.2-3.4); Lymphocytes % (auto) 22.8 %; Mean Corpuscular Hgb Conc 30.9 g/dL (32-36); Monocytes # (auto) 0.77 K/uL (0.11-0.59); Monocytes % (auto) 8.6 %; Neutrophils # (auto) 5.55 K/uL (1.4-6.5); Neutrophils % (auto) 62.4 %; Platelet Count 323 K/uL (130-400); RDW Standard Deviation 47.4 fL (36.4-46.3); Red Blood Count 3.36 M/uL (4.2-5.4); White Blood Count 8.91 K/uL (4.8-10.8)
[2018-11-17 06:58] LABS: BUN Creatinine Ratio 20.2 (10-20); Calcium 9.3 mg/dl (8.5-10.1); Creatinine Clr Calc Pharmacy 72.7 ml/min; Est GFR (African American) 72.8; Est GFR (Non-African American) 62.9; Potassium 4.7 mmol/L (3.5-5.1)
[2018-11-17] MEDS: INSULIN ASPART 100 UNITS/ML 3 ML PEN SC SCH ×2 (07:30→11:55)
[2018-11-17] MEDS: DOCUSATE SODIUM 100 MG CAP PO SCH (08:46)
[2018-11-17] MEDS: APIXABAN 5 MG TABLET PO SCH (08:47)
[2018-11-17] MEDS: CYCLOBENZAPRINE HCL 10 MG TAB PO PRN (08:47)
[2018-11-17] MEDS ORDERED: FERROUS SULFATE 325 MG TAB PO SCH (09:00)
[2018-11-17] MEDS ORDERED: CITALOPRAM 20 MG TAB PO SCH (09:00)
[2018-11-17] MEDS ORDERED: PANTOprazole 40 MG TAB PO SCH (09:00)
[2018-11-17] MEDS ORDERED: METOPROLOL SUCC 50MG EXT REL TAB PO SCH (09:00)
[2018-11-17] MEDS ORDERED: PREGABALIN 75 MG CAP PO SCH (09:00)
[2018-11-17] MEDS ORDERED: CHOLECALCIFEROL 1,000 UNITS TAB PO SCH (09:00)
[2018-11-17] MEDS ORDERED: MONTELUKAST SODIUM 10 MG TABLET PO SCH (09:00)
[2018-11-17 14:40] LABS: Troponin I < 0.015 ng/ml (0-0.045)
--- NOTE | 2018-11-17 15:35 | Consultation Report ---
DATE OF CONSULTATION: 11/17/2018 ORTHOPEDIC CONSULT HISTORY OF PRESENT ILLNESS: The patient presents as a 63-year-old white female well known to me from 1 week prior undergone a left total knee arthroplasty. She was at home doing physical therapy and was having feelings of weakness and felt her heart was racing, went to the Emergency Room, was admitted with atrial fibrillation. She today relates having no knee pain. She is doing well with physical therapy, range of motion 0-110 degrees. Her incision is healing well. No signs of infection are noted. She relates having really minimal to no pain of her left knee. Orthopedically, she is doing remarkably well. Plan is for continued medical management, stabilization of atrial fibrillation and medical management. We will follow with her as an outpatient for her left total knee arthroplasty.
--- NOTE | 2018-11-17 16:18 | Discharge Summary ---
Date of Service November 17, 2018 Admission HPI Per Admitting Provider Very pleasant 63-year-old female just discharged a few days ago after knee surgery. She notes she had been feeling weak and shaky after the surgery, gradually improved to where she felt she could go home. But at home things were going fairly badly. She continued to feel very weak she had palpitations and home therapy felt that her heart sounded irregular and fast calculating a pulse of about 120 and noting it sounded irregular. She felt like everything was excess exertion, feeling difficulty going up and down stairs or showering or regular activities of daily living feeling like a massive amount of exertion. Because of all of this she was not feeling well, and this combined with her heart rate of 120 while at rest with therapy saying it sounded irregular led to her coming to the ER. She also notes a history of some degree of coronary disease on cath done in [place] about 2 years ago. She notes a degree of easy fatigability and easy dyspnea on exertion, but she notes with her rather extensive and heavily recent surgical history she has a hard time telling what could possibly be coronary disease versus what is simply deconditioning and weakness from everything her body has gone through. Principal Diagnosis volume depletion new onset atrial flutter Discharge Exam gen chaitanya nad. heent nc at mmm. breathing unlabored no accessory muscles good effort sinus on monitor now --> on review had abrupt onset of atrial flutter to about 170bpm, lasted ~15mins then started to resolve with a few small bursts of flutter before returning to nsr completely. skin no rashes no pallor or icterus. L knee dressing intact, appearing c/d/i, no surrounding erythema. Discharge Data Allergies Allergy/AdvReac Type Severity Reaction Status Date / Time adhesive Allergy Mild Rash Verified 11/09/18 07:55 morphine Allergy Mild Rash Verified 11/09/18 07:55 Sulfa (Sulfonamide Allergy Mild Rash Verified 11/09/18 07:55 Antibiotics) prochlorperazine AdvReac Intermediate MUSCHLE Verified 11/09/18 07:55 [From Compazine] SPASMS ciprofloxacin [From Cipro] AdvReac Mild GI SYMPTOMS Verified 11/09/18 07:55 clarithromycin [From Biaxin] AdvReac Mild GI SYMPTOMS Verified 11/09/18 07:55 clindamycin AdvReac Mild GI SYMPTOMS Verified 11/09/18 07:55 levofloxacin [From Levaquin] AdvReac Mild GI SYMPTOMS Verified 11/09/18 07:55 moxifloxacin [From Avelox] AdvReac Mild N/V Verified 11/09/18 07:55 Penicillins AdvReac Mild GI SYMPTOMS Verified 11/09/18 07:55 Consultations 11/16/18 17:11 ED Decision to Admit Stat 11/16/18 18:58 Consult Health Information Management Stat Ordered Studies 11/16/18 14:10 CT angio chest PE protocol Stat neg for PE 11/16/18 14:11 US venous doppler LE BI Stat neg for DVT Lab Results 11/16/18 11/16/18 11/16/18 Range/Units 13:31 13:31 13:31 WBC 11.46 H (4.8-10.8) K/uL RBC 3.75 L (4.2-5.4) M/uL Hgb 9.7 L (12.0-16.0) g/dL Hct 30.1 L (37-47) % MCV 80.3 (80-100) fL MCH 25.9 (25-34) pg MCHC 32.2 (32-36) g/dL RDW Std Deviation 46.9 H (36.4-46.3) fL RDW Coeff of Jana 16.0 H (11.5-14.5) % Plt Count 383 (130-400) K/uL MPV 9.7 (7.4-10.4) fL Immature Gran % (Auto) 0.3 % Neut % (Auto) 65.2 % Lymph % (Auto) 21.7 % Fergus % (Auto) 8.0 % Eos % (Auto) 4.5 % Baso % (Auto) 0.3 % Immature Gran # (Auto) 0.03 H (0.00-0.02) K/uL Neut # (Auto) 7.46 H (1.4-6.5) K/uL Lymph # (Auto) 2.49 (1.2-3.4) K/uL Fergus # (Auto) 0.92 H (0.11-0.59) K/uL Eos # (Auto) 0.52 H (0-0.5) K/uL Baso # (Auto) 0.04 (0-0.2) K/uL PT 10.4 (9.0-12.0) Seconds INR 1.0 (0.9-1.1) APTT 27.1 (21.0-31.0) Seconds PTT Ratio 1.0 Sodium 136 (136-145) mmol/L Potassium 4.1 (3.5-5.1) mmol/L Chloride 104 (98-107) mmol/L Carbon Dioxide 24 (21-32) mmol/L Anion Gap 8.0 (3-11) BUN 26 H (7-18) mg/dl Creatinine 1.22 H (0.6-1.2) mg/dl Est Cr Clr Drug Dosing 55.9 ml/min Est GFR ( Amer) 53.8 Est GFR (Non-Af Amer) 46.5 BUN/Creatinine Ratio 21.0 H (10-20) Glucose 162 H (70-99) mg/dl POC Glucose (70-99) Calcium 9.9 (8.5-10.1) mg/dl Troponin I < 0.015 (0-0.045) ng/ml TSH (0.300-4.500) uIu/ml 11/16/18 11/16/18 11/17/18 Range/Units 19:24 20:24 06:20 WBC 8.91 (4.8-10.8) K/uL RBC 3.36 L (4.2-5.4) M/uL Hgb 8.4 L (12.0-16.0) g/dL Hct 27.2 L (37-47) % MCV 81.0 (80-100) fL MCH 25.0 (25-34) pg MCHC 30.9 L (32-36) g/dL RDW Std Deviation 47.4 H (36.4-46.3) fL RDW Coeff of Jana 16.0 H (11.5-14.5) % Plt Count 323 (130-400) K/uL MPV 9.0 (7.4-10.4) fL Immature Gran % (Auto) 0.2 % Neut % (Auto) 62.4 % Lymph % (Auto) 22.8 % Fergus % (Auto) 8.6 % Eos % (Auto) 5.6 % Baso % (Auto) 0.4 % Immature Gran # (Auto) 0.02 (0.00-0.02) K/uL Neut # (Auto) 5.55 (1.4-6.5) K/uL Lymph # (Auto) 2.03 (1.2-3.4) K/uL Fergus # (Auto) 0.77 H (0.11-0.59) K/uL Eos # (Auto) 0.50 (0-0.5) K/uL Baso # (Auto) 0.04 (0-0.2) K/uL PT (9.0-12.0) Seconds INR (0.9-1.1) APTT (21.0-31.0) Seconds PTT Ratio Sodium (136-145) mmol/L Potassium (3.5-5.1) mmol/L Chloride (98-107) mmol/L Carbon Dioxide (21-32) mmol/L Anion Gap (3-11) BUN (7-18) mg/dl Creatinine (0.6-1.2) mg/dl Est Cr Clr Drug Dosing ml/min Est GFR ( Amer) Est GFR (Non-Af Amer) BUN/Creatinine Ratio (10-20) Glucose (70-99) mg/dl POC Glucose 144 H (70-99) Calcium (8.5-10.1) mg/dl Troponin I < 0.015 (0-0.045) ng/ml TSH (0.300-4.500) uIu/ml 11/17/18 11/17/18 11/17/18 Range/Units 06:20 07:30 11:04 WBC (4.8-10.8) K/uL RBC (4.2-5.4) M/uL Hgb (12.0-16.0) g/dL Hct (37-47) % MCV (80-100) fL MCH (25-34) pg MCHC (32-36) g/dL RDW Std Deviation (36.4-46.3) fL RDW Coeff of Jana (11.5-14.5) % Plt Count (130-400) K/uL MPV (7.4-10.4) fL Immature Gran % (Auto) % Neut % (Auto) % Lymph % (Auto) % Fergus % (Auto) % Eos % (Auto) % Baso % (Auto) % Immature Gran # (Auto) (0.00-0.02) K/uL Neut # (Auto) (1.4-6.5) K/uL Lymph # (Auto) (1.2-3.4) K/uL Fergus # (Auto) (0.11-0.59) K/uL Eos # (Auto) (0-0.5) K/uL Baso # (Auto) (0-0.2) K/uL PT (9.0-12.0) Seconds INR (0.9-1.1) APTT (21.0-31.0) Seconds PTT Ratio Sodium 138 (136-145) mmol/L Potassium 4.7 (3.5-5.1) mmol/L Chloride 108 H (98-107) mmol/L Carbon Dioxide 24 (21-32) mmol/L Anion Gap 6.0 (3-11) BUN 19 H (7-18) mg/dl Creatinine 0.95 (0.6-1.2) mg/dl Est Cr Clr Drug Dosing 72.7 ml/min Est GFR ( Amer) 72.8 Est GFR (Non-Af Amer) 62.9 BUN/Creatinine Ratio 20.2 H (10-20) Glucose 143 H (70-99) mg/dl POC Glucose 140 H 120 H (70-99) Calcium 9.3 (8.5-10.1) mg/dl Troponin I (0-0.045) ng/ml TSH (0.300-4.500) uIu/ml 11/17/18 Range/Units 13:56 WBC (4.8-10.8) K/uL RBC (4.2-5.4) M/uL Hgb (12.0-16.0) g/dL Hct (37-47) % MCV (80-100) fL MCH (25-34) pg MCHC (32-36) g/dL RDW Std Deviation (36.4-46.3) fL RDW Coeff of Jana (11.5-14.5) % Plt Count (130-400) K/uL MPV (7.4-10.4) fL Immature Gran % (Auto) % Neut % (Auto) % Lymph % (Auto) % Fergus % (Auto) % Eos % (Auto) % Baso % (Auto) % Immature Gran # (Auto) (0.00-0.02) K/uL Neut # (Auto) (1.4-6.5) K/uL Lymph # (Auto) (1.2-3.4) K/uL Fergus # (Auto) (0.11-0.59) K/uL Eos # (Auto) (0-0.5) K/uL Baso # (Auto) (0-0.2) K/uL PT (9.0-12.0) Seconds INR (0.9-1.1) APTT (21.0-31.0) Seconds PTT Ratio Sodium (136-145) mmol/L Potassium (3.5-5.1) mmol/L Chloride (98-107) mmol/L Carbon Dioxide (21-32) mmol/L Anion Gap (3-11) BUN (7-18) mg/dl Creatinine (0.6-1.2) mg/dl Est Cr Clr Drug Dosing ml/min Est GFR ( Amer) Est GFR (Non-Af Amer) BUN/Creatinine Ratio (10-20) Glucose (70-99) mg/dl POC Glucose (70-99) Calcium (8.5-10.1) mg/dl Troponin I < 0.015 (0-0.045) ng/ml TSH 7.280 H (0.300-4.500) uIu/ml Hospital Course (1) Atrial flutter: New-onset. Seems to explain the palpitations and racing heart she was feeling. Already anticoagulated. Continue Eliquis indefinitely. Increase metoprolol succinate to 75 mg daily to affect better rate control. Currently appears to be paroxysmal, and is in sinus rhythm now. 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 Of note, even after racing to a rate of about 160-170 for approximately 20 minutes, her troponin was still undetectably low, which is reassuring as far as the status of her coronary disease. (2) Weakness: Likely multifactorial. -hypovolemia - corrected with fluids (she did have a mild degree of elevated creatinine up to 1.22 which improved with IV fluids) -aflutter - now nsr -deconditioning from recent surgery (3) Dyspnea on exertion: hypovolemia, atrial flutter (4) History of DVT (deep vein thrombosis): Continue anticoagulation (5) Iron deficiency: Continue home meds, outpatient follow-up, colonoscopy if not done recently (6) RLS (restless legs syndrome): Continue home meds, outpatient follow-up (7) HTN (hypertension): Resume home meds. Her Lasix and ARB were on hold initially due to her elevated creatinine at time of admission, now that her creatinine is back to normal ARB is resumed, Lasix to be resumed tomorrow, outpatient follow-up with PCP. (8) Fatigue: See above. Her TSH is approximately 7.2, but this would be too mild of an elevation to explain fatigue. (9) Anxiety: (10) DVT prophylaxis: Anticoagulated as per her home meds (11) Depression: Continue home meds (12) Diabetes: Follow-up with PCP (13) Asthma: Asymptomatic (14) Discharge planning issues: Stable for home. (15) Elevated TSH: Checked to screen for hyperthyroidism in the context of new onset atrial flutter. Mildly elevated TSH, outpatient follow-up with TSH and/or free T4 in 3-4 weeks, given her recent physiologic stressors. Total Time Total Time Spent Total Time Spent (In Minutes): >30 Discharge Plan Discharge Items Patient Disposition: Home - Home Health Services Reason For Visit: WEAKNESS Discharge Diagnosis: atrial flutter, volume depletion Discharge Goals: Diagnostic testing and Therapeutic intervention Activity: Resume your previous activity Activity Comment: continue to work with PT/OT to recover from the knee surgery Non-emergency contact: Primary Care Provider and Child Care Attendant School Call non-emergency contact if: you have any medication questions and your symptoms worsen Follow-up/Referrals: Lola Long MD [Primary Care Provider] - Diet: Regular Addtl Provider Instructions: atrial flutter -as we discussed, this is a fairly common irregular rhythm where the top part of the heart "quivers" instead of contracts - this then leads to a lot of signals to contract bombarding the ventricles -- because of the AV node (the "breaker box" that can slow down electricity coming from the atria) --> when those signals aren't filtered out as well, the ventricle can race - which is exactly what yours did --> we were able to see your heart going about 160-170 per minute, and then it slowed down and converted to a normal rhythm on its own -for most patients (and it appears that you are falling into that category), the main goals with atrial flutter (and it's "close cousin, atrial fibrillation) are to keep the rates under control and prevent strokes -keeping the rate under control right now appears quite easy - since you stopped the racing on your own, all it appears we'll need to do at this time is increase the metoprolol you already take from 50mg to 75mg once a day. follow how you're feeling - if you feel like your heart is racing more, Dr Long or Dr Ag may need to increase the dose a little further, or possibly add another "add on" medication. rarely they have to do more aggressive controlling means, like a cardioversion, but this is only likely to be a necessary procedure if you find yourself with your heart racing and it won't slow down despite medications. if you feel like things are racing and it won't stop- certainly either call for an urgent appointment, or if you're really feeling terrible, it would be reasonable to go to the ER -stroke prevention is quite simple given that you're already on the eliquis - simply continue taking it dehydration/volume depletion -a lot of the symptoms that you were feeling that brought you back to the ER (besides the racing heart) were due to volume depletion - joint replacement surgeries inherently have people's blood vessels "feel like you're dehydrated" for a little while afterwards - this appears to have been compounded by the volume loss from diarrhea. fortunately that has responded nicely to IV fluids. hold off on taking your lasix (furosemide) tomorrow, then resume it regularly on Thursday. as you follow up with Dr Long he can keep an eye on how it looks like things are going -it's quite probably that a lot of the "why now" for seeing the atrial flutter is the volume depletion from the surgery. under normal circumstances, people will have racing heart with volume depletion, and then when someone has a propensity to go into atrial fibrillation or flutter, a situation that can normally make a heart race can unmask the arrhythmia because of the IV dye they gave for doing the CT chest in the ER, please hold off on taking your metformin until tomorrow evening (11/18) --> thyroid levels are pending at the time of discharge, results should get to Dr Long, but if not, please have his office call [phone] so that we can make sure information gets to him! Prescriptions: Continued cyclobenzaprine 10 mg Tablet 2 tab PO TID PRN (Reason: Pain) RF: 0 atorvastatin 40 mg Tablet 40 mg PO HS RF: 0 citalopram 40 mg Tablet 60 mg PO QAM RF: 0 ergocalciferol (vitamin D2) 50,000 unit Capsule 50,000 unit PO WK RF: 0 cholecalciferol (vitamin D3) [Vitamin D3] 2,000 unit Tablet 2,000 unit PO QAM RF: 0 cyanocobalamin (vitamin B-12) 1,000 mcg/mL Kit 1,000 mcg SUBCUT MONTHLY RF: 0 furosemide [Lasix] 40 mg Tablet 40 mg PO QAM RF: 0 esomeprazole magnesium [Nexium] 40 mg Capsule,Delayed Release(Dr/Ec) 40 mg PO QAM RF: 0 pramipexole [Mirapex] 0.125 mg Tablet 2 tab PO HS RF: 0 montelukast [Singulair] 10 mg Tablet 10 mg PO QAM RF: 0 metformin 500 mg Tablet Extended Release 24 Hr 2 tab PO BID RF: 0 irbesartan 300 mg Tablet 300 mg PO QAM RF: 0 Lyrica 75 mg Capsule 75 mg PO UD RF: 0 Jardiance 10 mg Tablet 10 mg PO QAM RF: 0 hydrocodone-acetaminophen [Ider] 5-325 mg Tablet 1 - 2 tab PO .q6-8 hours PRN (Reason: pain) Qty: 30 RF: 0 ferrous sulfate 325 mg (65 mg iron) Tablet,Delayed Release (Dr/Ec) 325 mg PO QAM 14 Days Qty: 14 RF: 0 Eliquis 5 mg Tablet 5 mg PO BID 26 Days Qty: 52 RF: 0 docusate sodium 100 mg Capsule 100 mg PO BID 10 Days Qty: 20 RF: 0 cefadroxil 500 mg capsule 500 mg PO BID 10 Days Qty: 20 RF: 0 Changed metoprolol succinate [Toprol XL] 50 mg Tablet Extended Release 24 Hr 75 mg PO QAM Qty: 0 RF: 0 Stand-Alone Forms: [facility] Discharge Orders: Discharge Order (Routine); Ordered 11/17/18 Ordered By: Evaristo York Admission Data Admit Date/Time: 11/16/18 18:05 Attending Provider: Evaristo York Admit Provider: Evaristo York Primary Care Provider: Lola Long Other Providers: Bella Méndez Service: Telemetry Other Interventions: Discharge Summary Assessment (RN) Last Done: 11/17/18 13:49 DC Date/Time DO NOT enter until pt leaves facility: 11/17/18 14:29
[2018-11-18] MEDS ORDERED: METOPROLOL SUCC 50MG EXT REL TAB PO SCH (09:00)
[2018-11-20] MEDS ORDERED: ERGOCALCIFEROL 50,000 UNITS CAP PO SCH (09:00)
== END 2018-11-17 14:29 | disposition home health service (06) ==
LOC: ED 13:13 → 2S 13:13